=== PATIENT | male | born 1995 | race Hispanic/Latino ===

== ENCOUNTER 2018-07-15 19:48 | Emergency (ER) | payer SELFPAY ==
--- NOTE | 2018-07-15 20:39 | EDPHYS ---
Physician Documentation [facility] Name: Felix Frias Age: 23 yrs Sex: Male : 1995 Arrival Date: 07/15/2018 Time: 19:51 Bed 27 Private MD: ED Physician Edgar Restrepo HPI: 07/15 20:35 This 23 yrs old Male presents to ER via Ambulatory with complaints of Head cp Injury-Adult. 20:35 The patient or guardian reports injury. The complaints affect the top of head. Context cp of injury: The problem was sustained at work, stood up quickly while under metal bar at work this morning about 1100. Hit top of head on metal bar. No LOC. No vomiting since injury. Pain improved since injury. Historical: - Allergies: 20:14 No Known Allergies; sr5 - Home Meds: 20:14 None [Active]; sr5 - PMHx: 20:14 None; sr5 - PSHx: 20:14 None; sr5 - Immunization history:: Adult Immunizations unknown. - Social history:: Smoking status: Patient/guardian denies using tobacco, never smoked. - Ebola Screening: : Patient negative for fever greater than or equal to 101.5 degrees Fahrenheit, and additional compatible Ebola Virus Disease symptoms. ROS: 20:37 Constitutional: Negative for body aches, chills, fever, poor PO intake. cp 20:37 Neck: Negative for pain with movement, stiffness, bony tenderness. 20:37 Cardiovascular: Negative for chest pain, edema, palpitations. 20:37 Respiratory: Negative for cough, shortness of breath, wheezing. 20:37 Abdomen/GI: Negative for nausea, vomiting. 20:37 MS/extremity: Positive for contusion, of the top of head. 20:37 Neuro: Negative for altered mental status, headache, numbness, weakness. 20:37 All other systems are negative. Exam: 20:37 Constitutional: The patient appears in no acute distress, alert, awake, non-toxic, well cp developed, well nourished. 20:37 Head/Face: Normocephalic, atraumatic. cp 20:37 Eyes: Periorbital structures: appear normal, Pupils: equal, round, and reactive to light and accomodation, Extraocular movements: intact throughout, Conjunctiva: normal, no exudate, no injection, Sclera: no appreciated abnormality, Lids and lashes: appear normal, bilaterally. 20:37 ENT: External ear(s): are unremarkable, Ear canal(s): are normal, clear, TM's: bulging, is not appreciated, bilaterally, dullness, bilaterally, erythema, is not appreciated, bilaterally, Nose: is normal, Mouth: Lips: moist, Oral mucosa: pink and intact, moist, Posterior pharynx: is normal, airway is patent, no erythema, no exudate, Voice: is normal. 20:37 Neck: C-spine: vertebral tenderness, is not appreciated, crepitus, is not appreciated, ROM/movement: is normal, is supple, without pain, no range of motions limitations, no nuchal rigidity. 20:37 Chest/axilla: Inspection: normal, Palpation: is normal, no crepitus, no tenderness. 20:37 Cardiovascular: Rate: normal, Rhythm: regular. 20:37 Respiratory: the patient does not display signs of respiratory distress, Respirations: normal, no use of accessory muscles, no retractions, no splinting, no tachypnea, labored breathing, is not present, Breath sounds: are clear throughout, no decreased breath sounds, no stridor, no wheezing. 20:37 Abdomen/GI: Inspection: abdomen appears normal, Palpation: abdomen is soft and non-tender, in all quadrants. 20:37 Back: pain, is absent, ROM is normal. 20:37 Musculoskeletal/extremity: Exam is negative for bony tenderness, decreased range of motion, deformity, injury. 20:37 Skin: Exam negative for laceration. 20:37 Neuro: Orientation: to person, place \T\ time. Mentation: lucid, able to follow commands, Cerebellar function: is grossly normal, Motor: moves all fours, strength is normal, Sensation: no obvious gross deficits. Vital Signs: 20:14 BP 141 / 79; Pulse 62; Resp 14; Temp 98.6; Pulse Ox 97% on R/A; Weight 97.52 kg; Height sr5 5 ft. 6 in. (167.64 cm); Pain 4/10; 20:32 BP 126 / 72; Pulse 65; Resp 18; Pulse Ox 98% ; tl3 20:14 Body Mass Index 34.70 (97.52 kg, 167.64 cm) sr5 Adele Coma Score: 20:12 Eye Response: spontaneous(4). Verbal Response: oriented(5). Motor Response: obeys sr5 commands(6). Total: 15. 20:35 Eye Response: spontaneous(4). Verbal Response: oriented(5). Motor Response: obeys cp commands(6). Total: 15. 20:38 Eye Response: spontaneous(4). Verbal Response: oriented(5). Motor Response: obeys cp commands(6). Total: 15. MDM: 20:18 Patient medically screened. cp 20:30 Differential diagnosis: Contusion of head, Hematoma on head, Laceration of scalp, cp Intracranial bleed- Concussion without LOC. cerebral contusion. 20:38 Data reviewed: vital signs, nurses notes, and as a result, I will discharge patient. cp Counseling: I had a detailed discussion with the patient and/or guardian regarding: the historical points, exam findings, and any diagnostic results supporting the discharge/admit diagnosis, to return to the emergency department if symptoms worsen or persist or if there are any questions or concerns that arise at home. 07/15 20:29 Order name: Urine Dipstick--Ancillary (enter results) mw2 Administered Medications: No medications were administered Disposition: 21:00 Chart complete. cp 07/16 01:58 Co-signature as Attending Physician, Edgar Restrepo MD. rn Disposition: 07/15/18 20:38 Discharged to Home. Impression: Contusion of unspecified part of head. - Condition is Stable. - Discharge Instructions: Concussion, Adult, Head Injury, Adult. - Medication Reconciliation Form, Thank You Letter, Antibiotic Education, Prescription Opioid Use form. - Follow up: Emergency Department; When: As needed; Reason: Worsening of condition. - Problem is new. - Symptoms have improved. Signatures: Dispatcher [employer] Edgar Mccann MD MD rn Claude Hernandez PA PA cp Resecker, Sam, RN RN sr5 Lata Ackerman RN RN tl3 Corrections: (The following items were deleted from the chart) 07/15 20:46 20:38 07/15/2018 20:38 Discharged to Home. Impression: Contusion of unspecified part of tl3 head. Condition is Stable. Forms are Medication Reconciliation Form, Thank You Letter, Antibiotic Education, Prescription Opioid Use. Follow up: Emergency Department; When: As needed; Reason: Worsening of condition. Problem is new. Symptoms have improved. cp
--- NOTE | 2018-07-15 20:39 | ER ---
Nurse's Notes [facility] Name: Felix Frias Age: 23 yrs Sex: Male : 1995 Arrival Date: 07/15/2018 Time: 19:51 Bed 27 Private MD: Diagnosis: Contusion of unspecified part of head Presentation: 07/15 20:12 Presenting complaint: Patient states: hit head on bar "came up under bar" striking top sr5 of head, approx noon today while at work. Denies LOC/vomiting. Reports vision light sensitivity. Denies PMH. Transition of care: patient was not received from another setting of care. Mechanism of Injury: resulted from stood up stiking top of head on a metal bar. Onset of symptoms was July 15, 2018. Risk Assessment: Do you want to hurt yourself or someone else? Patient reports no desire to harm self or others. Initial Sepsis Screen: Does the patient meet any 2 criteria? No. Patient's initial sepsis screen is negative. Does the patient have a suspected source of infection? No. Patient's initial sepsis screen is negative. Care prior to arrival: Medication(s) given: MIDOL. 20:12 Method Of Arrival: Ambulatory sr5 20:12 Acuity: PARISH 4 sr5 Triage Assessment: 20:14 General: Appears in no apparent distress. Behavior is calm, cooperative. Pain: sr5 Complains of pain in left frontal area Pain currently is 4 out of 10 on a pain scale. Quality of pain is described as aching. Neuro: Level of Consciousness is awake, alert, obeys commands, Oriented to person, place, time, situation, Gait is steady, Reports photophobia. Cardiovascular: No deficits noted. Respiratory: No deficits noted. Historical: - Allergies: 20:14 No Known Allergies; sr5 - Home Meds: 20:14 None [Active]; sr5 - PMHx: 20:14 None; sr5 - PSHx: 20:14 None; sr5 - Immunization history:: Adult Immunizations unknown. - Social history:: Smoking status: Patient/guardian denies using tobacco, never smoked. - Ebola Screening: : Patient negative for fever greater than or equal to 101.5 degrees Fahrenheit, and additional compatible Ebola Virus Disease symptoms. Screenin:32 Abuse screen: Denies threats or abuse. Nutritional screening: No deficits noted. tl3 Tuberculosis screening: No symptoms or risk factors identified. Fall Risk None identified. Assessment: 20:32 General: Appears uncomfortable, well groomed, well developed, well nourished, Behavior tl3 is calm, cooperative, appropriate for age, anxious. Pain: Complains of pain in scalp and left frontal area. Neuro: Level of Consciousness is awake, alert, obeys commands, Oriented to person, place, time, situation, Appropriate for age Reports hit his head on a pipe this morning at about 11am, no LOC, no Vomiting, did get headache and light sensitivity earlier, no sensitivity currently. 20:32 Cardiovascular: Patient's skin is warm and dry. Respiratory: Airway is patent tl3 Respiratory effort is even, unlabored, Respiratory pattern is regular, symmetrical. GI: No signs and/or symptoms were reported involving the gastrointestinal system. : No signs and/or symptoms were reported regarding the genitourinary system. EENT: No signs and/or symptoms were reported regarding the EENT system. Derm: No signs and/or symptoms reported regarding the dermatologic system. Musculoskeletal: No signs and/or symptoms reported regarding the musculoskeletal system. Vital Signs: 20:14 BP 141 / 79; Pulse 62; Resp 14; Temp 98.6; Pulse Ox 97% on R/A; Weight 97.52 kg; Height sr5 5 ft. 6 in. (167.64 cm); Pain 4/10; 20:32 BP 126 / 72; Pulse 65; Resp 18; Pulse Ox 98% ; tl3 20:14 Body Mass Index 34.70 (97.52 kg, 167.64 cm) sr5 Commiskey Coma Score: 20:12 Eye Response: spontaneous(4). Verbal Response: oriented(5). Motor Response: obeys sr5 commands(6). Total: 15. 20:35 Eye Response: spontaneous(4). Verbal Response: oriented(5). Motor Response: obeys cp commands(6). Total: 15. 20:38 Eye Response: spontaneous(4). Verbal Response: oriented(5). Motor Response: obeys cp commands(6). Total: 15. ED Course: 19:51 Patient arrived in ED. es 20:13 Triage completed. sr5 20:14 Arm band placed on right wrist. sr5 20:18 Claude Hernandez PA is PHCP. cp 20:18 Edgar Restrepo MD is Attending Physician. cp 20:20 Urine collected: clean catch specimen, clear, ward colored. jp3 20:25 Lata Ackerman, RN is Primary Nurse. tl3 20:32 Patient has correct armband on for positive identification. Bed in low position. Pulse tl3 ox on. NIBP on. 20:32 No provider procedures requiring assistance completed. Patient did not have IV access tl3 during this emergency room visit. Administered Medications: No medications were administered Outcome: 20:38 Discharge ordered by MD. cp 20:45 Discharged to home ambulatory. tl3 20:45 Condition: good 20:45 Discharge instructions given to patient, Instructed on discharge instructions, follow up and referral plans. Demonstrated understanding of instructions, follow-up care. 20:46 Patient left the ED. tl3 Signatures: Khushbu Major Corey, PA PA cp Christopher Stockton RN RN sr5 Lata Ackerman, RN RN tl3 Hamzah Peñaloza jp3 Corrections: (The following items were deleted from the chart) 20:16 20:12 Care prior to arrival: None. sr5 sr5
[2018-07-15 21:45] LABS: Urine Blood TRACE (NEG); Urine Glucose NEGATIVE (NEG); Urine Protein NEGATIVE (NEG); Urine pH 7.5 (5.0-7.0)
== END 2018-07-15 20:46 | disposition home or self-care (01) ==
LOC: ER 19:48
DX: S00.93XA Contusion of unspecified part of head, initial encounter (principal); W22.8XXA Striking against or struck by other objects, initial encounter; Y93.89 Activity, other specified; Y92.89 Other specified places as the place of occurrence of the external cause; Y99.0 Civilian activity done for income or pay
CPT/HCPCS: 81003; 99283

== ENCOUNTER 2018-11-06 09:30 | Emergency (ER) | payer SELFPAY ==
--- NOTE | 2018-11-06 10:55 | EDPHYS ---
Physician Documentation [facility] Name: Felix Frias Age: 23 yrs Sex: Male : 1995 Arrival Date: 11/06/2018 Time: 09:34 Bed 12 Private MD: ED Physician Claude Hurtado HPI: 11/06 10:48 This 23 yrs old Male presents to ER via Ambulatory with complaints of Left pm1 Knee Pain. 10:48 The patient presents with pain. The complaints affect the left knee. Context: The pm1 problem was sustained at home, resulted from Pushing, moving furniture, the patient can fully bear weight, the patient is able to ambulate, without difficulty, Problem is a result from a previous injury: No. Onset: The symptoms/episode began/occurred 2.5 week(s) ago. Modifying factors: The symptoms are alleviated by nothing. the symptoms are aggravated by weight bearing, pushing with legs. Associated signs and symptoms: Pertinent negatives calf tenderness, fever, numbness, tingling, weakness. Treatment prior to arrival includes: no previous treatment. Severity of symptoms: in the emergency department the symptoms have improved. The patient has not experienced similar symptoms in the past. patient with bilateral knee pain that started 2.5 weeks ago after moving some furniture at home. Pain to right knee has resolved but he still has some left knee pain remaining. Left knee pain increased after moving additional furniture a few days ago. Historical: - Allergies: 09:46 No Known Allergies; aa5 - Home Meds: 09:46 None [Active]; aa5 - PMHx: 09:46 None; aa5 - Immunization history:: Adult Immunizations up to date. - Social history:: Smoking status: Patient uses tobacco products, smokes one-half pack cigarettes per day. - Ebola Screening: : No symptoms or risks identified at this time. ROS: 10:48 Constitutional: Negative for fever, chills, and weight loss, Eyes: Negative for injury, pm1 pain, redness, and discharge, ENT: Negative for injury, pain, and discharge, Neck: Negative for injury, pain, and swelling, Cardiovascular: Negative for chest pain, palpitations, and edema, Respiratory: Negative for shortness of breath, cough, wheezing, and pleuritic chest pain, Abdomen/GI: Negative for abdominal pain, nausea, vomiting, diarrhea, and constipation, Back: Negative for injury and pain, : Negative for injury, bleeding, discharge, and swelling. 10:48 Skin: Negative for injury, rash, and discoloration, Neuro: Negative for headache, weakness, numbness, tingling, and seizure. 10:48 MS/extremity: Positive for pain, of the left knee, Negative for decreased range of motion, deformity. Exam: 10:48 Constitutional: This is a well developed, well nourished patient who is awake, alert, pm1 and in no acute distress. Head/Face: Normocephalic, atraumatic. Eyes: Pupils equal round and reactive to light, extra-ocular motions intact. Lids and lashes normal. Conjunctiva and sclera are non-icteric and not injected. Cornea within normal limits. Periorbital areas with no swelling, redness, or edema. ENT: Nares patent. No nasal discharge, no septal abnormalities noted. Tympanic membranes are normal and external auditory canals are clear. Oropharynx with no redness, swelling, or masses, exudates, or evidence of obstruction, uvula midline. Mucous membranes moist. Neck: Trachea midline, no thyromegaly or masses palpated, and no cervical lymphadenopathy. Supple, full range of motion without nuchal rigidity, or vertebral point tenderness. No Meningismus. Chest/axilla: Normal chest wall appearance and motion. Nontender with no deformity. No lesions are appreciated. Cardiovascular: Regular rate and rhythm with a normal S1 and S2. No gallops, murmurs, or rubs. Normal PMI, no JVD. No pulse deficits. Respiratory: Lungs have equal breath sounds bilaterally, clear to auscultation and percussion. No rales, rhonchi or wheezes noted. No increased work of breathing, no retractions or nasal flaring. Abdomen/GI: Soft, non-tender, with normal bowel sounds. No distension or tympany. No guarding or rebound. No evidence of tenderness throughout. Back: No spinal tenderness. No costovertebral tenderness. Full range of motion. Skin: Warm, dry with normal turgor. Normal color with no rashes, no lesions, and no evidence of cellulitis. 10:48 Musculoskeletal/extremity: Extremities: all appear grossly normal, with no appreciated pain with palpation, ROM: intact in all extremities, full active range of motion, in the left knee, full passive range of motion, in the left knee. 10:48 Neuro: Orientation: is normal, Motor: is normal, Gait: is steady, at a normal pace, without difficulty. Vital Signs: 09:46 BP 128 / 75; Pulse 75; Resp 18 S; Temp 98.4(O); Pulse Ox 99% on R/A; Weight 103.42 kg aa5 (R); Height 5 ft. 6 in. (167.64 cm) (R); Pain 0/10; 09:46 Body Mass Index 36.80 (103.42 kg, 167.64 cm) aa5 MDM: 09:56 Patient medically screened. [facility] 10:53 Data reviewed: vital signs. Data interpreted: Pulse oximetry: on room air is 99 %. pm1 Interpretation: normal. Counseling: I had a detailed discussion with the patient and/or guardian regarding: the historical points, exam findings, and any diagnostic results supporting the discharge/admit diagnosis, the need for outpatient follow up, for definitive care, a orthopedic surgeon, MRI, to return to the emergency department if symptoms worsen or persist or if there are any questions or concerns that arise at home. 11/06 10:24 Order name: Alex wrap-joint; Complete Time: 10:52 pm1 Administered Medications: 11:00 Drug: Ibuprofen 600 mg Route: PO; 11:02 Follow up: Response: No adverse reaction; Medication administered at discharge. 11:00 Drug: Flexeril 10 mg Route: PO; 11:02 Follow up: Response: No adverse reaction; Medication administered at discharge. Disposition: 11/07 06:30 Co-signature as Attending Physician, Claude Hurtado MD I agree with the assessment and [facility] plan of care. Disposition: 11/06/18 10:54 Discharged to Home. Impression: Pain in left knee. - Condition is Stable. - Discharge Instructions: Joint Pain, Musculoskeletal Pain, Knee Pain. - Prescriptions for Naprosyn 500 mg Oral Tablet - take 1 tablet by ORAL route 2 times per day As needed take with food; 30 tablet. Cyclobenzaprine 10 mg Oral Tablet - take 1 tablet by ORAL route every 8 hours As needed; 30 tablet. - Work release form, Medication Reconciliation Form, Thank You Letter, Antibiotic Education, Prescription Opioid Use form. - Follow up: Private Physician; When: 2 - 3 days; Reason: Recheck today's complaints, Continuance of care, Re-evaluation by your physician. Follow up: Emergency Department; When: As needed; Reason: Worsening of condition. - Problem is new. - Symptoms have improved. Signatures: Claude Hurtado MD MD cha Calderon, Audri, RN RN aa5 Gilma Clinton RN RN ss Jeremías Messina, CONSOLE ATTENDANT CONSOLE ATTENDANT pm1 Corrections: (The following items were deleted from the chart) 11/06 11:08 10:54 11/06/2018 10:54 Discharged to Home. Impression: Pain in left knee. Condition is ss Stable. Forms are Medication Reconciliation Form, Thank You Letter, Antibiotic Education, Prescription Opioid Use. Follow up: Private Physician; When: 2 - 3 days; Reason: Recheck today's complaints, Continuance of care, Re-evaluation by your physician. Follow up: Emergency Department; When: As needed; Reason: Worsening of condition. Problem is new. Symptoms have improved. pm1
--- NOTE | 2018-11-06 10:55 | ER ---
Nurse's Notes [facility] Name: Felix Frias Age: 23 yrs Sex: Male : 1995 Arrival Date: 11/06/2018 Time: 09:34 Bed 12 Private MD: Diagnosis: Pain in left knee Presentation: 11/06 09:44 Presenting complaint: Patient states: joseph knee pain. Pt states "I was moving stuff aa5 about 2 weeks ago and that's when the pain started but yesterday I moved something heavy and it started hurting again, the left one hurts worse". Steady gait noted. Transition of care: patient was not received from another setting of care. Onset of symptoms was October 2018. Risk Assessment: Do you want to hurt yourself or someone else? Patient reports no desire to harm self or others. Initial Sepsis Screen: Does the patient meet any 2 criteria? No. Patient's initial sepsis screen is negative. Does the patient have a suspected source of infection? No. Patient's initial sepsis screen is negative. Care prior to arrival: None. 09:44 Method Of Arrival: Ambulatory [facility] 09:44 Acuity: PARISH 4 aa5 Historical: - Allergies: 09:46 No Known Allergies; aa5 - Home Meds: 09:46 None [Active]; aa5 - PMHx: 09:46 None; aa5 - Immunization history:: Adult Immunizations up to date. - Social history:: Smoking status: Patient uses tobacco products, smokes one-half pack cigarettes per day. - Ebola Screening: : No symptoms or risks identified at this time. Screenin:49 Abuse screen: Denies threats or abuse. Nutritional screening: No deficits noted. aa5 Tuberculosis screening: No symptoms or risk factors identified. Fall Risk None identified. Assessment: 09:45 General: Appears comfortable, Behavior is calm, cooperative. Pain: Complains of pain in aa5 joseph knees Pain does not radiate. Pain currently is 0 out of 10 on a pain scale. Quality of pain is described as aching, Pain began 2 weeks ago. Pt reports pain only with movement and walking. Neuro: Level of Consciousness is awake, alert, obeys commands, Oriented to person, place, time, situation. Cardiovascular: No deficits noted. Patient's skin is warm and dry. Respiratory: Airway is patent Respiratory effort is even, unlabored, Respiratory pattern is regular, symmetrical. GI: No signs and/or symptoms were reported involving the gastrointestinal system. : No signs and/or symptoms were reported regarding the genitourinary system. EENT: No signs and/or symptoms were reported regarding the EENT system. Derm: Skin is pink, warm \\T\\ dry. Musculoskeletal: Range of motion: intact in all extremities. 11:00 Reassessment: Patient appears in no apparent distress at this time. Patient and/or ss family updated on plan of care and expected duration. Pain level reassessed. Patient is alert, oriented x 3, equal unlabored respirations, skin warm/dry/pink. Pt reports instant relief from knee pain after application of ALEX wrap to L knee. Vital Signs: 09:46 BP 128 / 75; Pulse 75; Resp 18 S; Temp 98.4(O); Pulse Ox 99% on R/A; Weight 103.42 kg aa5 (R); Height 5 ft. 6 in. (167.64 cm) (R); Pain 0/10; 09:46 Body Mass Index 36.80 (103.42 kg, 167.64 cm) aa5 ED Course: 09:34 Patient arrived in ED. rg4 09:46 Triage completed. aa5 09:46 Leonie Dumont, RN is Primary Nurse. aa5 09:46 Arm band placed on. aa5 09:46 Patient has correct armband on for positive identification. Call light in reach. aa5 09:49 No provider procedures requiring assistance completed. aa5 09:56 Jeremías Messina NP is PHCP. pm1 09:56 Claude Hurtado MD is Attending Physician. pm1 11:00 Patient did not have IV access during this emergency room visit. ss 11:01 Alex wrap to left knee. ss Administered Medications: 11:00 Drug: Ibuprofen 600 mg Route: PO; ss 11:02 Follow up: Response: No adverse reaction; Medication administered at discharge. ss 11:00 Drug: Flexeril 10 mg Route: PO; ss 11:02 Follow up: Response: No adverse reaction; Medication administered at discharge. Outcome: 10:54 Discharge ordered by . pm1 11:08 Discharged to home ambulatory. ss 11:08 Condition: good 11:08 Discharge instructions given to patient, Instructed on discharge instructions, follow up and referral plans. medication usage, Demonstrated understanding of instructions, follow-up care, medications, Prescriptions given X 2. 11:08 Patient left the ED. Signatures: Leonie Dumont RN RN aa5 Gilma Clinton RN RN ss Jeremías Messina, OFFICE SERVICES ASSISTANT OFFICE SERVICES ASSISTANT pm1 Consuelo Hatfield rg4 Corrections: (The following items were deleted from the chart) 09:49 09:44 Presenting complaint: Patient states: joseph knee pain. Pt states "I was moving aa5 stuff about 2 weeks ago and that's when the pain started but yesterday I moved something heavy and it started hurting again, the left one hurts worse" aa5 11:08 11:08 Discharge instructions given to patient, family, Instructed on discharge instructions, follow up and referral plans. medication usage, Demonstrated understanding of instructions, follow-up care, medications, Prescriptions given X 2, ss
[2018-11-06] MEDS ORDERED: CYCLOBENZAPRINE 10 MG TAB ONE (11:05)
[2018-11-06] MEDS ORDERED: IBUPROFEN 200 MG TAB PO ONE (11:06)
== END 2018-11-06 11:08 | disposition home or self-care (01) ==
LOC: ER 09:30
DX: M25.562 Pain in left knee (principal); F17.210 Nicotine dependence, cigarettes, uncomplicated
CPT/HCPCS: 99283

== ENCOUNTER 2019-01-28 22:08 | Inpatient (IN) | payer SELFPAY ==
[2019-01-28] MEDS ORDERED: NA CHLORIDE 0.9% 1,000 ML ONE ×2 (22:21→23:14)
[2019-01-28 22:36] LABS: Absolute Lymphocytes (CBC) 1.3 K/uL (0.7-4.9); Absolute Monocytes 1.8 K/uL (0.1-1.3); Absolute Neutrophil 21.3 K/uL (1.8-8.0); Basophils % 0.2 % (0-1.3); Eosinophils % 0.5 % (0-4.4); Hematocrit 55.2 % (39.6-49.0); Lymphocytes % 5.2 % (15.3-44.8); MPV 8.4 fL (7.6-11.3); Monocytes % 7.2 % (3.3-12.3); RBC Red Blood Cell Count 5.97 M/uL (4.33-5.43)
[2019-01-28] MEDS ORDERED: PROPOFOL 1,000 MG/100 ML VIAL IV ONE (22:38)
[2019-01-28 22:42] LABS: Protime INR 1.03
[2019-01-28 23:01] LABS: Barbiturates NEGATIVE (NEGATIVE); Benzodiazepines NEGATIVE (NEGATIVE); Cocaine NEGATIVE (NEGATIVE); METHAMPHETAM NEGATIVE (NEGATIVE); Methadone NEGATIVE (NEGATIVE); Opiates POSITIVE (NEGATIVE); Phencyclidine POSITIVE (NEGATIVE); THC Cannibis NEGATIVE (NEGATIVE)
[2019-01-28 23:04] LABS: ALT/SGPT 39 U/L (12-78); AST/SGOT 21 U/L (15-37); Albumin 4.3 g/dL (3.4-5.0); Alkaline Phosphatase 88 U/L (45-117); BUN Blood Urea Nitrogen 15 mg/dL (7-18); Bicarbonate 25 mmol/L (21-32); Bilirubin Direct 0.1 mg/dL (0-0.2); Bilirubin Total 0.4 mg/dL (0.2-1.0); Glucose Level 124 mg/dL (74-106); Potassium 4.1 mmol/L (3.5-5.1); Protein, Total 8.4 g/dL (6.4-8.2); Sodium Level 137 mmol/L (136-145)
[2019-01-28 23:14] LABS: Urine Blood NEGATIVE (NEG); Urine Glucose NEGATIVE (NEG); Urine Protein 2+ (NEG); Urine pH 5.5 (5.0-7.0)
[2019-01-28] MEDS ORDERED: LORazepam 2 MG/ML VIAL ONE (23:40)
[2019-01-28 23:56] LABS: Blood Morphology Comment NOT SEEN (NOT SEEN); Platelet Estimate ADEQ
[2019-01-29] MEDS ORDERED: NA CHLORIDE 0.9% 1,000 ML ONE ×3 (00:27→09:53)
--- NOTE | 2019-01-29 01:49 | EDPHYS ---
Physician Documentation [facility] Name: Felix Frias Age: 23 yrs Sex: Male : 1995 Arrival Date: 01/28/2019 Time: 22:09 Bed 3 Private MD: ED Physician Josué Beltran HPI: 01/29 01:34 This 23 yrs old Male presents to ER via EMS with complaints of Overdose. jr8 01:34 The patient presents to the emergency department after a known overdose, that was jr8 intentional. Context: Method: the patient has a confirmed or suspected ingestion, Psychiatric history: the patient has a known psychiatric disorder, depression. Associated signs and symptoms: Pertinent positives: decreased level of consciousness. Severity of symptoms: At their worst the symptoms were moderate in the emergency department the symptoms are unchanged. It is unknown whether or not the patient has had similar symptoms in the past. The patient has not recently seen a physician. EMS stated that last known well was around 5pm. Stated that sister found him unconscious and unresponsive when she got home. Had cough medicine around him amongst other medications that the family uses. History of depression and SI in past. Stated that he has been more depressed as of lately. Medicine that he possible ingested tonight is Tramadol, Amitriptyline, Phenergan, NyQuil, and cough syrup . Historical: - Allergies: 01/28 23:00 No Known Allergies; lp1 - Immunization history:: Adult Immunizations unknown. - Social history:: Smoking status: unknown. - Ebola Screening: : No symptoms or risks identified at this time. ROS: 01/29 01:34 Unable to obtain ROS due to altered mental status, obtunded state. jr8 Exam: 01:34 Eyes: Pupils equal round and reactive to light but sluggish. Extra-ocular motions jr8 intact. Lids and lashes normal. Conjunctiva and sclera are non-icteric and not injected. Cornea within normal limits. Periorbital areas with no swelling, redness, or edema. ENT: Nares patent. No nasal discharge, no septal abnormalities noted. Tympanic membranes are normal and external auditory canals are clear. Oropharynx with no redness, swelling, or masses, exudates, or evidence of obstruction, uvula midline. Mucous membranes moist. Neck: Trachea midline, no thyromegaly or masses palpated, and no cervical lymphadenopathy. Supple, full range of motion without nuchal rigidity, or vertebral point tenderness. No Meningismus. Cardiovascular: Sinus Tachycardia with a normal rhythm with a normal S1 and S2. No gallops, murmurs, or rubs. Normal PMI, no JVD. No pulse deficits. Respiratory: Lungs have equal breath sounds bilaterally, clear to auscultation and percussion. No rales, rhonchi or wheezes noted. Shallow respirations present. Abdomen/GI: Soft with normal bowel sounds. No distension or tympany. No guarding or rebound Skin: Warm, dry with normal turgor. Normal color with no rashes, no lesions, and no evidence of cellulitis. MS/ Extremity: Pulses equal, no cyanosis. Neurovascular intact. Full, normal range of motion. 01:34 Neuro: Orientation: Not oriented to person, place, time, situation, Mentation: unable to follow commands, somnolent, responsive to pain, Memory: immediate memory is impaired, remote memory is impaired, recent memory is impaired, Motor: moves all fours, Gait: not tested. seizure activity, is not displayed by the patient, Abnormal movements: there are no abnormal movements. Vital Signs: 01/28 21:54 BP 137 / 73; Pulse 130; Resp 10; Pulse Ox 84% on R/A; Weight 108.86 kg; lp1 22:00 BP 122 / 91; Pulse 133; Pulse Ox 97% on BVM; lp1 22:15 BP 141 / 99; Pulse 130; Resp 15; Pulse Ox 97% on 50% FiO2 ETT vent; lp1 22:20 BP 136 / 76; Pulse 145; Resp 17; Pulse Ox 100% on 50% FiO2 ETT vent; lp1 22:30 BP 117 / 79; Pulse 130; Resp 17; Pulse Ox 97% on 50% FiO2 ETT vent; lp1 22:40 BP 147 / 90; Pulse 126; Resp 18; Pulse Ox 98% on 50% FiO2 ETT vent; lp1 23:00 BP 137 / 49; Pulse 128; Resp 18; Temp 97.7(C); Pulse Ox 99% on 50% FiO2 ETT vent; lp1 23:15 BP 128 / 40; Pulse 134; Resp 18; Temp 98.1(C); Pulse Ox 98% on 50% FiO2 ETT vent; lp1 23:45 BP 86 / 30; Pulse 127; Resp 18; Temp 98.2(C); Pulse Ox 98% on 50% FiO2 ETT vent; lp1 01/29 00:00 BP 90 / 36; Pulse 125; Resp 18; Temp 98.3(C); Pulse Ox 98% on 50% FiO2 ETT vent; lp1 00:10 BP 91 / 41; Pulse 124; Resp 18; Temp 98.3(C); Pulse Ox 98% on ETT vent; lp1 00:20 BP 83 / 35; Pulse 125; Resp 18; Temp 98.3(C); Pulse Ox 98% on 50% FiO2 ETT vent; lp1 00:50 BP 80 / 37; Pulse 129; Resp 18; Temp 98.5(C); Pulse Ox 98% on 50% FiO2 ETT vent; lp1 01:10 BP 83 / 44; Pulse 126; Resp 18; Temp 98.6(C); Pulse Ox 98% on 50% FiO2 ETT vent; lp1 01:30 BP 83 / 37; Pulse 125; Resp 18; Temp 98.6(C); Pulse Ox 98% on 50% FiO2 ETT vent; lp1 01:40 BP 108 / 52; Pulse 125; Resp 18; Temp 98.6(C); Pulse Ox 98% on 50% FiO2 ETT vent; lp1 01:50 BP 100 / 34; Pulse 124; Resp 22; Temp 98.6(C); Pulse Ox 99% on 50% FiO2 ETT vent; lp1 02:00 BP 88 / 35; Pulse 117; Resp 18; Temp 98.5(C); Pulse Ox 96% on 50% FiO2 ETT vent; lp1 02:15 BP 87 / 35; Pulse 117; Resp 18; Temp 98.7(C); Pulse Ox 96% on 50% FiO2 ETT vent; lp1 02:30 BP 96 / 43; Pulse 120; Resp 18; Temp 98.8(C); Pulse Ox 97% on 50% FiO2 ETT vent; lp1 02:50 BP 93 / 39; Pulse 123; Resp 18; Temp 98.8(C); Pulse Ox 96% on 50% FiO2 ETT vent; lp1 03:00 BP 108 / 51; Pulse 122; Resp 18; Temp 98.9(C); Pulse Ox 96% on 50% FiO2 ETT vent; lp1 03:20 BP 113 / 38; Pulse 125; Resp 18; Temp 99.1(C); Pulse Ox 95% on 50% FiO2 ETT vent; lp1 03:40 BP 113 / 39; Pulse 122; Resp 22; Temp 99.2(C); Pulse Ox 94% on 50% FiO2 ETT vent; lp1 04:00 BP 107 / 39; Pulse 121; Resp 18; Temp 99.4(C); Pulse Ox 95% on 50% FiO2 ETT vent; lp1 04:20 BP 109 / 44; Pulse 120; Resp 18; Temp 99.6(C); Pulse Ox 95% on 50% FiO2 ETT vent; lp1 04:40 BP 109 / 41; Pulse 120; Resp 18; Temp 99.7(C); Pulse Ox 95% on 50% FiO2 ETT vent; lp1 05:00 BP 131 / 58; Pulse 124; Resp 18; Temp 99.8(C); Pulse Ox 95% on 50% FiO2 ETT vent; lp1 [place] Coma Score: 01/28 21:55 Eye Response: to pain(2). Verbal Response: incomprehensible(2). Motor Response: lp1 withdraws from pain(4). Total: 8. 01/29 01:34 Eye Response: to pain(2). Verbal Response: incomprehensible(2). Motor Response: jr8 withdraws from pain(4). Total: 8. Procedures: 01:46 Intubation: Ventilated with 100% NRB prior to procedure. O2 saturation prior to jr8 procedure was 95 %. Intubated orally using # 4 Sallie blade with 8.0 mm ETT. was successful on first attempt. Ventilated with Ambu bag. ventilator. Tube secured with ETT olivo at center of mouth measured 23 cm at lip. Placement verified by CXR, CO2 detector with (+) color change, auscultating bilateral breath sounds, O2 saturation after procedure was 100 %. Patient tolerated well. 02:20 Central Line: the site was prepped with Betadine, in sterile fashion, a triple lumen jr8 catheter was inserted, in the right femoral vein, in 1 attempts. placement was verified, by blood return, the site was dressed with 4X4s, Tegaderm, foam tape, using sterile technique, the patient tolerated the procedure, well. MDM: 01/28 22:23 Patient medically screened. [facility] 01/29 01:46 Data reviewed: vital signs, nurses notes, lab test result(s), EKG, radiologic studies, [facility] plain films. Data interpreted: Pulse oximetry: on ventilator is 100 %. Interpretation: normal. Counseling: I had a detailed discussion with the patient and/or guardian regarding: the historical points, exam findings, and any diagnostic results supporting the discharge/admit diagnosis, lab results, radiology results, the need for further work-up and treatment in the hospital. Physician consultation: Grace Gregorio MD was called at 01:47, was contacted at 01:47, regarding admission, to the ICU, consult, patient's condition, and will see patient in ED. 01/28 22:24 Order name: Acetaminophen; Complete Time: 23:14 [facility] 01/28 22:24 Order name: Basic Metabolic Panel; Complete Time: 23:14 [facility] 01/28 22:24 Order name: CBC with Diff; Complete Time: 01:03 [facility] 01/28 22:24 Order name: ETOH Level; Complete Time: 23:14 [facility] 01/28 22:24 Order name: Hepatic Function; Complete Time: 23:14 [facility] 01/28 22:24 Order name: PT-INR; Complete Time: 23:14 [facility] 01/28 22:24 Order name: Ptt, Activated; Complete Time: 23:14 [facility] 01/28 22:24 Order name: Salicylate; Complete Time: 23:14 [facility] 01/28 22:24 Order name: Urine Drug Screen; Complete Time: 23:14 [facility] 01/28 22:37 Order name: Urine Dipstick--Ancillary (enter results); Complete Time: 23:16 eb 01/28 23:56 Order name: Manual Differential; Complete Time: 01:03 EDMS 01/29 02:02 Order name: CPK; Complete Time: 02:56 lp1 01/29 02:02 Order name: Acetaminophen; Complete Time: 02:56 lp1 01/29 02:02 Order name: Basic Metabolic Panel; Complete Time: 02:56 lp1 01/28 22:24 Order name: XRAY Chest (1 view); Complete Time: 10:42 [facility] 01/29 06:10 Order name: ABG Arterial Blood Gas; Complete Time: 10:42 EDHI 01/29 07:06 Order name: Acetaminophen Level; Complete Time: 10:42 EDMS 01/29 10:54 Order name: Lactate [facility] 01/29 10:54 Order name: Comprehensive Metabolic Panel [facility] 01/29 10:55 Order name: Creatine Phosphokinase ED[facility] 01/29 10:55 Order name: CKMB Creatine Kinase MB EDHI 01/29 10:55 Order name: CBC with Automated Diff [facility] 01/29 12:38 Order name: Sputum Culture ag 01/29 16:44 Order name: CBC with Automated Diff EDMS 01/29 17:06 Order name: Comprehensive Metabolic Panel ED[facility] 01/29 17:06 Order name: Phosphorus [facility] 01/29 17:06 Order name: Creatine Phosphokinase [facility] 01/29 17:06 Order name: CKMB Creatine Kinase MB [facility] 01/29 17:06 Order name: Magnesium [facility] 01/29 17:40 Order name: Lactate Sepsis 2 HR Follow-up [facility] 01/28 22:24 Order name: EKG; Complete Time: 22:24 [facility] 01/28 22:24 Order name: EKG - Nurse/Tech; Complete Time: 22:48 [facility] 01/28 22:24 Order name: IV Saline Lock; Complete Time: 23:44 [facility] 01/28 22:24 Order name: Labs collected and sent; Complete Time: 23:44 8 01/28 22:24 Order name: Urine Dipstick-Ancillary (obtain specimen); Complete Time: 22:48 [facility] 01/28 22:24 Order name: [place]; Complete Time: 23:44 [facility] 01/28 22:24 Order name: NG Tube; Complete Time: 23:44 8 Administered Medications: Discontinued: Propofol 5 mcg/kg/min IV at calculated rate continuous; titrate per protocol (titrate by 5-10mcg/kg/min every 10 min to max rate of 50 mcg/kg/min) 01/28 22:10 Drug: NS 0.9% 1000 ml Route: IV; Rate: 1000 ml; Site: left antecubital; lp1 23:00 Follow up: IV Status: Completed infusion; IV Intake: 1000ml lp1 22:14 Drug: Etomidate 10 mg Route: IVP; Site: left antecubital; lp1 22:20 Follow up: Response: No adverse reaction lp1 22:15 Drug: Rocuronium 100 mg Route: IVP; Site: left antecubital; lp1 22:20 Follow up: Response: No adverse reaction lp1 22:19 Drug: Succinylcholine 100 mg Route: IVP; Site: left hand; lp1 22:20 Follow up: Response: No adverse reaction lp1 22:20 Drug: Propofol 5 mcg/kg/min Route: IV; Rate: calculated rate; Site: left hand; lp1 23:11 Drug: NS 0.9% 1000 ml Route: IV; Rate: 1000 ml; Site: left hand; lp1 01/29 00:00 Follow up: IV Status: Completed infusion; IV Intake: 1000ml lp1 01/28 23:35 Drug: Ativan 2 mg Route: IVP; Site: right antecubital; lp1 01/29 00:30 Follow up: Response: No adverse reaction lp1 00:45 Drug: NS 0.9% 1000 ml Route: IV; Rate: 1000 ml; Site: right antecubital; lp1 02:00 Follow up: IV Status: Completed infusion; IV Intake: 1000ml lp1 02:00 Drug: Ativan 2 mg Route: IVP; Site: left hand; lp1 03:00 Follow up: Response: No adverse reaction lp1 02:29 Drug: NS 0.9% 1000 ml Route: IV; Rate: 125 ml/hr; Site: right femoral; lp1 05:14 Follow up: IV Status: Infusion continued upon admission lp1 02:29 Drug: Levophed (4 mg/250 mL D5W 4 mcg/min Route: IV; Rate: calculated rate; Site: right lp1 femoral; 03:00 Follow up: Rate change 10 mcg/min lp1 05:14 Follow up: IV Status: Infusion continued upon admission lp1 Disposition: 01/29/19 01:48 Hospitalization ordered by Grace Gregorio for Inpatient Admission. Preliminary diagnosis are Suicide attempt, Overdose, Hypotension. - Bed requested for Intensive Care Unit. - Status is Inpatient Admission. jb1 - Condition is Fair. - Problem is new. - Symptoms have improved. UTI on Admission? No Critical care time excluding procedures: 02:20 Critical care time: Bedside Care: 20 minutes, Consultation: 10 minutes, Family jr8 Intervention: 10 minutes. Total time: 40 minutes Signatures: Dispatcher [employer] EDMS Brett Loera jb1 Kary Zhou Corey, MD MD cha Pena, Laura RN RN lp1 Kentrell Awad PA PA jr8 Whitney Akers Corrections: (The following items were deleted from the chart) 02:03 01:48 Hospitalization Ordered by Grace Gregorio MD for Inpatient Admission. Preliminary eb diagnosis is Suicide attempt; Overdose; Hypotension. Bed requested for Intensive Care Unit. Status is Inpatient Admission. Condition is Fair. Problem is new. Symptoms have improved. UTI on Admission? No. jr8 16:53 02:03 01/29/2019 01:48 Hospitalization Ordered by Grace Gregorio MD for Inpatient bd Admission. Preliminary diagnosis is Suicide attempt; Overdose; Hypotension. Bed requested for [facility] ER HOLD. Status is Inpatient Admission. Condition is Fair. Problem is new. Symptoms have improved. UTI on Admission? No. eb 18:12 16:53 01/29/2019 01:48 Hospitalization Ordered by Grace Gregorio MD for Inpatient jb1 Admission. Preliminary diagnosis is Suicide attempt; Overdose; Hypotension. Bed requested for Intensive Care Unit. Status is Inpatient Admission. Condition is Fair. Problem is new. Symptoms have improved. UTI on Admission? No. bd
--- NOTE | 2019-01-29 01:49 | ER ---
Nurse's Notes [facility] Name: Felix Frias Age: 23 yrs Sex: Male : 1995 Arrival Date: 01/28/2019 Time: 22:09 Bed 3 Private MD: Diagnosis: Suicide attempt;Overdose;Hypotension Presentation: 01/28 21:50 Presenting complaint: EMS states: Called for patient with possible Nyquil Overdose; Per lp1 EMS, patient found with x3 Nyquil bottles around him; Unknown if pills also taken; Hx of previous suicide attempts; Patient arousable on painful stimuli. Transition of care: patient was not received from another setting of care. Onset of symptoms was January 28, 2019 at 17:00. Risk Assessment: Do you want to hurt yourself or someone else? Patient reports desire/thoughts of hurting themselves or someone else. Provider notified. Initial Sepsis Screen: Does the patient meet any 2 criteria? No. Patient's initial sepsis screen is negative. Does the patient have a suspected source of infection? No. Patient's initial sepsis screen is negative. Care prior to arrival: IV initiated. 22 GA, in the left hand, Glucose check: 119 Oxygen administered. via nasal cannula. 21:50 Method Of Arrival: EMS: [facility] lp1 21:50 Acuity: PAR[facility] 1 lp1 23:00 Note Family states finding prescription bottles of Zolpidem, Tramadol, Flexeril, lp1 Amitriptyline, Promethazine around patient. Historical: - Allergies: 23:00 No Known Allergies; lp1 - Immunization history:: Adult Immunizations unknown. - Social history:: Smoking status: unknown. - Ebola Screening: : No symptoms or risks identified at this time. Screenin:01 Abuse screen: Denies threats or abuse. Denies injuries from another. Nutritional lp1 screening: No deficits noted. Tuberculosis screening: No symptoms or risk factors identified. Fall Risk None identified. Assessment: 23:00 General: Appears obese, Behavior is unresponsive. lp1 23:00 Pain: Unable to use pain scale. Patient is unresponsive. Neuro: Level of Consciousness lp1 is unresponsive, Patient opens eyes to sternal rub/painful stimuli, then closes. Cardiovascular: Patient's skin is warm and dry. Respiratory: Airway via oral intubation Breath sounds are clear bilaterally. GI: Abdomen is non-distended. : Sheldon in place to gravity drainage. EENT: No deficits noted. Derm: Skin is pink, warm \T\ dry. Musculoskeletal: Capillary refill < 3 seconds, in bilateral fingers. 23:42 Reassessment: mother at bedside, care discussed with Provider at bedside. lp1 01/29 00:00 Reassessment: No changes from previously documented assessment. lp1 01:00 Reassessment: Patient and/or family updated on plan of care and expected duration. Pain lp1 level reassessed. Provider aware of low BP; family at bedside. 02:00 Neuro: Level of Consciousness is unresponsive. Cardiovascular: Patient's skin is warm lp1 and dry. Respiratory: Airway via oral intubation Respiratory pattern is regular, Breath sounds are clear bilaterally. : to gravity drainage 100 ml of urine output noted. 03:00 Reassessment: Patient appears in no apparent distress at this time. No changes from lp1 previously documented assessment. 04:00 Reassessment: Patient appears in no apparent distress at this time. Patient and/or lp1 family updated on plan of care and expected duration. Pain level reassessed. Patient resting, no need for sedation at this time; Provider aware. Vital Signs: 03 21:54 BP 137 / 73; Pulse 130; Resp 10; Pulse Ox 84% on R/A; Weight 108.86 kg; lp1 22:00 BP 122 / 91; Pulse 133; Pulse Ox 97% on BVM; lp1 22:15 BP 141 / 99; Pulse 130; Resp 15; Pulse Ox 97% on 50% FiO2 ETT vent; lp1 22:20 BP 136 / 76; Pulse 145; Resp 17; Pulse Ox 100% on 50% FiO2 ETT vent; lp1 22:30 BP 117 / 79; Pulse 130; Resp 17; Pulse Ox 97% on 50% FiO2 ETT vent; lp1 22:40 BP 147 / 90; Pulse 126; Resp 18; Pulse Ox 98% on 50% FiO2 ETT vent; lp1 23:00 BP 137 / 49; Pulse 128; Resp 18; Temp 97.7(C); Pulse Ox 99% on 50% FiO2 ETT vent; lp1 23:15 BP 128 / 40; Pulse 134; Resp 18; Temp 98.1(C); Pulse Ox 98% on 50% FiO2 ETT vent; lp1 23:45 BP 86 / 30; Pulse 127; Resp 18; Temp 98.2(C); Pulse Ox 98% on 50% FiO2 ETT vent; lp1 01/29 00:00 BP 90 / 36; Pulse 125; Resp 18; Temp 98.3(C); Pulse Ox 98% on 50% FiO2 ETT vent; lp1 00:10 BP 91 / 41; Pulse 124; Resp 18; Temp 98.3(C); Pulse Ox 98% on ETT vent; lp1 00:20 BP 83 / 35; Pulse 125; Resp 18; Temp 98.3(C); Pulse Ox 98% on 50% FiO2 ETT vent; lp1 00:50 BP 80 / 37; Pulse 129; Resp 18; Temp 98.5(C); Pulse Ox 98% on 50% FiO2 ETT vent; lp1 01:10 BP 83 / 44; Pulse 126; Resp 18; Temp 98.6(C); Pulse Ox 98% on 50% FiO2 ETT vent; lp1 01:30 BP 83 / 37; Pulse 125; Resp 18; Temp 98.6(C); Pulse Ox 98% on 50% FiO2 ETT vent; lp1 01:40 BP 108 / 52; Pulse 125; Resp 18; Temp 98.6(C); Pulse Ox 98% on 50% FiO2 ETT vent; lp1 01:50 BP 100 / 34; Pulse 124; Resp 22; Temp 98.6(C); Pulse Ox 99% on 50% FiO2 ETT vent; lp1 02:00 BP 88 / 35; Pulse 117; Resp 18; Temp 98.5(C); Pulse Ox 96% on 50% FiO2 ETT vent; lp1 02:15 BP 87 / 35; Pulse 117; Resp 18; Temp 98.7(C); Pulse Ox 96% on 50% FiO2 ETT vent; lp1 02:30 BP 96 / 43; Pulse 120; Resp 18; Temp 98.8(C); Pulse Ox 97% on 50% FiO2 ETT vent; lp1 02:50 BP 93 / 39; Pulse 123; Resp 18; Temp 98.8(C); Pulse Ox 96% on 50% FiO2 ETT vent; lp1 03:00 BP 108 / 51; Pulse 122; Resp 18; Temp 98.9(C); Pulse Ox 96% on 50% FiO2 ETT vent; lp1 03:20 BP 113 / 38; Pulse 125; Resp 18; Temp 99.1(C); Pulse Ox 95% on 50% FiO2 ETT vent; lp1 03:40 BP 113 / 39; Pulse 122; Resp 22; Temp 99.2(C); Pulse Ox 94% on 50% FiO2 ETT vent; lp1 04:00 BP 107 / 39; Pulse 121; Resp 18; Temp 99.4(C); Pulse Ox 95% on 50% FiO2 ETT vent; lp1 04:20 BP 109 / 44; Pulse 120; Resp 18; Temp 99.6(C); Pulse Ox 95% on 50% FiO2 ETT vent; lp1 04:40 BP 109 / 41; Pulse 120; Resp 18; Temp 99.7(C); Pulse Ox 95% on 50% FiO2 ETT vent; lp1 05:00 BP 131 / 58; Pulse 124; Resp 18; Temp 99.8(C); Pulse Ox 95% on 50% FiO2 ETT vent; lp1 Custer Coma Score: 01/28 21:55 Eye Response: to pain(2). Verbal Response: incomprehensible(2). Motor Response: lp1 withdraws from pain(4). Total: 8. 01/29 01:34 Eye Response: to pain(2). Verbal Response: incomprehensible(2). Motor Response: jr8 withdraws from pain(4). Total: 8. ED Course: 01/28 22:00 Patient has correct armband on for positive identification. Placed in gown. Bed in low lp1 position. Side rails up X2. cupola operator insulation on. Pulse ox on. NIBP on. 22:00 EKG done, by ED staff, reviewed by Kentrell MENEZES. lp1 22:00 Maintain EMS IV. Dressing intact. Good blood return noted. Site clean \T\ dry. Gauge \T\ lp 1 site: 22g L hand. 22:05 Inserted saline lock: 20 gauge in left antecubital area, using aseptic technique. Blood lp1 collected. 22:09 Patient arrived in ED. am2 22:20 Assisted provider with intubation using 8.0 mm ETT via oral route. ET tube secured at lp1 23cm at the lips. Set up intubation tray. Intubated by Kentrell MENEZES Placement verified by CXR, CO2 detector w/ + color change, auscultating bilateral breath sounds. 22:20 20g to L AC DC'd due to infiltration. lp1 22:23 Kentrell Awad PA is PHCP. jr8 22:23 Josué Beltran MD is Attending Physician. jr8 22:40 NGT: inserted 16 Fr. other oral verified placement of air over stomach, verified return lp1 of gastric contents, Placement verified by X-ray, to intermittent suction. Returned gastric contents. 22:44 Sheldon cath inserted, using sterile technique, 16 Fr., by ED staff, balloon inflated, to lp1 gravity drainage. 22:51 Mendy aSnchez, MICHELLE is Primary Nurse. lp1 22:56 Triage completed. lp1 22:56 Arm band placed on right wrist. lp1 22:58 XRAY Chest (1 view) In Process Unspecified. EDMS 23:15 Safety checks: Items removed: yes. Door open/sign placed on door: yes. Family/friend oe present: no. Sitter present: Yes. 23:30 Safety checks: Items removed: yes. Door open/sign placed on door: yes. Family/friend oe present: no. Sitter present: Yes. 23:35 Inserted saline lock: 20 gauge in right antecubital area, using aseptic technique. lp1 23:45 Safety checks: Items removed: yes. Door open/sign placed on door: yes. Family/friend oe present: yes. Sitter present: Yes. 01/29 00:00 Safety checks: Items removed: yes. Door open/sign placed on door: yes. Family/friend oe present: yes. Sitter present: Yes. 00:15 Safety checks: Items removed: yes. Door open/sign placed on door: yes. Family/friend oe present: yes. Sitter present: Yes. 00:30 Safety checks: Items removed: yes. Door open/sign placed on door: yes. Family/friend oe present: yes. Sitter present: Yes. 00:45 Safety checks: Items removed: yes. Door open/sign placed on door: yes. Family/friend oe present: yes. Sitter present: Yes. 01:00 Safety checks: Items removed: yes. Door open/sign placed on door: yes. Family/friend oe present: yes. Sitter present: Yes. 01:15 Safety checks: Items removed: yes. Door open/sign placed on door: yes. Family/friend oe present: yes. Sitter present: Yes. 01:30 Safety checks: Items removed: yes. Door open/sign placed on door: yes. Family/friend oe present: yes. Sitter present: Yes. 01:45 Safety checks: Items removed: yes. Door open/sign placed on door: yes. Family/friend oe present: yes. Sitter present: Yes. 01:47 Grace Gregorio MD is Hospitalizing Provider. jr8 02:00 Safety checks: Items removed: yes. Door open/sign placed on door: yes. Family/friend oe present: no. Sitter present: Yes. 02:00 Assisted provider with central line placement. Set up central line tray. Triple lumen lp1 line placed in right femoral. Line placed by Kentrell MENEZES Placement verified by blood return, Dressed with Tegaderm, Blood was collected. Was handwashing/sanitizing done immediately prior to procedure? Yes. Was procedure site sterilized? Yes, with Was the site allowed to dry? Yes. During the procedure, did the Practitioner(s) maintain a sterile field? Yes. Were unused ports clamped during insertion? Yes. Was blood aspirated from each lumen? Yes. 02:10 Repeat lab(s) drawn. by ED staff, sent to lab. lp1 02:15 Safety checks: Items removed: no. Reason for not removing items: Door open/sign placed oe on door: yes. Family/friend present: no. Sitter present: Yes. 02:30 Safety checks: Items removed: yes. Door open/sign placed on door: yes. Family/friend oe present: yes. Sitter present: Yes. 02:45 Safety checks: Items removed: yes. Door open/sign placed on door: yes. Family/friend oe present: yes. Sitter present: Yes. 03:00 Safety checks: Items removed: yes. Door open/sign placed on door: yes. Family/friend oe present: yes. Sitter present: Yes. 03:15 Safety checks: Items removed: yes. Door open/sign placed on door: yes. Family/friend oe present: yes. Sitter present: Yes. 03:30 Safety checks: Items removed: yes. Door open/sign placed on door: yes. Family/friend oe present: yes. Sitter present: Yes. 03:45 Safety checks: Items removed: yes. Door open/sign placed on door: yes. Family/friend oe present: yes. Sitter present: Yes. 04:00 Safety checks: Items removed: yes. Door open/sign placed on door: yes. Family/friend oe present: yes. Sitter present: Yes. 04:15 Safety checks: Items removed: yes. Door open/sign placed on door: yes. Family/friend oe present: yes. Sitter present: Yes. 04:30 Safety checks: Items removed: yes. Door open/sign placed on door: yes. Family/friend oe present: yes. Sitter present: Yes. 04:45 Safety checks: Items removed: yes. Door open/sign placed on door: yes. Family/friend oe present: no. Sitter present: Yes. 05:00 Safety checks: Items removed: yes. Door open/sign placed on door: yes. Family/friend oe present: no. Sitter present: Yes. 05:15 Safety checks: Items removed: yes. Door open/sign placed on door: yes. Family/friend oe present: no. Sitter present: Yes. 05:30 Safety checks: Items removed: yes. Door open/sign placed on door: yes. Family/friend oe present: no. Sitter present: Yes. 05:45 Safety checks: Items removed: yes. Door open/sign placed on door: yes. Family/friend oe present: yes. Sitter present: Yes. 06:00 Safety checks: Items removed: yes. Door open/sign placed on door: yes. Family/friend oe present: yes. Sitter present: Yes. 06:15 Safety checks: Items removed: yes. Door open/sign placed on door: yes. Family/friend oe present: yes. Sitter present: Yes. 06:30 Safety checks: Items removed: yes. Door open/sign placed on door: yes. Family/friend oe present: yes. Sitter present: Yes. 06:45 Safety checks: Items removed: yes. Door open/sign placed on door: yes. Family/friend oe present: yes. Sitter present: Yes. 07:00 Safety checks: Items removed: yes. Door open/sign placed on door: yes. Family/friend oe present: yes. Sitter present: Yes. 07:29 Primary Nurse role handed off by Mendy Sanchez RN sg 07:53 Juliana Alcala RN is Primary Nurse. tw2 11:13 Dr Hurtado contacted [facility] in attempt to transfer pt, was denied due to bd no icu beds. 11:15 Dr Hurtado [facility], pt was denied due to no icu beds. bd 11:16 Dr Hurtado attempted transfer to [facility], pt was denied due to no icu beds. bd 15:43 attempted transfer to [facility], pt declined. bd Administered Medications: Discontinued: Propofol 5 mcg/kg/min IV at calculated rate continuous; titrate per protocol (titrate by 5-10mcg/kg/min every 10 min to max rate of 50 mcg/kg/min) 01/28 22:10 Drug: NS 0.9% 1000 ml Route: IV; Rate: 1000 ml; Site: left antecubital; lp1 23:00 Follow up: IV Status: Completed infusion; IV Intake: 1000ml lp1 22:14 Drug: Etomidate 10 mg Route: IVP; Site: left antecubital; lp1 22:20 Follow up: Response: No adverse reaction lp1 22:15 Drug: Rocuronium 100 mg Route: IVP; Site: left antecubital; lp1 22:20 Follow up: Response: No adverse reaction lp1 22:19 Drug: Succinylcholine 100 mg Route: IVP; Site: left hand; lp1 22:20 Follow up: Response: No adverse reaction lp1 22:20 Drug: Propofol 5 mcg/kg/min Route: IV; Rate: calculated rate; Site: left hand; lp1 23:11 Drug: NS 0.9% 1000 ml Route: IV; Rate: 1000 ml; Site: left hand; lp1 01/29 00:00 Follow up: IV Status: Completed infusion; IV Intake: 1000ml lp1 01/28 23:35 Drug: Ativan 2 mg Route: IVP; Site: right antecubital; lp1 01/29 00:30 Follow up: Response: No adverse reaction lp1 00:45 Drug: NS 0.9% 1000 ml Route: IV; Rate: 1000 ml; Site: right antecubital; lp1 02:00 Follow up: IV Status: Completed infusion; IV Intake: 1000ml lp1 02:00 Drug: Ativan 2 mg Route: IVP; Site: left hand; lp1 03:00 Follow up: Response: No adverse reaction lp1 02:29 Drug: NS 0.9% 1000 ml Route: IV; Rate: 125 ml/hr; Site: right femoral; lp1 05:14 Follow up: IV Status: Infusion continued upon admission lp1 02:29 Drug: Levophed (4 mg/250 mL D5W 4 mcg/min Route: IV; Rate: calculated rate; Site: right lp1 femoral; 03:00 Follow up: Rate change 10 mcg/min lp1 05:14 Follow up: IV Status: Infusion continued upon admission lp1 Intake: 01/28 23:00 IV: 1000ml; Total: 1000ml. lp1 0311 00:00 IV: 1000ml; Total: 2000ml. lp1 02:00 IV: 1000ml; Total: 3000ml. lp1 Outcome: 01:48 Decision to Hospitalize by Provider. jr8 02:30 critical lp1 02:30 Instructed on the need for admit. 05:19 Admitted to ER Hold. Please see [facility] for further documentation. lp1 18:12 Patient left the ED. jb1 Signatures: Dispatcher [employer] EDMS Brett Loera jb1 Kary Zhou Steven, RN RN Mendy Mendoza RN RN lp1 Kentrell Awad PA PA jr8 Juliana Alcala RN RN tw2 Ahmet Figueroa Amanda am2 Corrections: (The following items were deleted from the chart) 02:13 02:12 Safety checks: Items removed: yes. Door open/sign placed on door: yes. oe Family/friend present: yes. no. oe 03:20 02:51 General: Appears obese, Behavior is unresponsive. lp1 lp1 04:46 04:07 Safety checks: Items removed: oe oe 06:57 06:49 Safety checks: Items removed: yes. Door open/sign placed on door: yes. oe Family/friend present: yes. Sitter present: Yes. oe 06:57 06:49 Safety checks: Items removed: yes. Door open/sign placed on door: yes. oe Family/friend present: yes. Sitter present: Yes. oe 07:00 06:56 Safety checks: Items removed: yes. Door open/sign placed on door: yes. oe Family/friend present: yes. Sitter present: Yes. oe
[2019-01-29] MEDS ORDERED: LORazepam 2 MG/ML VIAL ONE (02:05)
[2019-01-29] MEDS ORDERED: NOREPINEPHRINE 4mg/D5W 250mL 4 MG/250 ML BAG IV ONE (02:30)
[2019-01-29 02:45] LABS: Potassium 4.6 mmol/L (3.5-5.1)
[2019-01-29] MEDS: NA CHLORIDE 0.9% 1,000 ML IV SCH ×2 (05:10→18:27)
--- NOTE | 2019-01-29 05:15 | P.HP ---
Certification for Inpatient Patient admitted to: Inpatient With expected LOS: >2 Midnights Practitioner: I am a practitioner with admitting privileges, knowledge of patient current condition, hospital course, and medical plan of care. Services: Services provided to patient in accordance with Admission requirements found in Title 42 Section 412.3 of the Code of Federal Regulations Patient History Date of Service: 01/29/19 Reason for admission: suicidal attemtp History of Present Illness: Mr Frias is a 23 years old male with history of depression, previous suicidal attempt, who was righting suicidal notes in social media, and text messages yesterday. Apparently he took unknown amount and kind of pills, possible Nyquil. He become lethargic and sleepy. Family called 911. He gradually become more unresponsive, at arrival to ED his respiratory rate was very slow, O2 Sat mid 80's, hypotensive. It was decided to intubate the patient. Toxicology was positive for opiates, PCP, and acetaminophen. Allergies No Known Allergie Allergy (Uncoded 06/14/16 01:48) Unknown Home Medications: NK [No Home Meds] 01/29/19 - Past Medical/Surgical History Has patient received pneumonia vaccine in the past: Yes -: suicidal attempt -: depression Past Surgical History: Reviewed- Non-Contributory - Family History Family History: Reviewed- Non-Contributory - Social History Smoking Status: Unknown if ever smoked Place of Residence: Home Review of Systems is unable to be obtained Physical Examination - Physical Exam General: In no apparent distress, Unresponsive HEENT: Atraumatic, Mucous membr. moist/pink, Sclerae nonicteric Neck: Supple, 2+ carotid pulse no bruit, No LAD, Without JVD or thyroid abnormality Respiratory: Normal air movement, Crackles/rales (bibasilar crackles) Cardiovascular: Regular rate/rhythm, Normal S1 S2 Gastrointestinal: Normal bowel sounds, No tenderness Musculoskeletal: No tenderness Integumentary: No rashes Neurological: Normal strength at 5/5 x4 extr, Sensation intact, Abnormal affect Lymphatics: No axilla or inguinal lymphadenopathy - Studies Laboratory Data (last 24 hrs) 01/29/19 02:10: Sodium 140, Potassium 4.6, BUN 12, Creatinine 1.02, Glucose 106 01/28/19 22:05: PT 12.1, INR 1.03, APTT 29.9 01/28/19 22:05: WBC 24.5 H*, Hgb 18.8 H, Hct 55.2 H, Plt Count 229 01/28/19 22:05: Sodium 137, Potassium 4.1, BUN 15, Creatinine 1.41 H, Glucose 124 H, Total Bilirubin 0.4, AST 21, ALT 39, Alkaline Phosphatase 88 Assessment and Plan - Problems (Diagnosis) (1) Suicide attempt Current Visit: Yes Status: Acute (2) Drug overdose Current Visit: Yes Status: Acute Qualifiers: Encounter type: initial encounter Injury intent: intentional self-harm Qualified Code(s): T50.902A - Poisoning by unspecified drugs, medicaments and biological substances, intentional self-harm, initial encounter (3) Depression Current Visit: Yes Status: Acute Qualifiers: Depression Type: major depressive disorder Major depression recurrence: recurrent Active/Remission status: currently active Major depression episode severity: severe Psychotic features: with psychotic features Qualified Code(s): F33.3 - Major depressive disorder, recurrent, severe with psychotic symptoms - Plan The patient will be admitted to ICU, continue ventilator support, BP low despite several NS liters bolus, will initiate vasopressors if needed. Order empiric antibiotic, for possible aspiration pneumonia, check APAP level q4hrs. Continue vital support. - Advance Directives Does patient have a Living Will: No Does patient have a Durable POA for Healthcare: No - Code Status/Comfort Care Code Status Assessed: Yes Code Status: Full Code
[2019-01-29 05:38] LABS: Blood Gas Oxyhemoglobin 93.3 % (94-97); Blood O2 Saturation 96.3 % (92-98.5)
[2019-01-29] MEDS ORDERED: NOREPINEPHRINE 4 MG in D5W 250 ML IV PRN (05:45)
[2019-01-29] MEDS ORDERED: PIPER/TAZO/NS 3.375gm 3.375 GM/100 ML BAG ONE ×2 (06:34→12:32)
[2019-01-29] MEDS: PIPER/TAZO/NS 3.375gm 3.375 GM/100 ML BAG IVPB SCH ×4 (06:38→20:08)
[2019-01-29] MEDS ORDERED: ACETAMINOPHEN 500 MG TAB PO ONE (08:03)
--- NOTE | 2019-01-29 08:12 | RAD REPORT ---
EXAM DESCRIPTION: RAD - Chest Single View - 01/28/2019 10:57 pm CLINICAL HISTORY: post intubation Chest pain. COMPARISON: Chest Single View dated 05/15/2017; CHEST PA AND LAT 2 VIEW dated 12/10/2011 FINDINGS: Portable technique limits examination quality. Tip of the ET tube is above the dipesh. Enteric tube descends in the stomach. Mild interstitial pulmo nary edema suspected. The heart is normal in size. No displaced fractures.
--- NOTE | 2019-01-29 08:34 | EKG ---
Test Date: 2019-01-28 Test Time: 21:06:39 Farm Loan Inspector: SHAYY MEASUREMENT RESULTS: Intervals: Rate: 134 MT: 150 QRSD: 96 QT: 280 QTc: 418 [place]: P: 52 MT: 150 QRS: 24 T: 43 INTERPRETIVE STATEMENTS: Sinus tachycardia Otherwise normal ECG Compared to ECG 05/15/2017 00:13:33 Sinus rhythm no longer present Sinus arrhythmia no longer present Electronically Signed On 01-29-19 08:33:29 CDT by Francesco Knight
[2019-01-29] MEDS ORDERED: ENOXAPARIN 40 MG/0.4 ML SQ ONE (09:05)
[2019-01-29] MEDS ORDERED: ACETYLCYST 6,000 MG/30 ML VIAL PO ONE (09:23)
[2019-01-29] MEDS: ENOXAPARIN 40 MG/0.4 ML SQ SCH (09:25)
[2019-01-29] MEDS ORDERED: ACETYLCYST 6,000 MG/30 ML VIAL ONE (09:53)
[2019-01-29] MEDS ORDERED: NA CHLORIDE 0.9% 1,000 ML IV ONE (10:32)
[2019-01-29 10:49] LABS: Absolute Lymphocytes (CBC) 1.7 K/uL (0.7-4.9); Absolute Monocytes 1.2 K/uL (0.1-1.3); Absolute Neutrophil 18.5 K/uL (1.8-8.0); Eosinophils % 0.5 % (0-4.4); Hematocrit 47.7 % (39.6-49.0); Lymphocytes % 7.9 % (15.3-44.8); MPV 8.5 fL (7.6-11.3); Monocytes % 5.4 % (3.3-12.3); RBC Red Blood Cell Count 5.18 M/uL (4.33-5.43)
[2019-01-29 10:51] LABS: ALT/SGPT 29 U/L (12-78); AST/SGOT 26 U/L (15-37); Alkaline Phosphatase 67 U/L (45-117); BUN Blood Urea Nitrogen 9 mg/dL (7-18); Bicarbonate 25 mmol/L (21-32); Bilirubin Total 0.7 mg/dL (0.2-1.0); CKMB Creatine Kinase MB 2.7 ng/mL (0.3-3.6); Creatine Phosphokinase 858 U/L (39-308); Glucose Level 114 mg/dL (74-106); Potassium 3.6 mmol/L (3.5-5.1); Protein, Total 6.2 g/dL (6.4-8.2); Sodium Level 139 mmol/L (136-145)
[2019-01-29] MEDS ORDERED: VASOPRESSIN 80 UNIT in NA CHLORIDE 0.9% 250 ML IV PRN (12:05)
[2019-01-29] MEDS ORDERED: ACETYLCYST 6,000 MG/30 ML VIAL PO SCH ×2 (12:30→14:00)
[2019-01-29] MEDS ORDERED: D5W IV ONE ×2 (13:00→18:00)
[2019-01-29] MEDS ORDERED: ACETYLCYSTEINE IV ONE ×3 (13:00→18:00)
[2019-01-29] MEDS: VANCOMYCIN 2 GM in NA CHLORIDE 0.9% 500 ML IVPB SCH (13:40)
--- NOTE | 2019-01-29 13:48 | ECHO ---
HEIGHT: 5 ft 10 in WEIGHT: 240 lb 0 oz DATE OF STUDY: 01/29/[address]: Vdiya Garcia MD 2-DIMENSIONAL: YES M.MODE: YES DOPPLER: YES COLOR FLOW: YES TDS: NO PORTABLE: NO DEFINITY: NO BUBBLE STUDY: NO DIAGNOSIS: TACHYCARDIA, TOXIC INGESTION. CARDIAC HISTORY: CATHERIZATION: NO SURGERY: NO PROSTHETIC VALVE: NO PACEMAKER: NO MEASUREMENTS (cm) DIASTOLIC (NORMALS) SYSTOLIC (NORMALS) IVSd 1.0 (0.6-1.2) LA Diam 2.8 (1.9-4.0) LVEF >75% LVIDd 4.4 (3.5-5.7) LVIDs 2.7 (2.0-3.5) %FS 38% LVPWd 0.9 (0.6-1.2) Ao Diam 2.7 (2.0-3.7) 2 DIMENSIONAL ASSESSMENT: RIGHT ATRIUM: NORMAL LEFT ATRIUM: NORMAL RIGHT VENTRICLE: NORMAL LEFT VENTRICLE: NORMAL TRICUSPID VALVE: NORMAL MITRAL VALVE: NORMAL PULMONIC VALVE: NORMAL AORTIC VALVE: NORMAL PERICARDIAL EFFUSION: NONE AORTIC ROOT: NORMAL LEFT VENTRICULAR WALL MOTION: HYPERDYNAMIC. DOPPLER/COLOR FLOW: PHYSIOLOGIC TRICUSPID REGURGITATION. NORMAL RIGHT VENTRICULAR SYSTOLIC PRESSURE. COMMENTS: HYPERDYNAMIC LEFT VENTRICULAR. SINUS TACHYCARDIA 130 BEATS PER MINUTE. OTHERWISE NORMAL 2D ECHOCARDIOGRAM WITH DOPPLER. TECHNOLOGIST: WIL FERRERA
[2019-01-29] MEDS ORDERED: DEXTROSE 5% IV ONE (14:00)
[2019-01-29] MEDS ORDERED: WATER IV ONE (14:00)
[2019-01-29] MEDS ORDERED: SUCCINYLCHOLINE 20 MG/ML (10 ML) IV ONE (14:05)
[2019-01-29] MEDS ORDERED: ETOMIDATE 20 MG/10 ML VIAL IV ONE (14:05)
[2019-01-29 16:32] LABS: Absolute Lymphocytes (CBC) 0.6 K/uL (0.7-4.9); Absolute Monocytes 0.6 K/uL (0.1-1.3); Absolute Neutrophil 19.2 K/uL (1.8-8.0); Basophils % 0.1 % (0-1.3); Eosinophils % 0.3 % (0-4.4); Hematocrit 46.2 % (39.6-49.0); Lymphocytes % 3.1 % (15.3-44.8); MPV 8.3 fL (7.6-11.3); Monocytes % 2.9 % (3.3-12.3); RBC Red Blood Cell Count 4.97 M/uL (4.33-5.43)
[2019-01-29 16:59] LABS: ALT/SGPT 31 U/L (12-78); AST/SGOT 28 U/L (15-37); Albumin 2.5 g/dL (3.4-5.0); Alkaline Phosphatase 50 U/L (45-117); BUN Blood Urea Nitrogen 7 mg/dL (7-18); Bicarbonate 24 mmol/L (21-32); Bilirubin Total 0.7 mg/dL (0.2-1.0); CKMB Creatine Kinase MB 5.6 ng/mL (0.3-3.6); Creatine Phosphokinase 832 U/L (39-308); Glucose Level 185 mg/dL (74-106); Magnesium 1.5 mg/dL (1.8-2.4); Potassium 3.7 mmol/L (3.5-5.1); Protein, Total 5.5 g/dL (6.4-8.2); Sodium Level 140 mmol/L (136-145)
[2019-01-29 17:05] LABS: Phosphorus 0.8 mg/dL (2.5-4.9)
[2019-01-29] MEDS ORDERED: NOREPINEPHRINE 8 MG in Dextrose 5%-Water 500 ML IV PRN (17:47)
[2019-01-29] MEDS: PANTOPRAZOLE 40 MG INJ IVP SCH (20:08)
[2019-01-29 21:21] LABS: Absolute Lymphocytes (CBC) 1.2 K/uL (0.7-4.9); Absolute Monocytes 1.5 K/uL (0.1-1.3); Absolute Neutrophil 23.6 K/uL (1.8-8.0); Basophils % 0.1 % (0-1.3); Eosinophils % 0.2 % (0-4.4); Hematocrit 44.4 % (39.6-49.0); Lymphocytes % 4.5 % (15.3-44.8); MPV 8.3 fL (7.6-11.3); Monocytes % 5.7 % (3.3-12.3); RBC Red Blood Cell Count 4.79 M/uL (4.33-5.43)
[2019-01-29 21:36] LABS: ALT/SGPT 28 U/L (12-78); AST/SGOT 27 U/L (15-37); Albumin 2.5 g/dL (3.4-5.0); Alkaline Phosphatase 53 U/L (45-117); BUN Blood Urea Nitrogen 6 mg/dL (7-18); Bicarbonate 26 mmol/L (21-32); Bilirubin Total 0.6 mg/dL (0.2-1.0); CKMB Creatine Kinase MB 5.1 ng/mL (0.3-3.6); Creatine Phosphokinase 805 U/L (39-308); Glucose Level 109 mg/dL (74-106); Magnesium 1.6 mg/dL (1.8-2.4); Phosphorus 1.9 mg/dL (2.5-4.9); Potassium 3.6 mmol/L (3.5-5.1); Protein, Total 5.4 g/dL (6.4-8.2); Sodium Level 141 mmol/L (136-145)
[2019-01-29 21:58] LABS: Blood Morphology Comment NOT SEEN (NOT SEEN); Platelet Estimate DECR
[2019-01-29 22:06] LABS: Blood Morphology Comment NOT SEEN (NOT SEEN); Platelet Estimate DECR
[2019-01-30] MEDS: VANCOMYCIN 2 GM in NA CHLORIDE 0.9% 500 ML IVPB SCH ×2 (00:49→12:39)
[2019-01-30] MEDS: NA CHLORIDE 0.9% 1,000 ML IV SCH ×2 (01:10→08:40)
[2019-01-30 02:56] LABS: Absolute Lymphocytes (CBC) 1.2 K/uL (0.7-4.9); Absolute Monocytes 1.2 K/uL (0.1-1.3); Absolute Neutrophil 15.9 K/uL (1.8-8.0); Basophils % 0.2 % (0-1.3); Eosinophils % 1.2 % (0-4.4); Hematocrit 42.4 % (39.6-49.0); Lymphocytes % 6.6 % (15.3-44.8); MPV 8.3 fL (7.6-11.3); Monocytes % 6.4 % (3.3-12.3); RBC Red Blood Cell Count 4.64 M/uL (4.33-5.43)
[2019-01-30 03:08] LABS: ALT/SGPT 25 U/L (12-78); AST/SGOT 23 U/L (15-37); Albumin 2.2 g/dL (3.4-5.0); Alkaline Phosphatase 50 U/L (45-117); BUN Blood Urea Nitrogen 5 mg/dL (7-18); Bicarbonate 27 mmol/L (21-32); Bilirubin Total 0.5 mg/dL (0.2-1.0); CKMB Creatine Kinase MB 4.1 ng/mL (0.3-3.6); Creatine Phosphokinase 625 U/L (39-308); Glucose Level 114 mg/dL (74-106); Magnesium 1.7 mg/dL (1.8-2.4); Phosphorus 2.2 mg/dL (2.5-4.9); Potassium 3.4 mmol/L (3.5-5.1); Protein, Total 5.1 g/dL (6.4-8.2); Sodium Level 142 mmol/L (136-145)
[2019-01-30] MEDS ORDERED: MAGNESIUM SULFATE 1 gm IVPB 1 GM/100 ML BAG IV ONE (03:25)
[2019-01-30] MEDS: KCL 20 MEQ/100 mL IVPB 20 MEQ/100 ML BAG IV SCH ×2 (03:56→05:36)
[2019-01-30] MEDS: PIPER/TAZO/NS 3.375gm 3.375 GM/100 ML BAG IVPB SCH ×3 (03:56→20:45)
[2019-01-30 05:22] LABS: Absolute Lymphocytes (CBC) 1.2 K/uL (0.7-4.9); Absolute Monocytes 0.9 K/uL (0.1-1.3); Absolute Neutrophil 14.4 K/uL (1.8-8.0); Basophils % 0.2 % (0-1.3); Eosinophils % 1.6 % (0-4.4); Lymphocytes % 7.1 % (15.3-44.8); MPV 8.2 fL (7.6-11.3); Monocytes % 5.3 % (3.3-12.3); RBC Red Blood Cell Count 4.69 M/uL (4.33-5.43)
[2019-01-30 05:41] LABS: ALT/SGPT 23 U/L (12-78); AST/SGOT 25 U/L (15-37); Albumin 2.2 g/dL (3.4-5.0); Alkaline Phosphatase 54 U/L (45-117); BUN Blood Urea Nitrogen 5 mg/dL (7-18); Bicarbonate 26 mmol/L (21-32); Bilirubin Total 0.5 mg/dL (0.2-1.0); Glucose Level 102 mg/dL (74-106); Potassium 3.4 mmol/L (3.5-5.1); Protein, Total 5.1 g/dL (6.4-8.2); Sodium Level 142 mmol/L (136-145)
[2019-01-30] MEDS: ENOXAPARIN 40 MG/0.4 ML SQ SCH (08:39)
[2019-01-30] MEDS: PANTOPRAZOLE 40 MG INJ IVP SCH ×2 (08:41→20:45)
[2019-01-30 08:53] LABS: Absolute Lymphocytes (CBC) 0.9 K/uL (0.7-4.9); Absolute Monocytes 0.8 K/uL (0.1-1.3); Absolute Neutrophil 13.5 K/uL (1.8-8.0); Basophils % 0.1 % (0-1.3); Eosinophils % 1.8 % (0-4.4); Hematocrit 41.6 % (39.6-49.0); Lymphocytes % 5.9 % (15.3-44.8); MPV 8.3 fL (7.6-11.3); Monocytes % 5.3 % (3.3-12.3)
[2019-01-30 09:11] LABS: ALT/SGPT 22 U/L (12-78); AST/SGOT 24 U/L (15-37); Albumin 2.2 g/dL (3.4-5.0); Alkaline Phosphatase 55 U/L (45-117); BUN Blood Urea Nitrogen 5 mg/dL (7-18); Bicarbonate 28 mmol/L (21-32); Bilirubin Total 0.5 mg/dL (0.2-1.0); CKMB Creatine Kinase MB 3.5 ng/mL (0.3-3.6); Creatine Phosphokinase 574 U/L (39-308); Glucose Level 96 mg/dL (74-106); Magnesium 2.1 mg/dL (1.8-2.4); Phosphorus 1.6 mg/dL (2.5-4.9); Potassium 3.6 mmol/L (3.5-5.1); Protein, Total 5.2 g/dL (6.4-8.2); Sodium Level 142 mmol/L (136-145)
[2019-01-30] MEDS ORDERED: HALOPERIDOL LACT 5 MG/ML INJ IV ONE (09:33)
[2019-01-30] MEDS ORDERED: ZIPRASIDONE MESYLA 20 MG/VIAL IM ONE (09:34)
[2019-01-30] MEDS ORDERED: WATER FOR INJ,STERILE 10 ML IM PRN (09:34)
[2019-01-30] MEDS ORDERED: HALOPERIDOL LACT 5 MG/ML INJ ONE (09:47)
--- NOTE | 2019-01-30 10:11 | RAD REPORT ---
EXAM DESCRIPTION: RAD - Chest Single View - 01/30/2019 10:05 am CLINICAL HISTORY: Hypoxia Chest pain. COMPARISON: Chest Single View dated 01/28/2019; Chest Single View dated 05/15/2017; CHEST PA AND LAT 2 VIEW dated 12/10/2011 FINDINGS: Portable technique limits examination quality. Small opacity is seen in the medial right lower lung, likely representing an area of aspiration or in filtrate. The heart is normal in size. Tip of the ET tube is above the dipesh. Enteric tube descends in the stomach.
[2019-01-30 10:32] LABS: Arterial Blood Carboxyhemoglob 1.2 % (0-1.5); Blood Gas Oxyhemoglobin 85.7 % (94-97); Blood O2 Saturation 87.4 % (92-98.5)
[2019-01-30] MEDS ORDERED: POTASSIUM PHOS IN 0.9 % NACL 15 MMOL/250 ML BAG IV ONE ×2 (11:12→17:36)
[2019-01-30] MEDS ORDERED: KCL 20 MEQ/100 mL IVPB 20 MEQ/100 ML BAG IV SCH ×2 (12:00→18:00)
--- NOTE | 2019-01-30 14:27 | RAD REPORT ---
EXAM DESCRIPTION: CT - Chest For Pe Angio - 01/30/2019 2:11 pm CLINICAL HISTORY: Shortness of breath, recent intubation COMPARISON: January 30 TECHNIQUE: Dynamically enhanced 3 mm thick images of the chest were obtained during administration o f approximately 150mL Isovue 370 IV contrast. Coronal and oblique MIP reconstruction images were gene rated and reviewed. Exam utilizes a protocol to evaluate the pulmonary arterial tree. All CT scans are performed using dose optimization technique as appropriate and may include automated exposure control or mA/KV adjustment according to patient size. FINDINGS: No pulmonary emboli are identified. The aorta as imaged shows no acute or suspicious finding. No pericardial thickening or effusion. A few scattered ground-glass opacities are present in the left upper and left lower lobes. Posterior gutter atelectasis changes are present. Patient has a more prominent airspace opacification pattern i n the right lower lobe felt to be greater than simple atelectasis. Trace amounts of alveolar opacific ation are present in the right upper lobe. No endobronchial lesion identified. No pleural effusion or pleural thickening. No mediastinal or hilar suspicious masses. No chest wall masses or abnormal axillary lymphadenopathy. IMPRESSION: No pulmonary emboli identified. Right lower lobe airspace opacification favored to be a mild pneumonia rather than simple atelectasis . A few scattered areas of airspace opacification are scattered in the remaining lung baker.
[2019-01-30] MEDS: THIAMINE 200 MG/2 ML INJ IVP SCH (14:38)
[2019-01-30 14:54] LABS: Absolute Monocytes 0.8 K/uL (0.1-1.3); Absolute Neutrophil 12.7 K/uL (1.8-8.0); Basophils % 0.2 % (0-1.3); Eosinophils % 1.6 % (0-4.4); Hematocrit 41.1 % (39.6-49.0); Lymphocytes % 6.9 % (15.3-44.8); MPV 8.9 fL (7.6-11.3); Monocytes % 5.4 % (3.3-12.3); RBC Red Blood Cell Count 4.49 M/uL (4.33-5.43)
[2019-01-30 15:06] LABS: ALT/SGPT 23 U/L (12-78); AST/SGOT 28 U/L (15-37); Albumin 2.3 g/dL (3.4-5.0); Alkaline Phosphatase 53 U/L (45-117); BUN Blood Urea Nitrogen 5 mg/dL (7-18); Bicarbonate 29 mmol/L (21-32); Bilirubin Total 0.4 mg/dL (0.2-1.0); Glucose Level 91 mg/dL (74-106); Magnesium 2.1 mg/dL (1.8-2.4); Phosphorus 1.5 mg/dL (2.5-4.9); Potassium 3.6 mmol/L (3.5-5.1); Protein, Total 5.3 g/dL (6.4-8.2); Sodium Level 142 mmol/L (136-145)
--- NOTE | 2019-01-30 16:18 | P.PN ---
Subjective Date of Service: 01/30/19 Chief Complaint: suicidal attemtp pt seen and examined at bedside with RN. Chart Reviewed. Case DW with Family at bedside and Nursing at bedside. Currently Pt is extubated now and saturating well. Pt was combative in AM and was given Haldol. Improved after. No other c/o night. Limit visitation hours to reduce stimulation when he was intubated. Review of Systems 10-point ROS is otherwise unremarkable Physical Examination - Vital Signs Temperature: 97.5 F Blood Pressure: 107/67 Pulse: 111 Respirations: 14 Pulse Ox (%): 96 - Physical Exam General: In no apparent distress, Obese, Other (sedated and now Extubated ) HEENT: Atraumatic, PERRLA, EOMI Neck: Supple, JVD not distended Respiratory: Normal air movement, Crackles/rales, Expiratory wheezes, Inspiratory wheezes Cardiovascular: Regular rate/rhythm, Normal S1 S2 Gastrointestinal: Normal bowel sounds, No tenderness Musculoskeletal: No tenderness Integumentary: No rashes Neurological: Normal tone, Normal affect Lymphatics: No axilla or inguinal lymphadenopathy - Studies Medications List Reviewed: Yes Assessment And Plan - Current Problems (Diagnosis) (1) Acute respiratory distress Current Visit: Yes Status: Acute Plan: Acute respiratory Distress 2.2 to Drug Overdose vs aspiration PNA -Now Extubated and sedated. on NC saturating Well -IV abx for aspiration PNA -Sputum Culture pending at this time. (2) Sepsis Current Visit: Yes Status: Acute Plan: Sepsis 2.2 to aspiration PNA. -elevated WBC and procal -IV zosyn and vanc. Will continue till sputum culture Qualifiers: Sepsis type: sepsis due to unspecified organism Qualified Code(s): A41.9 - Sepsis, unspecified organism (3) PNA (pneumonia) Current Visit: Yes Status: Acute Plan: See # 1 Qualifiers: Pneumonia type: aspiration pneumonia Aspiration pneumonia type: due to vomit Laterality: unspecified laterality Lung location: unspecified part of lung Qualified Code(s): J69.0 - Pneumonitis due to inhalation of food and vomit (4) Drug overdose Current Visit: Yes Status: Acute Plan: Unknown Drug overdose. Presumed Tylenol#3, [place], Nyquil -UDS + for PCP, opiates, Tylenol -IV fluids for now -Poison controlled called and reccs to monitor with LFT's, continues tele and CMP q6h -No GI avail to consult, However currently stable LFT's Qualifiers: Encounter type: initial encounter Injury intent: intentional self-harm Qualified Code(s): T50.902A - Poisoning by unspecified drugs, medicaments and biological substances, intentional self-harm, initial encounter (5) Suicide attempt Current Visit: Yes Status: Acute Discharge Plan: Other Plan to discharge in: Greater than 2 days - Code Status/Comfort Care Code Status Assessed: Yes Critical Care: Yes
--- NOTE | 2019-01-30 16:26 | P.CNS ---
Date of Consult: 01/30/19 Chief Complaint: Ventilator management History of Present Illness: Patient is 23 years of age with a history of depression and suicidal attempts currently he takes the medications was found lethargic sleepy low sats hypotensive was intubated transferred here to the ICU mental ill hypoxic and was later extubated he is currently alert responsive cooperative still a little lethargic r Allergies No Known Allergies Allergy (Unverified 01/29/19 08:14) Home Medications: NK [No Home Meds] 01/29/19 - Past Medical/Surgical History Diabetic: No -: suicidal attempt -: depression - Family History Father History Unknown: Yes Mother History Unknown: Yes - Social History Smoking Status: Unknown if ever smoked Place of Residence: Home Review of Systems General: Weakness Respiratory: Shortness of Breath Physical Examination Temp Pulse Resp BP Pulse Ox 97.5 F 111 H 14 107/67 96 01/30/19 16:24 01/30/19 16:24 01/30/19 16:24 01/30/19 16:24 01/30/19 16:24 General: Alert, Cooperative Neck: Supple Respiratory: Clear to auscultation bilaterally Cardiovascular: No edema, Regular rate/rhythm - Problems (1) Respiratory failure Current Visit: Yes Status: Acute Plan: Patient is 23 years of age admitted after a suicidal attempt he had to be intubated CT scan shows some right lung pneumonia no evidence of thromboembolism continue with Zosyn Dc vancomycin labs reviewed white count is declining chemistries unremarkable tox screen was positive for multiple drugs including Tylenol patient was given some Mucomyst his vital signs are stable cultures are all negative can change to p.o. Augmentin once eating and drinking is probably aspirated no evidence of liver damage
--- NOTE | 2019-01-30 20:22 | RAD REPORT ---
EXAM DESCRIPTION: CT - Head Brain Wo Cont - 01/30/2019 8:15 pm CLINICAL HISTORY: AMS Headache, drowsiness COMPARISON: CTFACIAL BONES W MPR dated 06/30/2013; HEAD BRAIN W O CONTRAST dated 06/30/2013 TECHNIQUE: All CT scans are performed using dose optimization technique as appropriate and may inclu de automated exposure control or mA/KV adjustment according to patient size. FINDINGS: No intracranial hemorrhage, hydrocephalus or extra-axial fluid collection.No areas of brai n edema or evidence of midline shift. The paranasal sinuses and mastoids are clear. The calvarium is intact. IMPRESSION: No acute intracranial abnormality.
--- NOTE | 2019-01-30 20:41 | RAD REPORT ---
EXAM DESCRIPTION: - CP - 01/30/2019 8:35 pm CLINICAL HISTORY: AMS Headache, drowsiness COMPARISON: No comparisons TECHNIQUE: Real-time sonographic evaluation of both carotid systems was performed. Doppler interroga tion was performed with waveform tracing bilaterally. FINDINGS: Normal high resistance waveforms are noted in both external carotid arteries. The common c arotid arteries and internal carotid arteries show normal low resistance waveforms. No significant plaque formation is seen. Peak systolic and end diastolic velocity values and the ICA/ CCA ratios are in the non-hemodynamically significant range. Antegrade flow seen in both vertebral arteries. IMPRESSION: No significant atherosclerotic changes noted. No evidence of a hemodynamically significant stenosis.
[2019-01-31] MEDS: VANCOMYCIN 2 GM in NA CHLORIDE 0.9% 500 ML IVPB SCH (01:35)
[2019-01-31] MEDS: PIPER/TAZO/NS 3.375gm 3.375 GM/100 ML BAG IVPB SCH (04:16)
[2019-01-31 04:48] LABS: Absolute Lymphocytes (CBC) 1.2 K/uL (0.7-4.9); Absolute Monocytes 0.7 K/uL (0.1-1.3); Absolute Neutrophil 8.6 K/uL (1.8-8.0); Basophils % 0.2 % (0-1.3); Eosinophils % 2.9 % (0-4.4); MPV 8.4 fL (7.6-11.3); Monocytes % 6.3 % (3.3-12.3); RBC Red Blood Cell Count 4.43 M/uL (4.33-5.43)
[2019-01-31 05:08] LABS: ALT/SGPT 26 U/L (12-78); AST/SGOT 33 U/L (15-37); Albumin 2.5 g/dL (3.4-5.0); Alkaline Phosphatase 54 U/L (45-117); BUN Blood Urea Nitrogen 6 mg/dL (7-18); Bicarbonate 29 mmol/L (21-32); Bilirubin Total 0.3 mg/dL (0.2-1.0); Glucose Level 102 mg/dL (74-106); Magnesium 2.2 mg/dL (1.8-2.4); Phosphorus 1.6 mg/dL (2.5-4.9); Potassium 3.5 mmol/L (3.5-5.1); Protein, Total 5.7 g/dL (6.4-8.2); Sodium Level 145 mmol/L (136-145)
[2019-01-31] MEDS ORDERED: POTASSIUM PHOS IN 0.9 % NACL 15 MMOL/250 ML BAG IV ONE (05:15)
[2019-01-31] MEDS: ENOXAPARIN 40 MG/0.4 ML SQ SCH (08:40)
[2019-01-31] MEDS: PANTOPRAZOLE 40 MG INJ IVP SCH ×2 (08:40→20:43)
[2019-01-31] MEDS: THIAMINE 200 MG/2 ML INJ IVP SCH (08:40)
--- NOTE | 2019-01-31 11:11 | RAD REPORT ---
EXAM DESCRIPTION: RAD - Chest Single View - 01/31/2019 10:40 am CLINICAL HISTORY: pneumonia Chest pain. COMPARISON: Chest Single View dated 01/30/2019; Chest Single View dated 01/28/2019; Chest Single View dated 05/15/2017; CHEST PA AND LAT 2 VIEW dated 12/10/2011 FINDINGS: Portable technique limits examination quality. Mild improvement is seen in the bilateral pulmonary opacities since the comparative study. The patien t has been extubated. The nasogastric tube is been removed. The heart is normal in size. No displaced fractures. IMPRESSION: Mild improvement in lung aeration since comparative study.
--- NOTE | 2019-01-31 15:59 | CON ---
History Of Present Illness: Mr. Frias is in the hospital because of a suicide attempt using multiple drugs including amitriptyline, several benzodiazepines, several medications containing Tylenol and s everal narcotics. He required intubation. He has now been extubated. He is alert, oriented, and se ems to be doing well. He received acetylcysteine and seems to have normal Tylenol level, seems to be getting better. His liver functions test do not indicate at this point that he has hepatotoxicity. I am asked to see him because of sinus tachycardia. The patient normally does not have any health p roblems at all regarding blood pressure, heart, or diabetes. He has depression and suicidal ideation and I do not think this is his first suicide attempt. Allergies: HE HAS NO KNOWN ALLERGIES. Social History: Does not use tobacco. Not having chest pain. Physical Examination: Vital Signs: Blood pressure is 122/72, respirations 20, heart rate 118. He is 5 feet 10 inches, 239 pounds. General: Alert and oriented. Lungs: Clear. Cardiac: Exam normal. No carotid bruit. Normal distal pulses. Impression: His sinus tachycardia is the result of his heart being driven by amitriptyline and what other drugs we are not sure. There was some mention there may have been PCP, but I do not recommend giving him a beta-rey. His phencyclidine screen was positive as well as opiate screen. Acetamin ophen levels, the highest was 9.3, so very likely he will recover from this. I do not recommend jorge maciel a beta-rey or do any other specific medicines unless his tachycardia actually gives him problems angulo ch as low blood pressure and dyspnea. SH/MODL Voice ID: [id number] Report ID: [id number]
--- NOTE | 2019-01-31 16:33 | P.PN ---
Subjective Date of Service: 01/31/19 Chief Complaint: Ventilator management pt seen and examined at bedside with RN. Chart Reviewed. Case DW with Family at bedside and Nursing at bedside. Currently Pt is extubated now and saturating well. Doing well overall. Awaiting Inpt Psyc bed Review of Systems 10-point ROS is otherwise unremarkable Physical Examination - Vital Signs Temperature: 98.8 F Blood Pressure: 130/81 Pulse: 122 Respirations: 23 Pulse Ox (%): 96 - Physical Exam General: Alert, In no apparent distress HEENT: Atraumatic, PERRLA, EOMI Neck: Supple, JVD not distended Respiratory: Clear to auscultation bilaterally, Normal air movement Cardiovascular: Regular rate/rhythm, Normal S1 S2 Gastrointestinal: Normal bowel sounds, No tenderness Musculoskeletal: No tenderness Integumentary: No rashes Neurological: Normal speech, Normal tone, Normal affect Lymphatics: No axilla or inguinal lymphadenopathy - Studies Medications List Reviewed: Yes Assessment And Plan - Current Problems (Diagnosis) (1) Acute respiratory distress Current Visit: Yes Status: Acute Plan: Acute respiratory Distress 2.2 to Drug Overdose vs aspiration PNA -Now Extubated and sedated. on NC saturating Well -Resolved now -PO Abx for aspiration PNA (2) Sepsis Current Visit: Yes Status: Acute Plan: Sepsis 2.2 to aspiration PNA. -Resolve now. -Culture negative thus far -PO abx for aspiration PNA Qualifiers: Sepsis type: sepsis due to unspecified organism Qualified Code(s): A41.9 - Sepsis, unspecified organism (3) PNA (pneumonia) Current Visit: Yes Status: Acute Plan: See # 1 Qualifiers: Pneumonia type: aspiration pneumonia Aspiration pneumonia type: due to vomit Laterality: unspecified laterality Lung location: unspecified part of lung Qualified Code(s): J69.0 - Pneumonitis due to inhalation of food and vomit (4) Drug overdose Current Visit: Yes Status: Acute Plan: Unknown Drug overdose. Presumed Tylenol#3, [place], Nyquil -UDS + for PCP, opiates, Tylenol -IV fluids for now -Poison controlled called and reccs to monitor with LFT's, continues tele and CMP q6h -WNL now Qualifiers: Encounter type: initial encounter Injury intent: intentional self-harm Qualified Code(s): T50.902A - Poisoning by unspecified drugs, medicaments and biological substances, intentional self-harm, initial encounter (5) Suicide attempt Current Visit: Yes Status: Acute Plan: Not sucidal At this time -Awaiting Inpt Psyc bed Discharge Plan: Other Plan to discharge in: Greater than 2 days - Code Status/Comfort Care Code Status Assessed: Yes Critical Care: No
[2019-01-31] MEDS: AMOX/K CLAV 875 MG TAB PO SCH (20:44)
[2019-02-01 05:36] LABS: Absolute Lymphocytes (CBC) 1.3 K/uL (0.7-4.9); Absolute Monocytes 1.1 K/uL (0.1-1.3); Absolute Neutrophil 8.5 K/uL (1.8-8.0); Basophils % 0.3 % (0-1.3); Eosinophils % 3.5 % (0-4.4); Hematocrit 40.4 % (39.6-49.0); Lymphocytes % 11.4 % (15.3-44.8); MPV 8.8 fL (7.6-11.3); Monocytes % 9.3 % (3.3-12.3); RBC Red Blood Cell Count 4.41 M/uL (4.33-5.43)
[2019-02-01 06:03] LABS: Albumin 2.6 g/dL (3.4-5.0); Bilirubin Total 0.3 mg/dL (0.2-1.0); Phosphorus 3.8 mg/dL (2.5-4.9); Potassium 3.2 mmol/L (3.5-5.1)
[2019-02-01] MEDS: KCL 20 MEQ/100 mL IVPB 20 MEQ/100 ML BAG IV SCH ×2 (06:40→09:41)
[2019-02-01] MEDS: PANTOPRAZOLE 40MG TABLET PO SCH (09:41)
[2019-02-01] MEDS: THIAMINE HCL 100 MG TABLET PO SCH (09:41)
[2019-02-01] MEDS: ENOXAPARIN 40 MG/0.4 ML SQ SCH (09:41)
[2019-02-01] MEDS: AMOX/K CLAV 875 MG TAB PO SCH ×2 (09:42→19:57)
--- NOTE | 2019-02-01 15:35 | P.PN ---
Subjective Date of Service: 02/01/19 Chief Complaint: Ventilator management pt seen and examined at bedside with RN. Chart Reviewed. Case DW with Family at bedside and Nursing at bedside. Currently Pt is extubated now and saturating well. Doing well overall. Awaiting Inpt [facility] bed. medically cleared Review of Systems 10-point ROS is otherwise unremarkable Physical Examination - Vital Signs Temperature: 98.4 F Blood Pressure: 136/87 Pulse: 76 Respirations: 31 Pulse Ox (%): 96 - Physical Exam General: Alert, In no apparent distress HEENT: Atraumatic, PERRLA, EOMI Neck: Supple, JVD not distended Respiratory: Clear to auscultation bilaterally, Normal air movement Cardiovascular: Regular rate/rhythm, Normal S1 S2 Gastrointestinal: Normal bowel sounds, No tenderness Musculoskeletal: No tenderness Integumentary: No rashes Neurological: Normal speech, Normal tone, Normal affect Lymphatics: No axilla or inguinal lymphadenopathy - Studies Medications List Reviewed: Yes Assessment And Plan - Current Problems (Diagnosis) (1) Acute respiratory distress Current Visit: Yes Status: Resolved Plan: Acute respiratory Distress 2.2 to Drug Overdose vs aspiration PNA. Now Resolved -Now Extubated and sedated. on NC saturating Well -Resolved now -PO Abx for aspiration PNA (2) Sepsis Current Visit: Yes Status: Resolved Plan: Sepsis 2.2 to aspiration PNA. -Resolve now. -Culture negative thus far -PO abx for aspiration PNA Qualifiers: Sepsis type: sepsis due to unspecified organism Qualified Code(s): A41.9 - Sepsis, unspecified organism (3) PNA (pneumonia) Current Visit: Yes Status: Resolved Plan: See # 1 Qualifiers: Pneumonia type: aspiration pneumonia Aspiration pneumonia type: due to vomit Laterality: unspecified laterality Lung location: unspecified part of lung Qualified Code(s): J69.0 - Pneumonitis due to inhalation of food and vomit (4) Drug overdose Current Visit: Yes Status: Resolved Plan: Unknown Drug overdose. Presumed Tylenol#3, [place], Nyquil -UDS + for PCP, opiates, Tylenol -IV fluids for now -Poison controlled called and reccs to monitor with LFT's, continues tele and CMP q6h -WNL now Qualifiers: Encounter type: initial encounter Injury intent: intentional self-harm Qualified Code(s): T50.902A - Poisoning by unspecified drugs, medicaments and biological substances, intentional self-harm, initial encounter (5) Suicide attempt Current Visit: Yes Status: Acute Plan: Not sucidal At this time -Awaiting Inpt Psyc bed - Plan medically Cleared for Dc to Ps facility Discharge Plan: Psychiatry Plan to discharge in: 48 Hours - Code Status/Comfort Care Code Status Assessed: Yes Critical Care: Yes
--- NOTE | 2019-02-01 15:37 | RAD REPORT ---
EXAM DESCRIPTION: RAD - Chest Single View - 02/01/2019 2:56 pm CLINICAL HISTORY: Rt sided pneumonia Chest pain. COMPARISON: Chest Single View dated 01/31/2019; Chest Single View dated 01/30/2019; Chest Single View dated 01/28/2019; Chest Single View dated 05/15/2017 FINDINGS: Portable technique limits examination quality. The lungs are grossly clear. The heart is normal in size. No displaced fractures. IMPRESSION: No acute intrathoracic process suspected.
--- NOTE | 2019-02-01 17:10 | P.DS ---
Admission Date: 01/29/19 Discharge Date: 02/01/19 Reason for Admission: Ventilator management - Problems (1) Acute respiratory distress Current Visit: Yes Status: Resolved (2) Sepsis Current Visit: Yes Status: Resolved Qualifiers: Sepsis type: sepsis due to unspecified organism Qualified Code(s): A41.9 - Sepsis, unspecified organism (3) PNA (pneumonia) Current Visit: Yes Status: Resolved Qualifiers: Pneumonia type: aspiration pneumonia Aspiration pneumonia type: due to vomit Laterality: unspecified laterality Lung location: unspecified part of lung Qualified Code(s): J69.0 - Pneumonitis due to inhalation of food and vomit (4) Drug overdose Current Visit: Yes Status: Resolved Qualifiers: Encounter type: initial encounter Injury intent: intentional self-harm Qualified Code(s): T50.902A - Poisoning by unspecified drugs, medicaments and biological substances, intentional self-harm, initial encounter (5) Suicide attempt Current Visit: Yes Status: Acute Brief History of Present Illness: Mr Frias is a 23 years old male with history of depression, previous suicidal attempt, who was righting suicidal notes in social media, and text messages yesterday. Apparently he took unknown amount and kind of pills, possible Nyquil. He become lethargic and sleepy. Family called 911. He gradually become more unresponsive, at arrival to ED his respiratory rate was very slow, O2 Sat mid 80's, hypotensive. It was decided to intubate the patient. Toxicology was positive for opiates, PCP, and acetaminophen. Hospital Course: Overall during the hospital stay patient remained stable Patient was initially admitted to the hospital for drug overdose after suicidal attempt with NyQuil 2 bottles, 30 of Tylenol 3. And 10 of [place] per family member at bedside. Patient initially when presented to the ER had acute respiratory distress and thus was intubated in the ER for airway protection. The patient was admitted to the ICU for further management. Patient was also started on Mucomyst for Tylenol toxicity here in the hospital. Patient's initial Tylenol level was less than 2 which did rise up to 9.6 and then to 2.6. Patient also had a UDS positive for PCP opioids as well. Patient had marked improvement in his symptoms and was eventually extubated once he was able to breathe on his own on an SIMV mode. After extubation patient did well overall. Patient's x-ray was concerning for aspiration pneumonia and thus was started on IV antibiotics on admission. Which were switched over to oral antibiotics when patient was extubated and was able to swallow. Patient then was referred over to inpatient psych with Sara Navarrete who recommended the patient do go to inpatient [facility] for further treatment. Patient was then referred over to [facility] and was accepted to the inpatient psych facility and was discharged there for further care. Patient was given a prescription for Augmentin to complete for his aspiration pneumonia. Patient's liver enzymes remained stable while here in the hospital and all other lab work remained stable as well. Patient had head CT done along with echocardiogram done here in the hospital which were both within normal limits. Patient was appeared to be tachycardic while here in the hospital cardiology was consulted. Patient however was not required tube placed on any medication has tachycardia is most likely secondary to his PCP consumption along with the acute illness. Patient was asked to follow up with primary care provider along with cardiology in about 1-2 days post discharge from the psych facility. Patient demonstrated understanding and thus was discharged to the psych facility for further care. Vital Signs/Physical Exam: Temp Pulse Resp BP Pulse Ox 98.4 F 92 H 29 H 122/75 99 02/01/19 15:35 02/01/19 16:00 02/01/19 16:00 02/01/19 16:00 02/01/19 16:00 General: Alert, In no apparent distress HEENT: Atraumatic, PERRLA, EOMI Neck: Supple, JVD not distended Respiratory: Clear to auscultation bilaterally, Normal air movement Cardiovascular: Regular rate/rhythm, Normal S1 S2 Gastrointestinal: Normal bowel sounds, No tenderness Musculoskeletal: No tenderness Integumentary: No rashes Neurological: Normal speech, Normal tone, Normal affect Lymphatics: No axilla or inguinal lymphadenopathy Laboratory Data at Discharge: WBC 11.3 K/uL (4.3-10.9) H 02/01/19 05:11 Hgb 13.7 g/dL (13.6-17.9) 02/01/19 05:11 Hct 40.4 % (39.6-49.0) 02/01/19 05:11 Plt Count 167 K/uL (152-406) D 02/01/19 05:11 PT 12.1 SECONDS (9.5-12.5) 01/28/19 22:05 INR 1.03 01/28/19 22:05 APTT 29.9 SECONDS (24.3-36.9) 01/28/19 22:05 Sodium 148 mmol/L (136-145) H 02/01/19 05:11 Potassium 3.2 mmol/L (3.5-5.1) L 02/01/19 05:11 BUN 8 mg/dL (7-18) 02/01/19 05:11 Creatinine 1.19 mg/dL (0.55-1.3) 02/01/19 05:11 Glucose 91 mg/dL (74-106) 02/01/19 05:11 Phosphorus 3.8 mg/dL (2.5-4.9) D 02/01/19 05:11 Magnesium 2.0 mg/dL (1.8-2.4) 02/01/19 05:11 Total Bilirubin 0.3 mg/dL (0.2-1.0) 02/01/19 05:11 AST 37 U/L (15-37) 02/01/19 05:11 ALT 29 U/L (12-78) 02/01/19 05:11 Alkaline Phosphatase 58 U/L (45-117) 02/01/19 05:11 Home Medications: NK [No Home Meds] 01/29/19
[2019-02-01] MEDS ORDERED: POTASSIUM 25 MEQ EFFERV TAB PO ONE (20:00)
[2019-02-02] MEDS: PANTOPRAZOLE 40MG TABLET PO SCH (05:58)
--- NOTE | 2019-02-02 06:57 | RAD REPORT ---
EXAM DESCRIPTION: RAD - Chest Single View - 02/02/2019 6:41 am CLINICAL HISTORY: Right-sided pneumonia COMPARISON: February 01, January 31 TECHNIQUE: AP portable chest image was obtained 0618 hours . FINDINGS: Lung volumes are low. Heart size and vasculature are upper normal, accentuated by the shal low inspiration. Lung parenchymal opacification is stable. No measurable pleural effusion and no pneu mothorax. IMPRESSION: Stable chest from prior day imaging.
[2019-02-02 07:29] LABS: Magnesium 2.2 mg/dL (1.8-2.4); Potassium 3.6 mmol/L (3.5-5.1)
--- NOTE | 2019-02-02 08:59 | P.PN ---
Subjective Date of Service: 02/02/19 Chief Complaint: Suicidal Ideations with attempt Subjective: No C/O voiced, Tolerating diet, Improving, Doing well (Patient feeling much better. Voluntarily wants to get help. Labs and imaging improved or without change from prior day. Medically cleared to be placed at [facility] for further psychiatric assessment) <DemetriachadBora - Last Filed: 02/02/19 08:54> Date of Service: 02/02/19 Subjective: Doing well <Sanford Leonardo - Last Filed: 02/02/19 13:32> Review of Systems General: Unremarkable Eyes: Unremarkable ENT: Unremarkable Respiratory: Unremarkable Cardiovascular: Unremarkable Gastrointestinal: Unremarkable Genitourinary: Unremarkable Musculoskeletal: Unremarkable Integumentary: Unremarkable Neurological: Unremarkable Lymphatics: Unremarkable <Bora Awad - Last Filed: 02/02/19 08:54> Physical Examination - Vital Signs Temperature: 98.9 F Blood Pressure: 152/91 Pulse: 90 Respirations: 22 Pulse Ox (%): 97 - Physical Exam General: Alert, In no apparent distress, Oriented x3, Cooperative HEENT: Normocephalic, PERRLA, Mucous membr. moist/pink Neck: Supple, JVD not distended, No Thyromegaly Respiratory: Clear to auscultation bilaterally, Normal air movement Cardiovascular: No edema, Normal pulses, Regular rate/rhythm, Normal S1 S2, No gallops, No rubs, No murmurs Capillary refill: <2 Seconds Gastrointestinal: Normal bowel sounds, Soft and benign, Non-distended, No tenderness, No masses, No rebound, No guarding Musculoskeletal: No clubbing, No swelling, No contractures, No erythema, No tenderness, No warmth Integumentary: No rashes, No breakdown, No significant lesion, No tenderness/ swelling, No erythema, No warmth, No cyanosis Neurological: Normal speech, Normal strength at 5/5 x4 extr, Normal tone, Sensation intact, Cranial nerves 3-12 intact, Normal reflexes 2+, Normal affect - Studies Medications List Reviewed: Yes <Bora Awad - Last Filed: 02/02/19 08:54> Assessment & Plan - Problems (Diagnosis) (1) Depression Current Visit: Yes Status: Acute Qualifiers: Depression Type: major depressive disorder Major depression recurrence: recurrent Active/Remission status: currently active Major depression episode severity: severe Psychotic features: with psychotic features Qualified Code(s): F33.3 - Major depressive disorder, recurrent, severe with psychotic symptoms (2) Respiratory failure Current Visit: Yes Status: Acute Plan: Patient without any respiratory distress. Has been off ventilator. Monitoring SPO2 (3) Suicide attempt Current Visit: Yes Status: Acute Plan: Medically cleared and awaiting placement at psychiatric facility (4) Acute respiratory distress Current Visit: Yes Status: Resolved (5) Drug overdose Current Visit: Yes Status: Resolved Qualifiers: Encounter type: initial encounter Injury intent: intentional self-harm Qualified Code(s): T50.902A - Poisoning by unspecified drugs, medicaments and biological substances, intentional self-harm, initial encounter (6) PNA (pneumonia) Current Visit: Yes Status: Resolved Qualifiers: Pneumonia type: aspiration pneumonia Aspiration pneumonia type: due to vomit Laterality: unspecified laterality Lung location: unspecified part of lung Qualified Code(s): J69.0 - Pneumonitis due to inhalation of food and vomit Discharge Plan: Transfer (To [facility] facility) Plan to discharge in: 24 Hours - Code Status/Comfort Care Code Status: Full Code Time Spent Managing Pts Care (In Minutes): 20 <Bora Awad - Last Filed: 02/02/19 08:54> Physician Review Additional Text: Patient seen and at bedside with CLIF Samson. Agree with plan of care. Lab reviewed. Patient is to be transferred to [facility] facility to be further evaluated and treated due to the suicide attempt. Patient is medically stable to be transferred. <Sanford Leonardo - Last Filed: 02/02/19 13:32>
[2019-02-02] MEDS: THIAMINE HCL 100 MG TABLET PO SCH (09:51)
[2019-02-02] MEDS: AMOX/K CLAV 875 MG TAB PO SCH (09:51)
[2019-02-02] MEDS: ENOXAPARIN 40 MG/0.4 ML SQ SCH (09:52)
[2019-02-02 10:59] LABS: Urine Appearance CLEAR; Urine Bilirubin NEGATIVE (NEG); Urine Blood 1+ (NEG); Urine Color YELLOW; Urine Glucose NEGATIVE (NEG); Urine Protein NEGATIVE (NEG); Urine Specific Gravity <=1.005 (1.005-1.030); Urine Urobilinogen 0.2 mg/dL (0.2-1.0)
[2019-02-02 11:21] LABS: Urine Bacteria NONE SEEN /HPF (NONE SEEN); Urine Culture Reflex Order NOT NEEDED
== END 2019-02-02 15:51 | DRG 917 ==
LOC: ER 22:08 → ERHOLD 01-29 02:13 → 3RD-ICU 01-29 17:41
PROVIDERS: ADMIT Internal Medicine; ATTEND Family Medicine
PROC: 0BH17EZ Insertion of Endotracheal Airway into Trachea, Via Natural or Artificial Opening (ICD-10-PCS; principal; 2019-01-29)
PROC: 5A1935Z Respiratory Ventilation, Less than 24 Consecutive Hours (ICD-10-PCS; 2019-01-29)
PROC: 06HM33Z Insertion of Infusion Device into Right Femoral Vein, Percutaneous Approach (ICD-10-PCS; 2019-01-29)
DX: T43.012A Poisoning by tricyclic antidepressants, intentional self-harm, initial encounter (principal); A41.9 Sepsis, unspecified organism; J69.0 Pneumonitis due to inhalation of food and vomit; F33.3 Major depressive disorder, recurrent, severe with psychotic symptoms; Y92.019 Unspecified place in single-family (private) house as the place of occurrence of the external cause; R06.03 Acute respiratory distress; I95.2 Hypotension due to drugs; R00.0 Tachycardia, unspecified
CPT/HCPCS: 31500; 36415; 51702; 70450; 71045; 71275; 80048; 80053; 80076; 80202; 80307; 80320; 80329; 81001; 81003; 82550; 82553; 82805; 83605; 83735; 84100; 84132; 85025; 85610; 85730; 87040; 87070; 87205; 93005; 93306; 93880; 94002; 94003; 99291; 99292; C9113; J0132; J0330; J1630; J1650; J2543; J2704; J3411; J3475; J3486; J7030; J7060; Q9967

== ENCOUNTER 2019-05-06 20:46 | Emergency (ER) | payer SELFPAY ==
--- NOTE | 2019-05-06 22:07 | EDPHYS ---
Physician Documentation [facility] Name: Felix Frias Age: 23 yrs Sex: Male : 1995 Arrival Date: 05/06/2019 Time: 20:50 Bed 13 Private MD: ED Physician Claude Hurtado HPI: 05/06 22:01 This 23 yrs old Male presents to ER via Ambulatory with complaints of dionne Headache, Sore Throat, General Weakness. 22:01 The patient complains of pain to the left ear, left jaw and left mandible. The patient dionne describes the headache as aching. Onset: The symptoms/episode began/occurred 3 day(s) ago. Associated signs and symptoms: The patient has no apparent associated signs or symptoms. Severity of symptoms: At its worst the pain was mild, in the emergency department the pain is unchanged. Headache History: Denies prior headaches. The symptoms are alleviated by nothing. the symptoms are aggravated by nothing. The patient has not experienced similar symptoms in the past. Historical: - Allergies: 21:41 No Known Allergies; bb - Home Meds: 21:41 Paxil 10 mg Oral tab 1 tab once daily [Active]; lisinopril 10 mg Oral tab 1 tab once bb daily [Active]; - PMHx: 21:41 Depression; Hypertension; bb - PSHx: 21:41 None; bb - Immunization history:: Adult Immunizations up to date. - Social history:: Smoking status: Patient/guardian denies using tobacco. - Ebola Screening: : No symptoms or risks identified at this time. - Family history:: not pertinent. ROS: 22:01 Constitutional: Negative for fever, chills, and weight loss, Eyes: Negative for injury, dionne pain, redness, and discharge, Neck: Negative for injury, pain, and swelling, Cardiovascular: Negative for chest pain, palpitations, and edema, Respiratory: Negative for shortness of breath, cough, wheezing, and pleuritic chest pain, Abdomen/GI: Negative for abdominal pain, nausea, vomiting, diarrhea, and constipation, Back: Negative for injury and pain, : Negative for injury, bleeding, discharge, and swelling, MS/Extremity: Negative for injury and deformity, Skin: Negative for injury, rash, and discoloration, Neuro: Negative for headache, weakness, numbness, tingling, and seizure, Psych: Negative for depression, anxiety, suicide ideation, homicidal ideation, and hallucinations, Allergy/Immunology: Negative for hives, rash, and allergies, Endocrine: Negative for neck swelling, polydipsia, polyuria, polyphagia, and marked weight changes, Hematologic/Lymphatic: Negative for swollen nodes, abnormal bleeding, and unusual bruising. 22:01 ENT: Negative for Exam: 22:01 Constitutional: This is a well developed, well nourished patient who is awake, alert, dionne and in no acute distress. Head/Face: Normocephalic, atraumatic. Eyes: Pupils equal round and reactive to light, extra-ocular motions intact. Lids and lashes normal. Conjunctiva and sclera are non-icteric and not injected. Cornea within normal limits. Periorbital areas with no swelling, redness, or edema. Chest/axilla: Normal chest wall appearance and motion. Nontender with no deformity. No lesions are appreciated. Cardiovascular: Regular rate and rhythm with a normal S1 and S2. No gallops, murmurs, or rubs. Normal PMI, no JVD. No pulse deficits. Respiratory: Lungs have equal breath sounds bilaterally, clear to auscultation and percussion. No rales, rhonchi or wheezes noted. No increased work of breathing, no retractions or nasal flaring. Abdomen/GI: Soft, non-tender, with normal bowel sounds. No distension or tympany. No guarding or rebound. No evidence of tenderness throughout. Back: No spinal tenderness. No costovertebral tenderness. Full range of motion. Male : Normal genitalia with no discharge or lesions. Skin: Warm, dry with normal turgor. Normal color with no rashes, no lesions, and no evidence of cellulitis. MS/ Extremity: Pulses equal, no cyanosis. Neurovascular intact. Full, normal range of motion. Neuro: Awake and alert, GCS 15, oriented to person, place, time, and situation. Cranial nerves II-XII grossly intact. Motor strength 5/5 in all extremities. Sensory grossly intact. Cerebellar exam normal. Normal gait. Psych: Awake, alert, with orientation to person, place and time. Behavior, mood, and affect are within normal limits. 22:01 ENT: Ear canal(s): erythema, that is minimal, of the left canal, swelling. 22:01 Neck: ROM/movement: is normal, no acute changes, Meningeal signs: are not present, Kernig's sign is negative, Brudzinski's sign is negative. 22:01 Chest/axilla: Inspection: normal, no acute changes, Palpation: is normal, no acute changes, Axilla: are normal, no acute changes, Lymph nodes: lymphadenopathy is not appreciated. 22:01 Respiratory: Exam negative for Vital Signs: 21:41 BP 118 / 70; Pulse 104; Resp 16 S; Temp 99.6(O); Pulse Ox 97% on R/A; Weight 111.13 kg bb (R); Height 5 ft. 6 in. (167.64 cm) (R); Pain 5/10; 22:30 BP 113 / 60; Pulse 94; Resp 16 S; Temp 99.5(O); Pulse Ox 100% on R/A; ca1 23:25 BP 116 / 61; Pulse 91; Resp 16 S; Temp 99.4; Pulse Ox 100% on R/A; ca1 21:41 Body Mass Index 39.54 (111.13 kg, 167.64 cm) bb MDM: 21:19 Patient medically screened. [facility] 22:05 Data reviewed: vital signs, nurses notes, lab test result(s). [facility] 05/06 20:52 Order name: Strep snw 05/06 20:52 Order name: Flu snw 05/06 22:26 Order name: Throat Culture EDMS Administered Medications: 23:00 Drug: Augmentin 875 mg Route: PO; ca1 23:29 Follow up: Response: No adverse reaction ca1 23:00 Drug: Motrin 600 mg Route: PO; ca1 23:30 Follow up: Response: No adverse reaction; Pain is decreased ca1 Disposition: 05/06/19 22:06 Discharged to Home. Impression: Headache, Acute pharyngitis. - Condition is Stable. - Discharge Instructions: Pharyngitis, Pharyngitis, [id number], Lymphadenopathy. - Prescriptions for Augmentin 875- 125 mg Oral Tablet - take 1 tablet by ORAL route every 12 hours for 10 days; 20 tablet. Ibuprofen 600 mg Oral Tablet - take 1 tablet by ORAL route every 8 hours As needed take with food; 21 tablet. - Medication Reconciliation Form, Thank You Letter, Antibiotic Education, Prescription Opioid Use, Work release form form. - Follow up: Private Physician; When: 2 - 3 days; Reason: Recheck today's complaints, Continuance of care, Re-evaluation by your physician. - Problem is new. - Symptoms have improved. Signatures: Dispatcher [employer] EDClaude Canchola MD MD cha Ballard, Brenda, MICHELLE RN bb Hiwot Terry RN RN ca1 Corrections: (The following items were deleted from the chart) 23:38 22:06 05/06/2019 22:06 Discharged to Home. Impression: Headache; Acute pharyngitis. ca1 Condition is Stable. Forms are Medication Reconciliation Form, Thank You Letter, Antibiotic Education, Prescription Opioid Use. Follow up: Private Physician; When: 2 - 3 days; Reason: Recheck today's complaints, Continuance of care, Re-evaluation by your physician. Problem is new. Symptoms have improved. dionne
--- NOTE | 2019-05-06 22:07 | ER ---
Nurse's Notes [facility] Name: Felix Frias Age: 23 yrs Sex: Male : 1995 Arrival Date: 05/06/2019 Time: 20:50 Bed 13 Private MD: Diagnosis: Headache;Acute pharyngitis Presentation: 05/06 21:39 Presenting complaint: Patient states: he has been having a constant headache with sore bb throat, left sided neck pain and chills x 1 week. Transition of care: patient was not received from another setting of care. Onset of symptoms was April 30, 2019. Risk Assessment: Do you want to hurt yourself or someone else? Patient reports no desire to harm self or others. Initial Sepsis Screen: Does the patient meet any 2 criteria? No. Patient's initial sepsis screen is negative. Does the patient have a suspected source of infection? No. Patient's initial sepsis screen is negative. Care prior to arrival: None. 21:39 Method Of Arrival: Ambulatory bb 21:39 Acuity: PARISH 4 bb Historical: - Allergies: 21:41 No Known Allergies; bb - Home Meds: 21:41 Paxil 10 mg Oral tab 1 tab once daily [Active]; lisinopril 10 mg Oral tab 1 tab once bb daily [Active]; - PMHx: 21:41 Depression; Hypertension; bb - PSHx: 21:41 None; bb - Immunization history:: Adult Immunizations up to date. - Social history:: Smoking status: Patient/guardian denies using tobacco. - Ebola Screening: : No symptoms or risks identified at this time. - Family history:: not pertinent. Screenin:40 Abuse screen: Denies threats or abuse. Denies injuries from another. Nutritional ca1 screening: No deficits noted. Tuberculosis screening: No symptoms or risk factors identified. Fall Risk None identified. Assessment: 21:40 General: Appears in no apparent distress. comfortable, Behavior is calm, cooperative, ca1 appropriate for age, Reports chills for 2-3 days. Pain: Complains of pain in left mandible and left jaw and left ear Pain currently is 6 out of 10 on a pain scale. Pain began 1 day ago. Neuro: Level of Consciousness is awake, alert, obeys commands, Oriented to person, place, time, situation. Cardiovascular: Heart tones S1 S2 present Capillary refill < 3 seconds Patient's skin is warm and dry. Respiratory: Airway is patent Respiratory effort is even, unlabored, Respiratory pattern is regular, symmetrical, Breath sounds are clear bilaterally. GI: No deficits noted. No signs and/or symptoms were reported involving the gastrointestinal system. : No deficits noted. No signs and/or symptoms were reported regarding the genitourinary system. EENT: No deficits noted. No signs and/or symptoms were reported regarding the EENT system. Derm: Skin is intact, is healthy with good turgor, Skin is pink, warm \T\ dry. Musculoskeletal: Circulation, motion, and sensation intact. Capillary refill < 3 seconds. 22:30 Reassessment: Patient appears in no apparent distress at this time. Patient and/or ca1 family updated on plan of care and expected duration. Pain level reassessed. Patient is alert, oriented x 3, equal unlabored respirations, skin warm/dry/pink. 23:25 Reassessment: Patient appears in no apparent distress at this time. Patient is alert, ca1 oriented x 3, equal unlabored respirations, skin warm/dry/pink. Vital Signs: 21:41 BP 118 / 70; Pulse 104; Resp 16 S; Temp 99.6(O); Pulse Ox 97% on R/A; Weight 111.13 kg bb (R); Height 5 ft. 6 in. (167.64 cm) (R); Pain 5/10; 22:30 BP 113 / 60; Pulse 94; Resp 16 S; Temp 99.5(O); Pulse Ox 100% on R/A; ca1 23:25 BP 116 / 61; Pulse 91; Resp 16 S; Temp 99.4; Pulse Ox 100% on R/A; ca1 21:41 Body Mass Index 39.54 (111.13 kg, 167.64 cm) bb ED Course: 20:50 Patient arrived in ED. am2 21:19 Claude Hurtado MD is Attending Physician. dionne 21:39 Hiwot Terry, MICHELLE is Primary Nurse. ca1 21:40 Triage completed. bb 21:41 Arm band placed on Patient placed in an exam room, on a stretcher, on pulse oximetry. bb 21:45 Patient has correct armband on for positive identification. Bed in low position. Call ca1 light in reach. Side rails up X 1. Pulse ox on. NIBP on. Warm blanket given. 23:37 No provider procedures requiring assistance completed. Patient did not have IV access ca1 during this emergency room visit. Administered Medications: 23:00 Drug: Augmentin 875 mg Route: PO; ca1 23:29 Follow up: Response: No adverse reaction ca1 23:00 Drug: Motrin 600 mg Route: PO; ca1 23:30 Follow up: Response: No adverse reaction; Pain is decreased ca1 Outcome: 22:06 Discharge ordered by . dionne 23:37 Discharged to home ambulatory. ca1 23:37 Condition: stable 23:37 Discharge instructions given to patient, Instructed on discharge instructions, follow up and referral plans. medication usage, Demonstrated understanding of instructions, follow-up care, medications, Prescriptions given X 2. 23:38 Patient left the ED. ca1 Signatures: Claude Hurtado MD MD cha Ballard, Brenda, RN RN bb Marina Boothe am2 Hiwot Terry RN RN ca1 Corrections: (The following items were deleted from the chart) 23:35 21:40 Patient has correct armband on for positive identification. Bed in low position. ca1 Call light in reach. Side rails up X 1. ca1 23:35 21:40 Pulse ox on. NIBP on. ca1 ca1 23:35 21:40 Warm blanket given. ca1 ca1
[2019-05-06] MEDS ORDERED: IBUPROFEN 400 MG TAB ONE (23:18)
[2019-05-06] MEDS ORDERED: AMOX/K CLAV 875 MG TAB ONE (23:18)
[2019-05-06] MEDS ORDERED: IBUPROFEN 200 MG TAB PO ONE (23:18)
== END 2019-05-06 23:38 | disposition home or self-care (01) ==
LOC: ER 20:46
DX: J02.9 Acute pharyngitis, unspecified (principal); I10 Essential (primary) hypertension; F32.9 Major depressive disorder, single episode, unspecified
CPT/HCPCS: 87070; 87081; 87804; 99283

== ENCOUNTER 2019-05-22 10:17 | Emergency (ER) | payer SELFPAY ==
--- NOTE | 2019-05-22 10:50 | ER ---
Nurse's Notes [facility] Name: Felix Frias Age: 23 yrs Sex: Male : 1995 Arrival Date: 05/22/2019 Time: 10:19 Bed 12 Private MD: Diagnosis: Acute pharyngitis Presentation: 05/22 10:26 Presenting complaint: Patient states: Sore throat and swollen areas of neck, reports sg had this happen last week, but symptoms improved so no follow up, but now the symptoms are back, reports headache that comes and goes and is now having some ear pain as well, denies n/v/d/fever at this time. Transition of care: patient was not received from another setting of care. Onset of symptoms was May 22, 2019. Risk Assessment: Do you want to hurt yourself or someone else? Patient reports no desire to harm self or others. Initial Sepsis Screen: Does the patient meet any 2 criteria? No. Patient's initial sepsis screen is negative. Does the patient have a suspected source of infection? No. Patient's initial sepsis screen is negative. Care prior to arrival: None. 10:26 Method Of Arrival: Ambulatory sg 10:26 Acuity: PARISH 4 sg Historical: - Allergies: 10:28 No Known Allergies; sg - Home Meds: 10:28 lisinopril 10 mg Oral tab 1 tab once daily [Active]; Paxil 10 mg Oral tab 1 tab once sg daily [Active]; - PMHx: 10:28 Depression; Hypertension; sg - PSHx: 10:28 None; sg - Immunization history:: Adult Immunizations up to date. - Social history:: Smoking status: Patient/guardian denies using tobacco, Patient/guardian denies using alcohol, street drugs, The patient lives with family. - Ebola Screening: : Patient negative for fever greater than or equal to 101.5 degrees Fahrenheit, and additional compatible Ebola Virus Disease symptoms Patient denies exposure to infectious person Patient denies travel to an Ebola-affected area in the 21 days before illness onset No symptoms or risks identified at this time. - Family history:: not pertinent. Screenin:28 Abuse screen: Denies threats or abuse. Denies injuries from another. Nutritional sg screening: No deficits noted. Tuberculosis screening: No symptoms or risk factors identified. Never had TB. Fall Risk None identified. Assessment: 10:28 General: Appears in no apparent distress. well groomed, well developed, well nourished, sg Behavior is calm, cooperative, appropriate for age. Pain: Complains of pain in right sternocleidomastoid and left sternocleidomastoid, and sore throat, left ear pain Quality of pain is described as aching. Neuro: Level of Consciousness is awake, alert, obeys commands, Oriented to person, place, time, situation, Moves all extremities. Full function Gait is steady, Speech is normal, Facial symmetry appears normal. Cardiovascular: Patient's skin is warm and dry. Chest pain is denied. Respiratory: Airway is patent Respiratory effort is even, unlabored, Respiratory pattern is regular, symmetrical, Denies cough, shortness of breath labored breathing, pain with respiration, pain with cough, pain with movement, air hunger. GI: No signs and/or symptoms were reported involving the gastrointestinal system. : No signs and/or symptoms were reported regarding the genitourinary system. EENT: Ear canal clear on left ear and right ear Nares are clear bilaterally Oral mucosa is moist. Throat is reddened. EENT:. Derm: Skin is pink, warm \T\ dry. Musculoskeletal: Circulation, motion, and sensation intact. Range of motion: intact in all extremities. Vital Signs: 10:27 BP 125 / 73; Pulse 86; Resp 17; Temp 99; Pulse Ox 99% on R/A; Weight 111.13 kg (R); sg Height 5 ft. 6 in. (167.64 cm); Pain 5/10; 10:27 Body Mass Index 39.54 (111.13 kg, 167.64 cm) sg ED Course: 10:19 Patient arrived in ED. mr 10:27 Triage completed. sg 10:28 Arm band placed on. sg 10:28 No provider procedures requiring assistance completed. Patient did not have IV access sg during this emergency room visit. 10:39 Gilma Clinton RN is Primary Nurse. ss 10:40 Lon Quach MD is Attending Physician. ma2 Administered Medications: No medications were administered Outcome: 10:49 Discharge ordered by . ma2 11:00 Discharged to home ambulatory. ss 11:00 Condition: good 11:00 Discharge instructions given to patient, Instructed on discharge instructions, follow up and referral plans. medication usage, Demonstrated understanding of instructions, follow-up care, medications, Prescriptions given X 2. 11:00 Patient left the ED. Signatures: Darian Elizabeth RN RN Ashley Rodriguez Shelby, RN RN ss Alzahri, Mohammad, MD MD ma2
--- NOTE | 2019-05-22 10:50 | EDPHYS ---
Physician Documentation [facility] Name: Felix Frias Age: 23 yrs Sex: Male : 1995 Arrival Date: 05/22/2019 Time: 10:19 Bed 12 Private MD: ED Physician Lon Quach HPI: 05/22 10:47 This 23 yrs old Male presents to ER via Ambulatory with complaints of ma2 Headache, Ear Pain. 10:47 The patient complains of pain to the forehead. Onset: The symptoms/episode ma2 began/occurred gradually, 1 week(s) ago. Associated signs and symptoms: Pertinent positives: Pertinent negatives: dizziness, malaise, Photophobia. Severity of symptoms: At its worst the pain was mild, in the emergency department the pain has resolved. The patient has not experienced similar symptoms in the past, The patient has experienced a previous episode. Historical: - Allergies: 10:28 No Known Allergies; sg - Home Meds: 10:28 lisinopril 10 mg Oral tab 1 tab once daily [Active]; Paxil 10 mg Oral tab 1 tab once sg daily [Active]; - PMHx: 10:28 Depression; Hypertension; sg - PSHx: 10:28 None; sg - Immunization history:: Adult Immunizations up to date. - Social history:: Smoking status: Patient/guardian denies using tobacco, Patient/guardian denies using alcohol, street drugs, The patient lives with family. - Ebola Screening: : Patient negative for fever greater than or equal to 101.5 degrees Fahrenheit, and additional compatible Ebola Virus Disease symptoms Patient denies exposure to infectious person Patient denies travel to an Ebola-affected area in the 21 days before illness onset No symptoms or risks identified at this time. - Family history:: not pertinent. ROS: 10:47 Constitutional: Negative for fever, chills, and weight loss, Cardiovascular: Negative ma2 for chest pain, palpitations, and edema, Respiratory: Negative for shortness of breath, cough, wheezing, and pleuritic chest pain. 10:47 ENT: Positive for ear pain, sore throat, Negative for hearing loss. 10:47 All other systems are negative. Exam: 10:47 Constitutional: This is a well developed, well nourished patient who is awake, alert, ma2 and in no acute distress. Head/Face: Normocephalic, atraumatic. Eyes: Pupils equal round and reactive to light, extra-ocular motions intact. Lids and lashes normal. Conjunctiva and sclera are non-icteric and not injected. Cornea within normal limits. Periorbital areas with no swelling, redness, or edema. Neck: Trachea midline, no thyromegaly or masses palpated, and no cervical lymphadenopathy. Supple, full range of motion without nuchal rigidity, or vertebral point tenderness. No Meningismus. Chest/axilla: Normal chest wall appearance and motion. Nontender with no deformity. No lesions are appreciated. Cardiovascular: Regular rate and rhythm with a normal S1 and S2. No gallops, murmurs, or rubs. Normal PMI, no JVD. No pulse deficits. Respiratory: Lungs have equal breath sounds bilaterally, clear to auscultation and percussion. No rales, rhonchi or wheezes noted. No increased work of breathing, no retractions or nasal flaring. Abdomen/GI: Soft, non-tender, with normal bowel sounds. No distension or tympany. No guarding or rebound. No evidence of tenderness throughout. 10:47 MS/ Extremity: Pulses equal, no cyanosis. Neurovascular intact. Full, normal range of motion. Neuro: Awake and alert, GCS 15, oriented to person, place, time, and situation. Cranial nerves II-XII grossly intact. Motor strength 5/5 in all extremities. Sensory grossly intact. Cerebellar exam normal. Normal gait. 10:47 ENT: TM's: are normal, Posterior pharynx: Tonsils: bilaterally enlarged, with erythema, peritonsillar mass, is not appreciated. Vital Signs: 10:27 BP 125 / 73; Pulse 86; Resp 17; Temp 99; Pulse Ox 99% on R/A; Weight 111.13 kg (R); sg Height 5 ft. 6 in. (167.64 cm); Pain 5/10; 10:27 Body Mass Index 39.54 (111.13 kg, 167.64 cm) sg MDM: 10:40 Patient medically screened. ma2 10:47 Differential diagnosis: migraine, otitis, sinusitis. Data reviewed: vital signs, nurses ma2 notes. Counseling: I had a detailed discussion with the patient and/or guardian regarding: the historical points, exam findings, and any diagnostic results supporting the discharge/admit diagnosis, the presence of at least one elevated blood pressure reading (>120/80) during this emergency department visit, the need for outpatient follow up. Medical screen evaluation completed. EMTALA emergency medical condition absent. Administered Medications: No medications were administered Disposition: 05/22/19 10:49 Discharged to Home. Impression: Acute pharyngitis. - Condition is Stable. - Discharge Instructions: Pharyngitis. - Prescriptions for Augmentin XR 1,000- 62.5 mg Oral Tablet Sustained Release 12 hr - take 2 tablet by ORAL route every 12 hours for 10 days; 40 tablet. Tylenol- Codeine #3 300-30 mg Oral Tablet - take 2 tablet by ORAL route every 6 hours As needed; 30 tablet. - Work release form, Medication Reconciliation Form, Thank You Letter, Antibiotic Education, Prescription Opioid Use form. - Follow up: Private Physician; When: Tomorrow; Reason: Continuance of care. Signatures: Darian Elizabeth RN RN Gilma Clinton RN RN ss Lon Quach MD MD ma2 Corrections: (The following items were deleted from the chart) 11:00 10:49 05/22/2019 10:49 Discharged to Home. Impression: Acute pharyngitis. Condition is ss Stable. Forms are Medication Reconciliation Form, Thank You Letter, Antibiotic Education, Prescription Opioid Use. Follow up: Private Physician; When: Tomorrow; Reason: Continuance of care. ma2
== END 2019-05-22 11:00 | disposition home or self-care (01) ==
LOC: ER 10:17
DX: J02.9 Acute pharyngitis, unspecified (principal); I10 Essential (primary) hypertension; F32.9 Major depressive disorder, single episode, unspecified
CPT/HCPCS: 99282

== ENCOUNTER 2019-11-10 03:08 | Emergency (ER) | payer SELFPAY ==
--- NOTE | 2019-11-10 04:02 | ER ---
Nurse's Notes [facility] Name: Felix Frias Age: 24 yrs Sex: Male : 1995 Arrival Date: 11/10/2019 Time: 03:11 Bed 5 Private MD: Diagnosis: Dermatitis, unspecified Presentation: 11/10 03:33 Presenting complaint: Patient states: Outbreak to face and general body, severe to lp1 face; Began about 3 weeks ago but has worsened. Transition of care: patient was not received from another setting of care. Onset of symptoms was November 10, 2019. Risk Assessment: Do you want to hurt yourself or someone else? Patient reports no desire to harm self or others. Initial Sepsis Screen: Does the patient meet any 2 criteria? No. Patient's initial sepsis screen is negative. Does the patient have a suspected source of infection? No. Patient's initial sepsis screen is negative. Care prior to arrival: None. 03:33 Method Of Arrival: Ambulatory lp1 03:33 Acuity: PARISH 4 lp1 Historical: - Allergies: 03:35 No Known Allergies; lp1 - Home Meds: 03:35 Hydrochlorothiazide Oral [Active]; lp1 - PMHx: 03:35 Depression; Hypertension; lp1 - PSHx: 03:35 None; lp1 - Immunization history:: Adult Immunizations up to date. - Social history:: Smoking status: Patient/guardian denies using tobacco. - Ebola Screening: : No symptoms or risks identified at this time. - Family history:: not pertinent. Screenin:36 Abuse screen: Denies threats or abuse. Denies injuries from another. Nutritional lp1 screening: No deficits noted. Tuberculosis screening: No symptoms or risk factors identified. Fall Risk None identified. Assessment: 03:36 General: Appears in no apparent distress. Behavior is calm. Pain: Denies pain. Neuro: lp1 No deficits noted. Cardiovascular: No deficits noted. Respiratory: No deficits noted. GI: No deficits noted. : No deficits noted. EENT: No deficits noted. Derm: Skin is intact, Skin is dry, Skin is normal, small abscesses to face. Musculoskeletal: No deficits noted. 04:36 Reassessment: Patient appears in no apparent distress at this time. Patient and/or jd3 family updated on plan of care and expected duration. Pain level reassessed. Patient is alert, oriented x 3, equal unlabored respirations, skin warm/dry/pink. reported understanding of discharge instructions. even and steady gait upon discharge. Vital Signs: 03:34 BP 121 / 51; Pulse 90; Resp 18; Temp 98.6(O); Pulse Ox 99% on R/A; Weight 117.93 kg; lp1 Height 5 ft. 6 in. (167.64 cm); Pain 0/10; 03:34 Body Mass Index 41.96 (117.93 kg, 167.64 cm) lp1 ED Course: 03:11 Patient arrived in ED. cl3 03:12 Claude Hurtado MD is Attending Physician. dionne 03:33 Mendy Sanchez, RN is Primary Nurse. lp1 03:34 Triage completed. lp1 03:34 Arm band placed on. lp1 03:36 Patient has correct armband on for positive identification. lp1 04:02 Kev Nelson MD is Referral Physician. dionne 04:36 No provider procedures requiring assistance completed. Patient did not have IV access jd3 during this emergency room visit. Administered Medications: 04:17 Drug: Rocephin (cefTRIAXone) 1 grams Route: IM; Site: left gluteus; jd3 04:38 Follow up: Response: No adverse reaction jd3 04:17 Drug: Zithromax 1 grams Route: PO; jd3 04:38 Follow up: Response: No adverse reaction jd3 04:17 Drug: Doxycycline 200 mg Route: PO; jd3 04:38 Follow up: Response: No adverse reaction jd3 Outcome: 04:02 Discharge ordered by . dionne 04:36 Discharged to home ambulatory. jd3 04:36 Condition: stable 04:36 Discharge instructions given to patient, Instructed on discharge instructions, follow up and referral plans. medication usage, Demonstrated understanding of instructions, follow-up care, medications, Prescriptions given X 4. 04:37 Patient left the ED. jd3 Signatures: Claude Hurtado MD MD cha Pena, Laura, RN RN lp1 Rufus Sandra RN RN jd3 Omar Georges cl3
--- NOTE | 2019-11-10 04:03 | EDPHYS ---
Physician Documentation [facility] Name: Felix Frias Age: 24 yrs Sex: Male : 1995 Arrival Date: 11/10/2019 Time: 03:11 Bed 5 Private MD: ED Physician Claude Hurtado HPI: 11/10 03:57 This 24 yrs old Male presents to ER via Ambulatory with complaints of Breaking dionne Out. 03:57 The patient's rash thought to be caused by Dermatitis. The rash is located on the face, dionne back, chest, right arm and left arm. The rash can be described as erythematous, patchy. Onset: The symptoms/episode began/occurred 14 day(s) ago. Associated signs and symptoms: Pertinent positives: burning sensation, itching. Severity of symptoms: At their worst the symptoms were mild in the emergency department the symptoms are unchanged. Historical: - Allergies: 03:35 No Known Allergies; lp1 - Home Meds: 03:35 Hydrochlorothiazide Oral [Active]; lp1 - PMHx: 03:35 Depression; Hypertension; lp1 - PSHx: 03:35 None; lp1 - Immunization history:: Adult Immunizations up to date. - Social history:: Smoking status: Patient/guardian denies using tobacco. - Ebola Screening: : No symptoms or risks identified at this time. - Family history:: not pertinent. ROS: 03:57 Constitutional: Negative for fever, chills, and weight loss, Eyes: Negative for injury, dionne pain, redness, and discharge, ENT: Negative for injury, pain, and discharge, Neck: Negative for injury, pain, and swelling, Cardiovascular: Negative for chest pain, palpitations, and edema, Respiratory: Negative for shortness of breath, cough, wheezing, and pleuritic chest pain, Abdomen/GI: Negative for abdominal pain, nausea, vomiting, diarrhea, and constipation, Back: Negative for injury and pain, : Negative for injury, bleeding, discharge, and swelling, MS/Extremity: Negative for injury and deformity, Neuro: Negative for headache, weakness, numbness, tingling, and seizure, Psych: Negative for depression, anxiety, suicide ideation, homicidal ideation, and hallucinations, Allergy/Immunology: Negative for hives, rash, and allergies, Endocrine: Negative for neck swelling, polydipsia, polyuria, polyphagia, and marked weight changes, Hematologic/Lymphatic: Negative for swollen nodes, abnormal bleeding, and unusual bruising. 03:57 Skin: Positive for lesions, rash, diffusely. Exam: 03:57 Constitutional: This is a well developed, well nourished patient who is awake, alert, dionne and in no acute distress. Head/Face: Normocephalic, atraumatic. Eyes: Pupils equal round and reactive to light, extra-ocular motions intact. Lids and lashes normal. Conjunctiva and sclera are non-icteric and not injected. Cornea within normal limits. Periorbital areas with no swelling, redness, or edema. ENT: Nares patent. No nasal discharge, no septal abnormalities noted. Tympanic membranes are normal and external auditory canals are clear. Oropharynx with no redness, swelling, or masses, exudates, or evidence of obstruction, uvula midline. Mucous membranes moist. Neck: Trachea midline, no thyromegaly or masses palpated, and no cervical lymphadenopathy. Supple, full range of motion without nuchal rigidity, or vertebral point tenderness. No Meningismus. Chest/axilla: Normal chest wall appearance and motion. Nontender with no deformity. No lesions are appreciated. Cardiovascular: Regular rate and rhythm with a normal S1 and S2. No gallops, murmurs, or rubs. Normal PMI, no JVD. No pulse deficits. Respiratory: Lungs have equal breath sounds bilaterally, clear to auscultation and percussion. No rales, rhonchi or wheezes noted. No increased work of breathing, no retractions or nasal flaring. Abdomen/GI: Soft, non-tender, with normal bowel sounds. No distension or tympany. No guarding or rebound. No evidence of tenderness throughout. Back: No spinal tenderness. No costovertebral tenderness. Full range of motion. Male : Normal genitalia with no discharge or lesions. MS/ Extremity: Pulses equal, no cyanosis. Neurovascular intact. Full, normal range of motion. Neuro: Awake and alert, GCS 15, oriented to person, place, time, and situation. Cranial nerves II-XII grossly intact. Motor strength 5/5 in all extremities. Sensory grossly intact. Cerebellar exam normal. Normal gait. Psych: Awake, alert, with orientation to person, place and time. Behavior, mood, and affect are within normal limits. 03:57 Skin: Appearance: Color: normal in color, Temperature: normal temperature, Moisture: normal moisture, petechiae, not noted, ecchymosis, not noted. Vital Signs: 03:34 BP 121 / 51; Pulse 90; Resp 18; Temp 98.6(O); Pulse Ox 99% on R/A; Weight 117.93 kg; lp1 Height 5 ft. 6 in. (167.64 cm); Pain 0/10; 03:34 Body Mass Index 41.96 (117.93 kg, 167.64 cm) lp1 MDM: 03:12 Patient medically screened. [facility] 03:57 Data reviewed: vital signs, nurses notes, lab test result(s). [facility] 11/10 04:14 Order name: Glucose, Ancillary Testing EDVT 11/10 03:57 Order name: Blood Glucose Level; Complete Time: 04:02 [facility] Administered Medications: 04:17 Drug: Rocephin (cefTRIAXone) 1 grams Route: IM; Site: left gluteus; jd3 04:38 Follow up: Response: No adverse reaction jd3 04:17 Drug: Zithromax 1 grams Route: PO; jd3 04:38 Follow up: Response: No adverse reaction jd3 04:17 Drug: Doxycycline 200 mg Route: PO; jd3 04:38 Follow up: Response: No adverse reaction jd3 Disposition: 11/10/19 04:02 Discharged to Home. Impression: Dermatitis, unspecified. - Condition is Stable. - Discharge Instructions: Rash, Rash, [id number]. - Prescriptions for Benadryl 25 mg Oral Capsule - take 1 capsule by ORAL route every 6 hours As needed; 30 tablet. Pepcid 20 mg Oral Tablet - take 1 tablet by ORAL route every 12 hours for 10 days; 20 tablet. Doxycycline Hyclate 100 mg Oral Tablet - take 1 tablet by ORAL route every 12 hours; 20 tablet. Hydrocortisone 0.5 % Topical Cream - apply 1 application by TOPICAL route every 12 hours As needed; 30 gram. - Medication Reconciliation Form, Thank You Letter, Antibiotic Education, Prescription Opioid Use form. - Follow up: Private Physician; When: 2 - 3 days; Reason: Recheck today's complaints, Continuance of care, Re-evaluation by your physician. Follow up: Kev Nelson; When: 2 - 3 days; Reason: Recheck today's complaints, Re-evaluation by your physician. - Problem is new. - Symptoms have improved. Signatures: Claude Hurtado MD MD cha Pena, Laura RN RN lp1 Rufus Sandra RN RN jd3 Corrections: (The following items were deleted from the chart) 04:37 04:02 11/10/2019 04:02 Discharged to Home. Impression: Dermatitis, unspecified. jd3 Condition is Stable. Discharge Instructions: Rash, Rash, [id number]. Prescriptions for Benadryl 25 mg Oral Capsule - take 1 capsule by ORAL route every 6 hours As needed; 30 tablet, Pepcid 20 mg Oral Tablet - take 1 tablet by ORAL route every 12 hours for 10 days; 20 tablet, Doxycycline Hyclate 100 mg Oral Tablet - take 1 tablet by ORAL route every 12 hours; 20 tablet, Hydrocortisone 0.5 % Topical Cream - apply 1 application by TOPICAL route every 12 hours As needed; 30 gram. and Forms are Medication Reconciliation Form, Thank You Letter, Antibiotic Education, Prescription Opioid Use. Follow up: Private Physician; When: 2 - 3 days; Reason: Recheck today's complaints, Continuance of care, Re-evaluation by your physician. Follow up: Kev Nelson; When: 2 - 3 days; Reason: Recheck today's complaints, Re-evaluation by your physician. Problem is new. Symptoms have improved. dionne
[2019-11-10] MEDS ORDERED: AZITHROMYCIN 250 MG TAB ONE (04:05)
[2019-11-10] MEDS ORDERED: DOXYCYCLINE 100 MG CAP PO ONE (04:06)
[2019-11-10] MEDS ORDERED: CEFTRIAXONE 1000 MG/VIAL ONE (04:06)
[2019-11-10 15:29] VITALS: BP 121/51; TEMP 98.6; O2SAT 99
== END 2019-11-10 04:37 | disposition home or self-care (01) ==
LOC: ER 03:08
DX: L30.9 Dermatitis, unspecified (principal); I10 Essential (primary) hypertension
CPT/HCPCS: 82947; 96372; 99283

== ENCOUNTER 2020-01-09 22:34 | Emergency (ER) | payer SELFPAY ==
--- NOTE | 2020-01-09 23:47 | EDPHYS ---
Physician Documentation [facility] Name: Felix Frias Age: 24 yrs Sex: Male : 1995 Arrival Date: 01/09/2020 Time: 22:35 Bed 15 Private MD: ED Physician Josué Beltran HPI: 01/10 00:16 This 24 yrs old Male presents to ER via Ambulatory with complaints of Chest snw Pain. 00:16 Onset: The symptoms/episode began/occurred gradually, and became persistent. Associated snw signs and symptoms: Pertinent positives: chest pain, cough, wheezing. It is unknown whether or not the patient has had similar symptoms in the past, hx of asthma. The patient has not recently seen a physician. Historical: - Allergies: 01/09 22:48 No Known Allergies; bb - Home Meds: 22:48 Hydrochlorothiazide Oral [Active]; bb - PMHx: 22:48 Depression; Hypertension; bb - PSHx: 22:48 None; bb - Immunization history:: Adult Immunizations up to date. - Coronavirus screen:: The patient has NOT traveled to [place] in the past 14 days. Proceed with normal triage process as indicated. - Social history:: Smoking status: Patient denies any tobacco usage or history of. Patient/guardian denies using alcohol. - Ebola Screening: : No symptoms or risks identified at this time. ROS: 01/10 00:15 Constitutional: Negative for fever, chills, and weight loss, Eyes: Negative for injury, snw pain, redness, and discharge, Neck: Negative for injury, pain, and swelling, Cardiovascular: Negative for chest pain, palpitations, and edema, Abdomen/GI: Negative for abdominal pain, nausea, vomiting, diarrhea, and constipation, Back: Negative for injury and pain, : Negative for injury, bleeding, discharge, and swelling, MS/Extremity: Negative for injury and deformity, Skin: Negative for injury, rash, and discoloration, Neuro: Negative for headache, weakness, numbness, tingling, and seizure, Psych: Negative for depression, anxiety, suicide ideation, homicidal ideation, and hallucinations. ENT: Positive for ear pain, sinus congestion. Respiratory: Positive for cough, with rust-colored sputum, pleurisy, wheezing. Exam: 00:11 Constitutional: This is a well developed, well nourished patient who is awake, alert, snw and in no acute distress. Head/Face: Normocephalic, atraumatic. Eyes: Pupils equal round and reactive to light, extra-ocular motions intact. Lids and lashes normal. Conjunctiva and sclera are non-icteric and not injected. Cornea within normal limits. Periorbital areas with no swelling, redness, or edema. 00:11 Neck: Trachea midline, no thyromegaly or masses palpated, and no cervical lymphadenopathy. Supple, full range of motion without nuchal rigidity, or vertebral point tenderness. No Meningismus. Chest/axilla: Normal chest wall appearance and motion. Nontender with no deformity. No lesions are appreciated. Cardiovascular: Regular rate and rhythm with a normal S1 and S2. No gallops, murmurs, or rubs. Normal PMI, no JVD. No pulse deficits. 00:11 Abdomen/GI: Soft, non-tender, with normal bowel sounds. No distension or tympany. No guarding or rebound. No evidence of tenderness throughout. Back: No spinal tenderness. No costovertebral tenderness. Full range of motion. Skin: Warm, dry with normal turgor. Normal color with no rashes, no lesions, and no evidence of cellulitis. MS/ Extremity: Pulses equal, no cyanosis. Neurovascular intact. Full, normal range of motion. Neuro: Awake and alert, GCS 15, oriented to person, place, time, and situation. Cranial nerves II-XII grossly intact. Motor strength 5/5 in all extremities. Sensory grossly intact. Cerebellar exam normal. Normal gait. Psych: Awake, alert, with orientation to person, place and time. Behavior, mood, and affect are within normal limits. 00:11 ENT: Ear canal(s): are normal, TM's: erythema, that is moderate, Nose: is normal, Mouth: is normal, Posterior pharynx: is normal, Voice: is normal. 00:11 Respiratory: Respirations: normal, Breath sounds: bronchial sounds, + upper airway congestion. Vital Signs: 01/09 22:48 BP 118 / 56; Pulse 94; Resp 16 S; Temp 98.6(O); Pulse Ox 98% on R/A; Weight 131.09 kg bb (R); Height 5 ft. 6 in. (167.64 cm) (R); Pain 5/10; 01/10 00:00 BP 121 / 75; Pulse 90; Resp 17; Temp 98.5; Pulse Ox 98% ; rr5 01/09 22:48 Body Mass Index 46.65 (131.09 kg, 167.64 cm) bb MDM: 01/09 22:58 Patient medically screened. snw 01/10 00:15 Data reviewed: vital signs, nurses notes. Data interpreted: Pulse oximetry: on room air snw is 98 %. Interpretation: normal. Counseling: I had a detailed discussion with the patient and/or guardian regarding: the historical points, exam findings, and any diagnostic results supporting the discharge/admit diagnosis, radiology results, the need for outpatient follow up, to return to the emergency department if symptoms worsen or persist or if there are any questions or concerns that arise at home. Special discussion: Based on the history and exam findings, there is no indication for further emergent testing or inpatient evaluation. I discussed with the patient/guardian the need to see the primary care provider for further evaluation of the symptoms. 01/09 22:48 Order name: Chest Pa And Lat (2 Views) XRAY snw Administered Medications: 00:00 Drug: Tussionex Pennkinetic ER 5 ml Route: PO; rr5 00:15 Follow up: Response: No adverse reaction; Medication administered at discharge. rr5 00:01 Drug: Zithromax 500 mg Route: PO; rr5 00:15 Follow up: Response: No adverse reaction; Medication administered at discharge. rr5 00:07 Drug: Albuterol 2.5 mg Route: Inhalation; rr5 00:15 Follow up: Response: No adverse reaction rr5 Disposition: 08:20 Co-signature as Attending Physician, Josué Beltran MD I agree with the assessment and tw4 plan of care. Disposition: 01/09/20 23:46 Discharged to Home. Impression: Acute bronchitis, unspecified, Otitis media, unspecified. - Condition is Stable. - Discharge Instructions: Acute Bronchitis, Adult, Otitis Media, Adult, Rehydration, Adult. - Prescriptions for Tessalon Perles 100 mg Oral Capsule - take 1 capsule by ORAL route every 8 hours As needed; 15 capsule. Prednisone 20 mg Oral Tablet - take 2 tablet by ORAL route once daily for 5 days; 10 tablet. Albuterol Sulfate 90 mcg/actuation - inhale 1-2 puff by INHALATION route every 4-6 hours; 1 Inhaler. Zithromax 500 mg Oral Tablet - take 1 tablet by ORAL route once daily for 5 days; 5 tablet. - Work release form, Medication Reconciliation Form, Thank You Letter, Antibiotic Education, Prescription Opioid Use form. - Follow up: Emergency Department; When: As needed; Reason: Worsening of condition. Follow up: Private Physician; When: 2 - 3 days; Reason: Recheck today's complaints, Continuance of care, Re-evaluation by your physician. Signatures: Dispatcher [employer] EDMS Milena Estrada, [employer]LE CREWMEMBER-C [employer]BMER[employer]HICLE CREWMEMBER-Csnw Rebeca Rose RN RN bb Josué Beltran MD MD tw4 Noel Henry RN RN rr5 Corrections: (The following items were deleted from the chart) 00:18 01/09 23:46 01/09/2020 23:46 Discharged to Home. Impression: Acute bronchitis, rr5 unspecified; Otitis media, unspecified. Condition is Stable. Forms are Medication Reconciliation Form, Thank You Letter, Antibiotic Education, Prescription Opioid Use. Follow up: Emergency Department; When: As needed; Reason: Worsening of condition. Follow up: Private Physician; When: 2 - 3 days; Reason: Recheck today's complaints, Continuance of care, Re-evaluation by your physician. snw
--- NOTE | 2020-01-09 23:47 | ER ---
Nurse's Notes [facility] Name: Felix Frias Age: 24 yrs Sex: Male : 1995 Arrival Date: 01/09/2020 Time: 22:35 Bed 15 Private MD: Diagnosis: Acute bronchitis, unspecified;Otitis media, unspecified Presentation: 01/09 22:46 Presenting complaint: Patient states: he has been having allergy symptoms for the past bb week and now is coughing and states his chest hurts a little when he coughs, also it looked like a little blood in the phlegm he coughed up earlier denies fever, feels a little SOB. Transition of care: patient was not received from another setting of care. Onset of symptoms was January 09, 2020. Risk Assessment: Do you want to hurt yourself or someone else? Patient reports no desire to harm self or others. Initial Sepsis Screen: Does the patient meet any 2 criteria? No. Patient's initial sepsis screen is negative. Does the patient have a suspected source of infection? No. Patient's initial sepsis screen is negative. Care prior to arrival: None. 22:46 Method Of Arrival: Ambulatory bb 22:46 Acuity: PARISH 3 bb Triage Assessment: 22:50 General: Appears in no apparent distress. comfortable, Behavior is calm, cooperative, rr5 appropriate for age. Historical: - Allergies: 22:48 No Known Allergies; bb - Home Meds: 22:48 Hydrochlorothiazide Oral [Active]; bb - PMHx: 22:48 Depression; Hypertension; bb - PSHx: 22:48 None; bb - Immunization history:: Adult Immunizations up to date. - Coronavirus screen:: The patient has NOT traveled to [place] in the past 14 days. Proceed with normal triage process as indicated. - Social history:: Smoking status: Patient denies any tobacco usage or history of. Patient/guardian denies using alcohol. - Ebola Screening: : No symptoms or risks identified at this time. Screenin:50 Abuse screen: Denies threats or abuse. Denies injuries from another. Nutritional rr5 screening: No deficits noted. Tuberculosis screening: No symptoms or risk factors identified. Fall Risk None identified. Total Obrien Fall Scale indicates No Risk (0-24 pts). Assessment: 22:50 General: Appears in no apparent distress. comfortable, Behavior is calm, cooperative, rr5 appropriate for age. 22:50 Pain: Complains of pain in chest Pain does not radiate. Pain currently is 5 out of 10 rr5 on a pain scale. Quality of pain is described as aching, Pain began gradually, Is intermittent. Neuro: Level of Consciousness is awake, alert, obeys commands, Oriented to person, place, time, situation, Appropriate for age. Cardiovascular: Reports chest pain when coughing Capillary refill < 3 seconds Patient's skin is warm and dry. Respiratory: Reports cough that is Airway is patent Respiratory effort is even, unlabored, Respiratory pattern is regular, symmetrical. GI: No signs and/or symptoms were reported involving the gastrointestinal system. : No signs and/or symptoms were reported regarding the genitourinary system. EENT: No signs and/or symptoms were reported regarding the EENT system. Derm: Skin is intact, is healthy with good turgor, Skin temperature is warm. Musculoskeletal: Circulation, motion, and sensation intact. Capillary refill < 3 seconds. 23:15 Reassessment: Patient appears in no apparent distress at this time. No changes from rr5 previously documented assessment. Patient and/or family updated on plan of care and expected duration. Pain level reassessed. 01/10 00:00 Reassessment: Patient appears in no apparent distress at this time. Patient is alert, rr5 oriented x 3, equal unlabored respirations, skin warm/dry/pink. discharge instruction given and explained without complaints made. Patient states feeling better. Patient states symptoms have improved. 00:15 Reassessment: Patient appears in no apparent distress at this time. Patient is alert, rr5 oriented x 3, equal unlabored respirations, skin warm/dry/pink. the enterprise cloud architect instructed to drive and patient reminded he is not allowed to drive tonight because of the medication he received. Vital Signs: 01/09 22:48 BP 118 / 56; Pulse 94; Resp 16 S; Temp 98.6(O); Pulse Ox 98% on R/A; Weight 131.09 kg bb (R); Height 5 ft. 6 in. (167.64 cm) (R); Pain /; 01/10 00:00 BP 121 / 75; Pulse 90; Resp 17; Temp 98.5; Pulse Ox 98% ; rr5 01/09 22:48 Body Mass Index 46.65 (131.09 kg, 167.64 cm) ED Course: 01/09 22:35 Patient arrived in ED. cl3 22:42 Noel Henry, RN is Primary Nurse. rr5 22:43 Milena Estrada FNP-C is PHCP. snw 22:43 Josué Beltran MD is Attending Physician. snw 22:48 Triage completed. bb 22:48 Arm band placed on Patient placed in an exam room, on a stretcher, on pulse oximetry. bb 22:50 Patient has correct armband on for positive identification. Bed in low position. Call rr5 light in reach. Side rails up X2. 22:50 Pulse ox on. NIBP on. rr5 23:09 Chest Pa And Lat (2 Views) XRAY In Process Unspecified. EDMS 02 00:15 No provider procedures requiring assistance completed. Patient did not have IV access rr5 during this emergency room visit. Patient maintains SpO2 saturation greater than 95% on room air. Administered Medications: 00:00 Drug: Tussionex Pennkinetic ER 5 ml Route: PO; rr5 00:15 Follow up: Response: No adverse reaction; Medication administered at discharge. rr5 00:01 Drug: Zithromax 500 mg Route: PO; rr5 00:15 Follow up: Response: No adverse reaction; Medication administered at discharge. rr5 00:07 Drug: Albuterol 2.5 mg Route: Inhalation; rr5 00:15 Follow up: Response: No adverse reaction rr5 Outcome: 01/09 23:46 Discharge ordered by MD. snw 01/10 00:15 Discharged to home ambulatory. rr5 Condition: stable Discharge instructions given to patient, Instructed on discharge instructions, follow up and referral plans. medication usage, Demonstrated understanding of instructions, follow-up care, medications, Prescriptions given X 3. 00:18 Patient left the ED. rr5 Signatures: Dispatcher [employer] EDKS Milena Estrada FNP-C FNP-Rebeca Simmons RN RN bb Noel Henry, RN RN rr5 Omar Georges cl3
[2020-01-09] MEDS ORDERED: AZITHROMYCIN 250 MG TAB ONE (23:59)
[2020-01-09] MEDS ORDERED: ALBUTEROL 2.5 MG/3 ML NEB SOL ONE (23:59)
[2020-01-10] MEDS ORDERED: HYDROCODONE/CHLORPHEN 5 ML/OSYR ONE
[2020-01-10 01:33] VITALS: BP 118/56; TEMP 98.6; O2SAT 98
--- NOTE | 2020-01-10 09:33 | RAD REPORT ---
EXAM DESCRIPTION: RAD - Chest Pa And Lat (2 Views) - 01/09/2020 11:09 pm CLINICAL HISTORY: CHEST PAIN COMPARISON: Chest Single View dated 02/02/2019; Chest Single View dated 02/01/2019; Chest Single View dated 01/31/2019; Chest Single View dated 01/30/2019 TECHNIQUE: Frontal and lateral views of the chest were obtained. FINDINGS: The lungs are clear. Heart size is normal and central vasculature is within normal limit s. No pleural effusion or pneumothorax seen. No acute bony finding noted. No aortic abnormality. IMPRESSION: No acute cardiopulmonary process. No significant change from comparison.
== END 2020-01-10 00:18 | disposition home or self-care (01) ==
LOC: ER 22:34
DX: J20.9 Acute bronchitis, unspecified (principal); H66.90 Otitis media, unspecified, unspecified ear; I10 Essential (primary) hypertension; F32.9 Major depressive disorder, single episode, unspecified
CPT/HCPCS: 71046; 99285

== ENCOUNTER 2022-10-25 13:40 | Emergency (ER) | payer SELFPAY ==
--- NOTE | 2022-10-25 14:53 | RAD REPORT ---
EXAM DESCRIPTION: RAD -Hand Left 3 View - 10/25/2022 2:44 pm CLINICAL HISTORY: Left hand numbness FINDINGS: No fracture or dislocation is seen. No bone or joint abnormality noted
--- NOTE | 2022-10-25 16:06 | EDPHYS ---
Physician Documentation [facility] Name: Felix Frias Age: 27 yrs Sex: Male : 1995 Arrival Date: 10/25/2022 Time: 13:41 Bed IW1 Private MD: ED Physician Nico Blakely HPI: 10/25 14:18 This 27 yrs old Male presents to ER via Ambulatory with complaints of Numbness jmm Of Hand. 14:18 The patient or guardian reports numbness. This is a 27 year old male with a history of jmm depression htn that presents to the ED with complaints of left hand numbness, mainly around the base of his thumb and the back of his hand. . Historical: - Allergies: 14:11 No Known Allergies; jl7 - Home Meds: 14:11 None [Active]; jl7 - PMHx: 14:11 Depression; Hypertension; jl7 - PSHx: 14:11 None; jl7 - Immunization history:: Client reports receiving the 2nd dose of the Covid vaccine. - Social history:: Smoking status: Patient denies any tobacco usage or history of. ROS: 18:19 Constitutional: Negative for fever, chills, and weight loss, Cardiovascular: Negative jmm for chest pain, palpitations, and edema, Respiratory: Negative for shortness of breath, cough, wheezing, and pleuritic chest pain. 18:19 MS/extremity: Positive for numbness. 18:19 All other systems are negative. Exam: 18:19 Constitutional: This is a well developed, well nourished patient who is awake, alert, jmm and in no acute distress. Head/Face: atraumatic. Eyes: EOMI, no conjunctival erythema appreciated ENT: Moist Mucus Membranes Neck: Trachea midline, Supple Chest/axilla: Normal chest wall appearance and motion. Cardiovascular: Regular rate and rhythm. No edema appreciated Respiratory: Normal respirations, no respiratory distress appreciated Abdomen/GI: Non distended Back: Normal ROM Skin: General appearance color normal 18:19 Musculoskeletal/extremity: FROM appreciated to the left thumb, full strength against resistance. < sec dist cap refill, NVI. 18:19 Skin: Appearance: Color: normal in color. 18:19 Neuro: Orientation: is normal, Mentation: is normal, Memory: is normal. 18:19 Psych: Behavior/mood is pleasant, cooperative. Vital Signs: 14:10 BP 149 / 100; Pulse 73; Resp 17; Temp 98; Pulse Ox 100% on R/A; Weight 136.08 kg; jl7 Height 5 ft. 5 in. (165.10 cm); Pain 0/10; 14:10 Body Mass Index 49.92 (136.08 kg, 165.10 cm) jl7 MDM: 14:18 Patient medically screened. [facility] 16:05 Data reviewed: vital signs, nurses notes. Counseling: I had a detailed discussion with alysha the patient and/or guardian regarding: the historical points, exam findings, and any diagnostic results supporting the discharge/admit diagnosis, radiology results, the need for outpatient follow up, to return to the emergency department if symptoms worsen or persist or if there are any questions or concerns that arise at home. 10/25 14:28 Order name: Hand Left 3 View XRAY; Complete Time: 14:57 [facility] Administered Medications: No medications were administered Disposition: 17:15 Co-signature as Attending Physician, Nico Blakely MD I agree with the assessment and kdr plan of care. Disposition Summary: 10/25/22 16:06 Discharge Ordered Location: Home [facility] Condition: Stable [facility] Diagnosis - Peripheral Neuropathy [facility] Followup: [facility] - With: Hayden Almanzar MD - When: 2 - 3 days - Reason: Recheck today's complaints, Continuance of care, Re-evaluation by your physician Discharge Instructions: - Discharge Summary Sheet [facility] - Peripheral Neuropathy [facility] Forms: - Medication Reconciliation Form [facility] - Thank You Letter [facility] - Antibiotic Education [facility] - Prescription Opioid Use [facility] - Work release form am2 Prescriptions: - Diclofenac Sodium 75 mg Oral Tablet Sustained Release - take 1 tablet by ORAL route 2 times per day; 30 tablet; Refills: 0, Product [facility] Selection Permitted - Medrol (Clifford) 4 mg Oral Tablets, Dose Pack - take 1 tablet by ORAL route as directed - follow package instructions; 1 [facility] packet; Refills: 0, Product Selection Permitted Signatures: Dispatcher [employer] Nico Rodriguez MD MD kdr Mickail, Joel, PA PA jmm Leal, Jahala RN RN jl7 Corrections: (The following items were deleted from the chart) 18:19 14:18 This is a 27 year old male with a history of depression htn that presents to the [facility] ED with complaints of left hand numbness, mainly around the base of his thumb. . [facility]
--- NOTE | 2022-10-25 16:06 | ER ---
Nurse's Notes [facility] Name: Felix Frias Age: 27 yrs Sex: Male : 1995 Arrival Date: 10/25/2022 Time: 13:41 Bed IW1 Private MD: Diagnosis: Peripheral Neuropathy Presentation: 10/25 14:10 Chief complaint: Patient states: Woke with left hand numbness this morning. It's jl7 happened before but normally resolves and this time it hasn't resolved. Coronavirus screen: At this time, the client does not indicate any symptoms associated with coronavirus-19. Ebola Screen: No symptoms or risks identified at this time. Initial Sepsis Screen: Does the patient meet any 2 criteria? No. Patient's initial sepsis screen is negative. Does the patient have a suspected source of infection? No. Patient's initial sepsis screen is negative. Risk Assessment: Do you want to hurt yourself or someone else? Patient reports no desire to harm self or others. Onset of symptoms is unknown. Care prior to arrival: None. 14:10 Method Of Arrival: Ambulatory [facility] 14:10 Acuity: PARISH 4 jl7 Triage Assessment: 14:11 General: Appears in no apparent distress. uncomfortable, Behavior is calm, cooperative, jl7 appropriate for age. Pain: Denies pain. Neuro: Reports numbness in left hand. Historical: - Allergies: 14:11 No Known Allergies; jl7 - Home Meds: 14:11 None [Active]; jl7 - PMHx: 14:11 Depression; Hypertension; jl7 - PSHx: 14:11 None; jl7 - Immunization history:: Client reports receiving the 2nd dose of the Covid vaccine. - Social history:: Smoking status: Patient denies any tobacco usage or history of. Assessment: 14:15 Reassessment: CLIF Jeffries in triage assessing pt. jl7 Vital Signs: 14:10 BP 149 / 100; Pulse 73; Resp 17; Temp 98; Pulse Ox 100% on R/A; Weight 136.08 kg; jl7 Height 5 ft. 5 in. (165.10 cm); Pain 0/10; 14:10 Body Mass Index 49.92 (136.08 kg, 165.10 cm) jl7 ED Course: 13:41 Patient arrived in ED. as 13:52 Mervin Grayson PA is PHCP. [facility] 13:52 Nico Blakely MD is Attending Physician. jmm 14:11 Triage completed. jl7 14:11 Arm band placed on right wrist. jl7 14:44 Hand Left 3 View XRAY In Process Unspecified. EDMS 16:06 Hayden Almanzar MD is Referral Physician. [facility] 16:23 Gilma Clinton, RN is Primary Nurse. ss 16:23 No provider procedures requiring assistance completed. Patient did not have IV access ss during this emergency room visit. Administered Medications: No medications were administered Outcome: 16:06 Discharge ordered by . [facility] 16:23 Discharged to home ambulatory, with family. ss 16:23 Condition: good 16:23 Discharge instructions given to patient, dc instructions given by CLIF Jeffries Instructed on discharge instructions, follow up and referral plans. medication usage, Demonstrated understanding of instructions, follow-up care, medications, Prescriptions given X 2. 16:24 Patient left the ED. ss Signatures: Dispatcher [employer] EDDC Mervin Grayson PA PA jmm Martinez, Amelia as Gilma Clinton, RN RN Stanley Stiles, RN RN jl7
[2022-10-25 17:13] VITALS: BP 149/100; TEMP 98; O2SAT 100
== END 2022-10-25 16:24 | disposition home or self-care (01) ==
LOC: ER 13:40
DX: G62.9 Polyneuropathy, unspecified (principal)
CPT/HCPCS: 99283

== ENCOUNTER 2023-07-19 16:19 | Emergency (ER) | payer SELFPAY ==
[2023-07-19 18:51] LABS: Absolute Lymphocytes (CBC) 2.6 K/uL (0.7-4.9); Hematocrit 45.9 % (39.6-49.0); Lymphocytes % 22.3 % (15.3-44.8); MCV 89.2 fL (80-100); MPV 8.3 fL (7.6-11.3); Platelets 222 thou/uL (152-406); RBC Red Blood Cell Count 5.14 M/uL (4.33-5.43)
[2023-07-19 19:04] LABS: Potassium 3.9 mEq/L (3.5-5.1); Troponin High Sensitivity 4.3 pg/mL (<58.9)
--- NOTE | 2023-07-19 19:24 | EDPHYS ---
Physician Documentation [facility] Name: Felix Frias Age: 28 yrs Sex: Male : 1995 Arrival Date: 07/19/2023 Time: 16:19 Bed 11 Private MD: ED Physician Monique Garcia HPI: 07/19 17:10 This 28 yrs old Male presents to ER via Ambulatory with complaints of cp Breathing Difficulty. 17:10 Patient is a 28-year-old male with past medical history significant for hypertension cp and asthma. Patient denies any current treatment. Patient reports he was at work yesterday and started to have shortness of breath that continued while at home. Patient reports he went to work today and was told to return home and to follow-up with a doctor. Patient denies any chest pain, denies any cough, denies fever. Patient denies any syncopal episode and/or chest pain with exertion. Patient denies any shortness of breath at this time. Historical: - Allergies: 16:52 No Known Allergies; cm10 - PMHx: 16:52 Depression; Hypertension; Asthma; cm10 - Immunization history:: Adult Immunizations unknown. - Social history:: Smoking status: Patient denies any tobacco usage or history of. ROS: 17:15 Respiratory: Positive for shortness of breath, Negative for cough, wheezing. cp 17:15 Constitutional: Negative for body aches, chills, fever, poor PO intake. cp 17:15 Eyes: Negative for injury, pain, redness, and discharge. cp 17:15 ENT: Negative for drainage from ear(s), ear pain, sore throat, difficulty swallowing, difficulty handling secretions. 17:15 Cardiovascular: Negative for chest pain, edema, palpitations. 17:15 Abdomen/GI: Negative for abdominal pain, nausea, vomiting, and diarrhea. 17:15 Back: Negative for pain at rest, pain with movement, radiated pain. 17:15 Neuro: Negative for altered mental status, dizziness, syncope, weakness. 17:15 All other systems are negative. Exam: 17:20 Constitutional: The patient appears in no acute distress, alert, awake, cp non-diaphoretic, non-toxic, well developed, well nourished, obese. 17:20 Head/Face: Normocephalic, atraumatic. cp 17:20 Eyes: Periorbital structures: appear normal, Conjunctiva: normal, no exudate, no injection, Sclera: no appreciated abnormality, Lids and lashes: appear normal, bilaterally. 17:20 ENT: External ear(s): are unremarkable, Nose: is normal, Mouth: Lips: moist, Oral mucosa: pink and intact, moist, Posterior pharynx: is normal, airway is patent, no erythema, no exudate. 17:20 Neck: ROM/movement: is normal, is supple, without pain, no range of motions limitations. 17:20 Chest/axilla: Inspection: normal, Palpation: is normal, no crepitus, no tenderness. 17:20 Cardiovascular: Rate: normal, Rhythm: regular, Heart sounds: murmur, not appreciated, Edema: is not appreciated, JVD: is not appreciated. 17:20 Respiratory: the patient does not display signs of respiratory distress, Respirations: normal, no use of accessory muscles, no retractions, labored breathing, is not present, Breath sounds: are clear throughout, no decreased breath sounds, no stridor, no wheezing. 17:20 Abdomen/GI: Inspection: abdomen appears normal, Bowel sounds: active, all quadrants, Palpation: abdomen is soft and non-tender, in all quadrants. 17:20 Back: pain, is absent, ROM is normal. 17:20 Neuro: Orientation: to person, place \T\ time. Mentation: is normal, Motor: moves all fours, strength is normal, Sensation: is normal. 18:33 ECG was reviewed by the Attending Physician. cp Vital Signs: 16:50 BP 131 / 69; Pulse 72; Resp 18; Temp 98.2; Pulse Ox 100% ; Weight 145.15 kg; Height 5 cm10 ft. 6 in. ; Pain 0/10; 18:55 BP 136 / 62; Pulse 75; Resp 15; Pulse Ox 98% ; Pain 0/10; jl7 19:46 BP 129 / 61; Pulse 71; Resp 18; Pulse Ox 97% on R/A; kl 16:50 Body Mass Index 51.65 (145.15 kg, 167.64 cm) cm10 16:50 Pain Scale: Adult cm10 18:55 Pain Scale: Adult jl7 MDM: 16:59 Patient medically screened. cp 19:22 Data reviewed: vital signs, nurses notes, lab test result(s), EKG, radiologic studies, cp plain films. 19:22 Counseling: I had a detailed discussion with the patient and/or guardian regarding the cp historical points, exam findings, and any diagnostic results supporting the discharge/admit diagnosis, lab results, radiology results, the need for outpatient follow up, a family practitioner, to return to the emergency department if symptoms worsen or persist or if there are any questions or concerns that arise at home. ED course: VSS. Note given to return to work w/o restriction and RX for inhaler. Recommend f/u with pcp if symptoms continues. Low suspicion of cardiac cause as patient denies family hx of sudden cardiac and/or VT before age 40. 07/19 17:03 Order name: Basic Metabolic Panel; Complete Time: 19:17 07/19 19:17 Interpretation: Reviewed. 07/19 17:03 Order name: CBC with Diff; Complete Time: 19:17 07/19 17:03 Order name: NT PRO-BNP; Complete Time: 19:17 07/19 17:03 Order name: Troponin HS; Complete Time: 19:17 07/19 18:49 Order name: XRAY Chest (1 view) 07/19 17:03 Order name: EKG; Complete Time: 17:04 07/19 17:03 Order name: Cardiac monitoring; Complete Time: 18:28 07/19 17:03 Order name: EKG - Nurse/Tech; Complete Time: 18:28 07/19 17:03 Order name: IV Saline Lock; Complete Time: 18:37 07/19 17:03 Order name: Labs collected and sent; Complete Time: 18:37 07/19 17:03 Order name: O2 Per Protocol; Complete Time: 18:16 07/19 17:03 Order name: O2 Sat Monitoring; Complete Time: 18:16 cp EC:33 Rate is 72 beats/min. Rhythm is regular. NE interval is normal. QRS interval is normal. cp QT interval is normal. T waves are Inverted in lead aVR. Interpreted by me. Reviewed by me. Administered Medications: No medications were administered Disposition Summary: 07/19/23 19:23 Discharge Ordered Location: Home cp Problem: new cp Symptoms: have improved cp Condition: Stable cp Diagnosis - Shortness of breath cp Followup: cp - With: Private Physician - When: 2 - 3 days - Reason: Worsening of condition Discharge Instructions: - Discharge Summary Sheet cp - Shortness of Breath, Adult cp - Aspirin and Your Heart cp Forms: - Work release form kl - Medication Reconciliation Form cp - Thank You Letter cp - Antibiotic Education cp - Prescription Opioid Use cp - Patient Portal Instructions cp - Leadership Thank You Letter cp Prescriptions: - albuterol sulfate 90 mcg/actuation Inhalation HFA Aerosol Inhaler - inhale 2 puff by INHALATION route every 4 to 6 hours As needed administer via cp ventilator; 1 unit; Refills: 0, Product Selection Permitted Signatures: Dispatcher [employer] EDMS Claude Hernandez PA PA cp Martinez, Clarissa, RN RN cm10 Corrections: (The following items were deleted from the chart) 07/20 18:36 07/19 17:10 Patient is a 28-year-old male with past medical history significant for cp hypertension and asthma. Patient denies any current treatment. Patient reports he was at work yesterday and after finishing for the day and returning home he was sitting and started to have some shortness of breath. Patient reports he went to work today and was told to return home and to follow-up with a doctor. Patient denies any chest pain, denies any cough, denies fever. Patient denies any syncopal episode and/or chest pain with exertion. Patient denies any shortness of breath at this time. cp
--- NOTE | 2023-07-19 19:24 | ER ---
Nurse's Notes [facility] Name: Felix Frias Age: 28 yrs Sex: Male : 1995 Arrival Date: 07/19/2023 Time: 16:19 Bed 11 Private MD: Diagnosis: Shortness of breath Presentation: 07/19 16:50 Chief complaint: Patient states: shortness of breath onset at work yesterday at work. cm10 Pt states that "the safety lennox at work told me to come get checked out." Pt in NAD in triage. respirations even and unlabored. Pt denies any other symptoms, no sick contacts. Coronavirus screen: Vaccine status: Patient reports receiving the 2nd dose of the covid vaccine. Client denies travel out of the [place] in the last 14 days. Ebola Screen: Patient denies travel to an Ebola-affected area in the 21 days before illness onset. No symptoms or risks identified at this time. Initial Sepsis Screen: Does the patient meet any 2 criteria? No. Patient's initial sepsis screen is negative. Does the patient have a suspected source of infection? No. Patient's initial sepsis screen is negative. Risk Assessment: Do you want to hurt yourself or someone else? Patient reports no desire to harm self or others. Onset of symptoms was July 19, 2023. 16:50 Method Of Arrival: Ambulatory cm10 16:50 Acuity: PARISH 3 cm10 Historical: - Allergies: 16:52 No Known Allergies; cm10 - PMHx: 16:52 Depression; Hypertension; Asthma; cm10 - Immunization history:: Adult Immunizations unknown. - Social history:: Smoking status: Patient denies any tobacco usage or history of. Screenin:15 [facility] ED Fall Risk Assessment (Adult) History of falling in the last 3 months, jl7 including since admission No falls in past 3 months (0 pts) Score/Fall Risk Level 0 - 2 = Low Risk Oriented to surroundings, Maintained a safe environment. Abuse screen: Denies threats or abuse. Denies injuries from another. Nutritional screening: No deficits noted. Tuberculosis screening: No symptoms or risk factors identified. Assessment: 18:15 General: Appears in no apparent distress. uncomfortable, Behavior is calm, cooperative, jl7 appropriate for age. Pain: Denies pain. Neuro: Level of Consciousness is awake, alert, obeys commands, Oriented to person, place, time, situation. Cardiovascular: Patient's skin is warm and dry. Rhythm is regular. Respiratory: Airway is patent Respiratory effort is even, unlabored, Respiratory pattern is regular, symmetrical, Breath sounds are clear. Derm: Skin is pink, warm \\T\\ dry. 19:46 Reassessment: Patient appears in no apparent distress at this time. Patient states kl feeling better. Patient states symptoms have improved. Respiratory: Airway is patent Respiratory effort is even, unlabored, Respiratory pattern is regular, symmetrical. Vital Signs: 16:50 BP 131 / 69; Pulse 72; Resp 18; Temp 98.2; Pulse Ox 100% ; Weight 145.15 kg; Height 5 cm10 ft. 6 in. ; Pain 0/10; 18:55 BP 136 / 62; Pulse 75; Resp 15; Pulse Ox 98% ; Pain 0/10; jl7 19:46 BP 129 / 61; Pulse 71; Resp 18; Pulse Ox 97% on R/A; kl 16:50 Body Mass Index 51.65 (145.15 kg, 167.64 cm) cm10 16:50 Pain Scale: Adult cm10 18:55 Pain Scale: Adult jl7 ED Course: 16:21 Patient arrived in ED. rg4 16:22 Claude Hernandez PA is PHCP. cp 16:22 Monique Garcia MD is Attending Physician. cp 16:52 Triage completed. cm10 16:52 Arm band placed on Patient placed in waiting room. cm10 18:15 Stanley Stiles, RN is Primary Nurse. jl7 18:15 Patient has correct armband on for positive identification. Provided Education on: use jl7 of call wood. 18:39 Initial lab(s) drawn, by me, sent to lab. EKG done, by ED staff, reviewed by Claude vences PA. Inserted saline lock: 20 gauge in left antecubital area, using aseptic technique. Blood collected. 19:04 XRAY Chest (1 view) In Process Unspecified. EDMS 19:46 No provider procedures requiring assistance completed. IV discontinued, intact, kl bleeding controlled, No redness/swelling at site. Pressure dressing applied. Administered Medications: No medications were administered Medication: 18:15 VIS not applicable for this client. jl7 Outcome: 19:23 Discharge ordered by . cp 19:46 Patient left the ED. roel Signatures: Dispatcher [employer] EDMS Mnoique Georges RN Claude Pathak PA PA cp Garcia, Rubi rg4 Stanley Stiles RN RN Sondra Santana RN RN cm10 Corrections: (The following items were deleted from the chart) 18:39 18:15 Inserted saline lock: 20 gauge in left antecubital area, using aseptic technique. vangie Blood collected. vangie 18:39 18:15 Initial lab(s) drawn, by me, sent to lab. EKG done, by ED staff, reviewed by vangie vences
--- NOTE | 2023-07-19 19:51 | RAD REPORT ---
EXAM DESCRIPTION: RAD - Chest Single View - 07/19/2023 7:03 pm CLINICAL HISTORY: SOB Chest pain. COMPARISON: Chest Pa And Lat (2 Views) dated 01/09/2020; Chest Single View dated 02/02/2019; Chest Sin gle View dated 02/01/2019; Chest Single View dated 01/31/2019 FINDINGS: Portable technique limits examination quality. Mildly thickened interstitial lung markings bilaterally could be viral related. No consolidation typi laura of bacterial pneumonia seen. The heart is normal in size. No displaced fractures.
[2023-07-19 20:32] VITALS: BP 131/69; TEMP 98.2; O2SAT 100
--- NOTE | 2023-07-20 13:05 | EKG ---
Test Date: 2023-07-19 Test Time: 18:25:00 Front Elevator Operator: RIGO MEASUREMENT RESULTS: Intervals: Rate: 72 ME: 158 QRSD: 94 QT: 376 QTc: 411 Tama: P: 48 ME: 158 QRS: 36 T: 63 INTERPRETIVE STATEMENTS: Normal sinus rhythm Septal infarct, age undetermined Abnormal ECG Compared to ECG 01/28/2019 21:06:39 Myocardial infarct finding now present Sinus tachycardia no longer present Electronically Signed On 07-20-23 13:03:27 CDT by Sal Ceja
== END 2023-07-19 19:46 | disposition home or self-care (01) ==
LOC: ER 16:19
DX: R06.02 Shortness of breath (principal)
CPT/HCPCS: 36415; 71045; 80048; 83880; 84484; 85025; 93005

== ENCOUNTER 2023-07-22 12:55 | Emergency (ER) | payer SELFPAY ==
[2023-07-22] MEDS ORDERED: ACETAMINOPHEN 500 MG TAB ONE (13:37)
--- NOTE | 2023-07-22 14:26 | EDPHYS ---
Physician Documentation [facility] Name: Felix Frias Age: 28 yrs Sex: Male : 1995 Arrival Date: 07/22/2023 Time: 12:55 Bed 20 Private MD: ED Physician Monique Garcia HPI: 07/22 13:33 This 28 yrs old Male presents to ER via Unassigned with complaints of General sp3 Weakness, Sore Throat, Fever, Nausea. 13:33 28-year-old male with a history of hypertension, asthma who was seen 2 days ago for sp3 upper respiratory symptoms and had a negative chest x-ray and laboratory work-up now presents again for worsening symptoms and fever. Patient states that he has had sick contacts at home who have had strep throat. He is concerned about that primarily but also acknowledges the possibility of COVID-19. Patient denies headache, chest pain, shortness of breath but does endorse cough. He also denies nausea, vomiting, diarrhea, rash, abdominal pain, syncope, near syncope, neurological deficit, or any other concerning signs or symptoms on ROS at this time.. Historical: - Allergies: 13:23 No Known Allergies; mb9 - PMHx: 13:23 Asthma; Depression; Hypertension; mb9 - Immunization history:: Adult Immunizations up to date. - Social history:: Smoking status: Patient denies any tobacco usage or history of. ROS: 13:37 Constitutional: Negative for fever, chills, and weight loss, Eyes: Negative for injury, sp3 pain, redness, and discharge, Neck: Negative for injury, pain, and swelling, Cardiovascular: Negative for chest pain, palpitations, and edema, Abdomen/GI: Negative for abdominal pain, nausea, vomiting, diarrhea, and constipation, Back: Negative for injury and pain, MS/Extremity: Negative for injury and deformity, Skin: Negative for injury, rash, and discoloration, Neuro: Negative for headache, weakness, numbness, tingling, and seizure, Psych: Negative for depression, anxiety, suicide ideation, homicidal ideation, and hallucinations, Allergy/Immunology: Negative for hives, rash, and allergies, Endocrine: Negative for neck swelling, polydipsia, polyuria, polyphagia, and marked weight changes, Hematologic/Lymphatic: Negative for swollen nodes, abnormal bleeding, and unusual bruising. 13:37 All other systems are negative. Exam: 13:37 Constitutional: This is a well developed, well nourished patient who is awake, alert, sp3 and in no acute distress. Head/Face: Normocephalic, atraumatic. Eyes: Pupils equal round and reactive to light, extra-ocular motions intact. Lids and lashes normal. Conjunctiva and sclera are non-icteric and not injected. Cornea within normal limits. Periorbital areas with no swelling, redness, or edema. Neck: Trachea midline, no thyromegaly or masses palpated, and no cervical lymphadenopathy. Supple, full range of motion without nuchal rigidity, or vertebral point tenderness. No Meningismus. Chest/axilla: Normal chest wall appearance and motion. Nontender with no deformity. No lesions are appreciated. Cardiovascular: Regular rate and rhythm with a normal S1 and S2. No gallops, murmurs, or rubs. Normal PMI, no JVD. No pulse deficits. Respiratory: Lungs have equal breath sounds bilaterally, clear to auscultation and percussion. No rales, rhonchi or wheezes noted. No increased work of breathing, no retractions or nasal flaring. Abdomen/GI: Soft, non-tender, with normal bowel sounds. No distension or tympany. No guarding or rebound. No evidence of tenderness throughout. Back: No spinal tenderness. No costovertebral tenderness. Full range of motion. Skin: Warm, dry with normal turgor. Normal color with no rashes, no lesions, and no evidence of cellulitis. MS/ Extremity: Pulses equal, no cyanosis. Neurovascular intact. Full, normal range of motion. Neuro: Awake and alert, GCS 15, oriented to person, place, time, and situation. Cranial nerves II-XII grossly intact. Motor strength 5/5 in all extremities. Sensory grossly intact. Cerebellar exam normal. Normal gait. Psych: Awake, alert, with orientation to person, place and time. Behavior, mood, and affect are within normal limits. 13:37 ENT: Mildly erythematous posterior oropharynx. Vital Signs: 13:22 BP 124 / 64; Pulse 88; Resp 18; Temp 100.6(O); Pulse Ox 100% on R/A; mb9 14:36 BP 121 / 68; Pulse 84; Resp 18; Temp 99.1; Pulse Ox 100% on R/A; mb9 MDM: 13:18 Patient medically screened. sp3 13:37 Data reviewed: vital signs, nurses notes, old medical records, lab test result(s). ED sp3 course: 28-year-old male with URI symptoms. Work-up from 2 days ago reviewed. Today will obtain swabs for strep, COVID and flu. If all swabs are negative we will prophylactically place him on antibiotics and discharged home with PCP follow-up.. 14:20 ED course: Swabs are negative. Will place on Augmentin as prophylaxis given his sp3 exposure and red throat. Patient will be discharged home at this time.. 07/22 13:07 Order name: SARS-COV-2 RT PCR; Complete Time: 14:20 sp3 07/22 13:07 Order name: Flu; Complete Time: 14:20 sp3 07/22 13:07 Order name: Strep sp3 07/22 14:19 Order name: Throat Culture EDMS Administered Medications: 13:29 Drug: Acetaminophen PO 1000 mg Route: PO; mb9 14:38 Follow up: Response: No adverse reaction mb9 Disposition Summary: 07/22/23 14:26 Discharge Ordered Location: Home sp3 Condition: Stable sp3 Diagnosis - Pharyngitis sp3 Followup: sp3 - With: Private Physician - When: Upon discharge from the Emergency Department - Reason: Continuance of care Discharge Instructions: - Discharge Summary Sheet sp3 - Pharyngitis sp3 Forms: - Medication Reconciliation Form sp3 - Thank You Letter sp3 - Antibiotic Education sp3 - Prescription Opioid Use sp3 - Patient Portal Instructions sp3 - Leadership Thank You Letter sp3 - Work release form mb9 Prescriptions: - Augmentin 875-125 mg Oral Tablet - take 1 tablet by ORAL route every 12 hours for 10 days; 14 tablet; Refills: 0, sp3 Product Selection Permitted Signatures: Dispatcher [employer] Monique Sands MD MD sp3 Ashley Lyons RN RN mb9
--- NOTE | 2023-07-22 14:26 | ER ---
Nurse's Notes [facility] Name: Felix Frias Age: 28 yrs Sex: Male : 1995 Arrival Date: 07/22/2023 Time: 12:55 Bed 20 Private MD: Diagnosis: Pharyngitis Presentation: 07/22 13:14 Chief complaint: Patient states: Sore throat, chills, headache and nausea since nj1 yesterday. Took Advil with little relief. Niece recently diagnosed with strep. 13:14 Coronavirus screen: Vaccine status: Patient reports receiving the 2nd dose of the covid nj1 vaccine. Ebola Screen: Patient denies travel to an Ebola-affected area in the 21 days before illness onset. Initial Sepsis Screen: Does the patient meet any 2 criteria? No. Patient's initial sepsis screen is negative. Does the patient have a suspected source of infection? No. Patient's initial sepsis screen is negative. Risk Assessment: Do you want to hurt yourself or someone else? Patient reports no desire to harm self or others. Onset of symptoms was July 21, 2023. 13:14 Method Of Arrival: Ambulatory [facility] 13:14 Acuity: PARISH 4 nj1 Historical: - Allergies: 13:23 No Known Allergies; mb9 - PMHx: 13:23 Asthma; Depression; Hypertension; mb9 - Immunization history:: Adult Immunizations up to date. - Social history:: Smoking status: Patient denies any tobacco usage or history of. Screenin:23 [facility] ED Fall Risk Assessment (Adult) History of falling in the last 3 months, mb9 including since admission No falls in past 3 months (0 pts) Confusion or Disorientation No (0 pts) Intoxicated or Sedated No (0 pts) Impaired Gait No (0 pts) Mobility Assist Device Used No (0 pt) Altered Elimination No (0 pt) Score/Fall Risk Level 0 - 2 = Low Risk Oriented to surroundings, Maintained a safe environment, Educated pt \T\ family on fall prevention, incl call for assistance when getting out of bed. Abuse screen: Denies threats or abuse. Nutritional screening: No deficits noted. Tuberculosis screening: No symptoms or risk factors identified. Assessment: 13:22 General: Appears uncomfortable, Behavior is calm, cooperative. Pain: Denies pain. mb9 Neuro: [place] Agitation-Sedation Scale (RASS): 0 - Alert and Calm Level of Consciousness is awake, alert, obeys commands, Oriented to person, place, time, situation, Appropriate for age. Cardiovascular: Patient's skin is warm and dry. Respiratory: Airway is patent Respiratory effort is even, unlabored, Respiratory pattern is regular, symmetrical, Breath sounds are clear bilaterally. GI: Abdomen is obese, Bowel sounds present X 4 quads. Abd is soft and non tender X 4 quads. Reports diarrhea, nausea. : No signs and/or symptoms were reported regarding the genitourinary system. EENT: Throat is reddened. Derm: Skin is intact, Skin is dry, Skin is normal, Skin temperature is hot. Musculoskeletal: Range of motion: intact in all extremities. 14:20 Reassessment: No changes from previously documented assessment. Patient and/or family mb9 updated on plan of care and expected duration. Pain level reassessed. Patient is alert, oriented x 3, equal unlabored respirations, skin warm/dry/pink. Vital Signs: 13:22 BP 124 / 64; Pulse 88; Resp 18; Temp 100.6(O); Pulse Ox 100% on R/A; mb9 14:36 BP 121 / 68; Pulse 84; Resp 18; Temp 99.1; Pulse Ox 100% on R/A; mb9 ED Course: 12:58 Patient arrived in ED. mg5 13:00 Monique Garcia MD is Attending Physician. sp3 13:11 Ashley Lyons, RN is Primary Nurse. mb9 13:22 Strep Sent. mb9 13:22 Flu Sent. mb9 13:22 SARS-COV-2 RT PCR Sent. mb9 13:22 Arm band placed on. mb9 13:24 Bed in low position. Call light in reach. Side rails up X 1. Client placed on mb9 continuous cardiac and pulse oximetry monitoring. NIBP monitoring applied. 14:42 No provider procedures requiring assistance completed. Patient did not have IV access mb9 during this emergency room visit. 14:43 Triage completed. mb9 Administered Medications: 13:29 Drug: Acetaminophen PO 1000 mg Route: PO; mb9 14:38 Follow up: Response: No adverse reaction mb9 Medication: 13:23 VIS not applicable for this client. mb9 Outcome: 14:26 Discharge ordered by . sp3 14:43 Discharged to home ambulatory. mb9 14:43 Condition: stable 14:43 Discharge instructions given to patient, Instructed on discharge instructions, follow up and referral plans. Demonstrated understanding of instructions, follow-up care, medications, Prescriptions given X 1. 14:43 Patient left the ED. mb9 Signatures: Monique Garcia MD MD sp3 Ashley Lyons RN RN mb9 Zaria Gonzalez RN RN nj1 Darya Morrissey mg5 Corrections: (The following items were deleted from the chart) 14:42 13:14 Initial Sepsis Screen: Does the patient meet any 2 criteria? No. Patient's nj1 initial sepsis screen is negative. Does the patient have a suspected source of infection? No. Patient's initial sepsis screen is negative. nj1 14:43 14:43 Acuity: PARISH 4 mb9 nj1
[2023-07-22 14:59] VITALS: O2SAT 100
[2023-07-22 15:00] VITALS: BP 121/68; TEMP 99.1
== END 2023-07-22 14:43 | disposition home or self-care (01) ==
LOC: ER 12:55
DX: J02.9 Acute pharyngitis, unspecified (principal); Z20.822 Contact with and (suspected) exposure to COVID-19
CPT/HCPCS: 87070; 87081; 87635; 87804; 99284

== ENCOUNTER 2023-10-15 07:18 | Observation (INO) | payer SELFPAY ==
[2023-10-15] MEDS ORDERED: TDAP (DIPHTH,PERTUSS(ACELL),TET VAC) 0.5 ML VIAL IMVAC ONE (08:40)
[2023-10-15] MEDS ORDERED: NA CHLORIDE 0.9% 1,000 ML ONE (08:40)
[2023-10-15] MEDS ORDERED: MORPHINE 4 MG/ML SYR ONE (08:40)
[2023-10-15 08:53] LABS: Absolute Lymphocytes (CBC) 2.3 K/uL (0.7-4.9); Hematocrit 46.8 % (39.6-49.0); Lymphocytes % 15.5 % (15.3-44.8); MCV 89.9 fL (80-100); MPV 7.7 fL (7.6-11.3); Platelets 285 thou/uL (152-406)
--- NOTE | 2023-10-15 08:53 | RAD REPORT ---
EXAM DESCRIPTION: US - Extremity Nonvascular Complete - 10/15/2023 8:31 am CLINICAL HISTORY: Pain;Swelling COMPARISON: No comparisons TECHNIQUE: Real-time sonographic evaluation of the area of interest was performed. FINDINGS: Heterogenous 5.0 x 1.7 cm collection is present in the area of palpable abnormality left a xilla. There is increased blood flow in the surrounding tissues. Although nonspecific, this probably represents subcutaneous abscess.
--- NOTE | 2023-10-15 09:11 | EDPHYS ---
Physician Documentation [facility] Name: Felix Frias Age: 28 yrs Sex: Male : 1995 Arrival Date: 10/15/2023 Time: 07:18 Bed 14 Private MD: None, None ED Physician Monique Garcia HPI: 10/15 07:59 This 28 yrs old Male presents to ER via Ambulatory with complaints of knot snw underarm. 07:59 Onset: The symptoms/episode began/occurred acutely, 10 day(s) ago, and became worse. snw Modifying factors: the patient symptoms are aggravated by pressure. The patient has not experienced similar symptoms in the past, but family has similar symptoms, significant other. The patient has not recently seen a physician, and does not have an established primary care provider. Historical: - Allergies: 07:30 No Known Allergies; ll1 - PMHx: 07:30 Asthma; Depression; Hypertension; ll1 - PSHx: 07:30 None; ll1 - Immunization history:: Adult Immunizations up to date. - Social history:: Smoking status: Patient denies any tobacco usage or history of. ROS: 07:59 Constitutional: Negative for fever, chills, and weight loss, Eyes: Negative for injury, snw pain, redness, and discharge, ENT: Negative for injury, pain, and discharge, Neck: Negative for injury, pain, and swelling, Cardiovascular: Negative for chest pain, palpitations, and edema, Respiratory: Negative for shortness of breath, cough, wheezing, and pleuritic chest pain, Abdomen/GI: Negative for abdominal pain, nausea, vomiting, diarrhea, and constipation, Back: Negative for injury and pain, : Negative for injury, bleeding, discharge, and swelling, MS/Extremity: Negative for injury and deformity, Neuro: Negative for headache, weakness, numbness, tingling, and seizure, Psych: Negative for depression, anxiety, suicide ideation, homicidal ideation, and hallucinations, 07:59 Skin: Positive for abscess, of the left axilla, Exam: 07:57 Constitutional: This is a well developed, obese patient who is awake, alert, and in no snw acute distress. Head/Face: Normocephalic, atraumatic. Eyes: Pupils equal round and reactive to light, extra-ocular motions intact. Lids and lashes normal. Conjunctiva and sclera are non-icteric and not injected. Cornea within normal limits. Periorbital areas with no swelling, redness, or edema. ENT: Nares patent. No nasal discharge, no septal abnormalities noted. Tympanic membranes are normal and external auditory canals are clear. Oropharynx with no redness, swelling, or masses, exudates, or evidence of obstruction, uvula midline. Mucous membranes moist. Neck: Trachea midline, no thyromegaly or masses palpated, and no cervical lymphadenopathy. Supple, full range of motion without nuchal rigidity, or vertebral point tenderness. No Meningismus. Chest/axilla: Normal chest wall appearance and motion. Nontender with no deformity. No lesions are appreciated. Cardiovascular: Regular rate and rhythm with a normal S1 and S2. No gallops, murmurs, or rubs. Normal PMI, no JVD. No pulse deficits. Respiratory: Lungs have equal breath sounds bilaterally, clear to auscultation and percussion. No rales, rhonchi or wheezes noted. No increased work of breathing, no retractions or nasal flaring. Abdomen/GI: Soft, non-tender, with normal bowel sounds. No distension or tympany. No guarding or rebound. No evidence of tenderness throughout. Back: No spinal tenderness. No costovertebral tenderness. Full range of motion. MS/ Extremity: Pulses equal, no cyanosis. Neurovascular intact. Full, normal range of motion. Neuro: Awake and alert, GCS 15, oriented to person, place, time, and situation. Cranial nerves II-XII grossly intact. Motor strength 5/5 in all extremities. Sensory grossly intact. Cerebellar exam normal. Normal gait. Psych: Awake, alert, with orientation to person, place and time. Behavior, mood, and affect are within normal limits. 07:57 Skin: abscess, that is moderate sized, of the left axilla, with induration, Vital Signs: 07:30 BP 133 / 82; Pulse 85; Resp 18; Temp 98.8; Pulse Ox 100% on R/A; Weight 136.08 kg; ll1 Height 5 ft. 6 in. ; Pain 7/10; 09:15 BP 130 / 77; Pulse 86; Resp 14; Pulse Ox 98% ; ko1 07:30 Body Mass Index 48.42 (136.08 kg, 167.64 cm) ll1 07:30 Pain Scale: Adult ll1 MDM: 07:47 Patient medically screened. snw 09:07 Differential diagnosis: bacterial infection, abscess, LAD. Data reviewed: vital signs, snw nurses notes, lab test result(s), radiologic studies. Management of patient was discussed with the following: Hospitalist: To admit under Dr. Hassan. Technical Support Consultant: Dr. Son recommends admission to Hospitalist group, NPO post MN, will see in am. I considered the following discharge prescriptions or medication management in the emergency department Medications were administered in the Emergency Department. See MAR. Care significantly affected by the following chronic conditions: Hypertension, Obesity, Asthma. Counseling: I had a detailed discussion with the patient and/or guardian regarding the historical points, exam findings, and any diagnostic results supporting the discharge/admit diagnosis, lab results, radiology results, the need for further work-up and treatment in the hospital. 10/15 07:57 Order name: CBC with Diff; Complete Time: 09:00 snw 10/15 07:57 Order name: Blood Culture Adult (2) snw 10/15 07:57 Order name: CMP; Complete Time: 09:17 snw 10/15 10:25 Order name: Hemoglobin A1c EDMS 10/15 10:25 Order name: Magnesium; Complete Time: : EDMS 10/15 10:25 Order name: Phosphorus; Complete Time: : EDMS 10/15 10:25 Order name: Urinalysis w/ reflexes EDMS 10/15 10:25 Order name: Basic Metabolic Panel EDMI 10/15 10:25 Order name: Basic Metabolic Panel EDMI 10/15 10:25 Order name: CBC with Automated Diff EDMS 10/15 10:25 Order name: CBC with Automated Diff EDMS 10/15 10:25 Order name: Lipid Profile EDMS 10/15 10:25 Order name: Lipid Profile EDMS 10/15 08:32 Order name: Extremity Nonvascular Complete; Complete Time: 09:00 EDMS 10/15 10:15 Order name: CONS Physician Consult EDMS 10/15 07:57 Order name: NPO; Complete Time: 08:24 snw Administered Medications: 08:45 Drug: morphine IVP or IV 4 mg IVP once over 4 mins Route: IVP; Infused Over: 4 mins; kc6 Site: right antecubital; 08:45 Drug: Boostrix Tdap IM 0.5 ml IM once; as a single dose Route: IM; Site: left deltoid; kc6 09:09 Drug: NS 0.9% IV 1000 ml IV at 125 ml/hr continuous Route: IV; Rate: 125 ml/hr; Site: ko1 right antecubital; 09:32 Drug: vancoMYCIN IVPB 1.5 grams IVPB at calculated rate once Route: IVPB; Rate: ko1 calculated rate; Site: right antecubital; Disposition Summary: 10/15/23 09:10 Hospitalization Ordered Notes: Hospitalization Status: Inpatient Admission snw Provider: Jai Hassan snw Condition: Stable snw Problem: new snw Symptoms: are unchanged snw Bed/Room Type: Standard snw Location: Telemetry/MedSurg (Inpatient)(10/15/23 10:20) em1 Room Assignment: 219(10/15/23 10:20) em1 Diagnosis - Local infection of the skin and subcutaneous tissue, unspecified - left axilla snw Forms: - Medication Reconciliation Form snw - SBAR form snw - Leadership Thank You Letter snw Signatures: Dispatcher [employer] EDMS Milena Orellana FNP-C CONSULTING SERVICES PROJECT MANAGER-CsnDelmar Damon em1 Reggie Georges, RN RN ll1 Kathrine Felipe RN RN kc6 Lisandra Méndez RN RN ko1 Corrections: (The following items were deleted from the chart) 08:32 07:57 [employer]rm[employer]+US.RAD.BRZ ordered. EDMS EDMS 10:17 09:10 Telemetry/MedSurg (Inpatient) snw em1 10:17 09:10 snw em1 10:20 10:17 [facility] ER HOLD em1 em1 10:20 10:17 ERHOLD- em1 em1
--- NOTE | 2023-10-15 09:11 | ER ---
Nurse's Notes [facility] Name: Felix Frias Age: 28 yrs Sex: Male : 1995 Arrival Date: 10/15/2023 Time: 07:18 Bed 14 Private MD: None, None Diagnosis: Local infection of the skin and subcutaneous tissue, unspecified-left axilla Presentation: 10/15 07:30 Chief complaint: Patient states: Pain, swelling, redness to L axilla for 1 week getting ll1 progressively worse. Coronavirus screen: Vaccine status: Patient reports receiving the 2nd dose of the covid vaccine. Client denies travel out of the [place] in the last 14 days. At this time, the client does not indicate any symptoms associated with coronavirus-19. Ebola Screen: Patient denies travel to an Ebola-affected area in the 21 days before illness onset. Initial Sepsis Screen: Does the patient meet any 2 criteria? No. Patient's initial sepsis screen is negative. Does the patient have a suspected source of infection? Yes: Skin breakdown/wound. Risk Assessment: Do you want to hurt yourself or someone else? Patient reports no desire to harm self or others. Onset of symptoms was October 08, 2023. 07:30 Method Of Arrival: Ambulatory ll1 07:30 Acuity: PARISH 4 ll1 Historical: - Allergies: 07:30 No Known Allergies; ll1 - PMHx: 07:30 Asthma; Depression; Hypertension; ll1 - PSHx: 07:30 None; ll1 - Immunization history:: Adult Immunizations up to date. - Social history:: Smoking status: Patient denies any tobacco usage or history of. Screenin:31 [facility] ED Fall Risk Assessment (Adult) History of falling in the last 3 months, kc6 including since admission No falls in past 3 months (0 pts) Confusion or Disorientation No (0 pts) Intoxicated or Sedated No (0 pts) Impaired Gait No (0 pts) Mobility Assist Device Used No (0 pt) Altered Elimination No (0 pt) Score/Fall Risk Level 0 - 2 = Low Risk. Abuse screen: Denies threats or abuse. Denies injuries from another. Nutritional screening: No deficits noted. Tuberculosis screening: No symptoms or risk factors identified. Assessment: 09:15 General: Appears in no apparent distress. uncomfortable, Behavior is calm, cooperative, ko1 appropriate for age. Pain: Complains of pain in left axilla. Neuro: No deficits noted. Cardiovascular: No deficits noted. Respiratory: No deficits noted. GI: No deficits noted. : No deficits noted. EENT: No deficits noted. Derm: No deficits noted. Musculoskeletal: No deficits noted. 10:27 Reassessment: Attempted to call report, spoke with Christina, they dont know who is getting ko1 the patient but will call me back. Vital Signs: 07:30 BP 133 / 82; Pulse 85; Resp 18; Temp 98.8; Pulse Ox 100% on R/A; Weight 136.08 kg; ll1 Height 5 ft. 6 in. ; Pain 7/10; 09:15 BP 130 / 77; Pulse 86; Resp 14; Pulse Ox 98% ; ko1 07:30 Body Mass Index 48.42 (136.08 kg, 167.64 cm) ll1 07:30 Pain Scale: Adult ll1 ED Course: 07:20 Patient arrived in ED. as 07:22 None, None is Private Physician. as 07:30 Arm band placed on Patient placed in an exam room, on a stretcher. ll1 07:32 Triage completed. ll1 07:36 Monique Garcia MD is Attending Physician. sp3 07:46 Milena Orellana FNP-C is PHCP. snw 07:46 Monique Garcia MD is Attending Physician. snw 08:24 Kathrine Felipe, MICHELLE is Primary Nurse. kc6 08:31 Patient has correct armband on for positive identification. Bed in low position. Call kc6 light in reach. Side rails up X 1. Client placed on continuous cardiac and pulse oximetry monitoring. NIBP monitoring applied. 08:31 Patient maintains SpO2 saturation greater than 95% on room air. kc6 08:32 Extremity Nonvascular Complete In Process Unspecified. EDMS 08:45 CMP Sent. kc6 08:45 CBC with Diff Sent. kc6 08:45 Inserted saline lock: 20 gauge in right antecubital area, using aseptic technique. kc6 Blood collected. 08:46 Report given to Lisandra Méndez RN. kc6 09:10 Jai Hassan MD is Hospitalizing Provider. snw 09:15 Provided Education on: hospitalize, antibiotics. ko1 09:15 No provider procedures requiring assistance completed. Patient admitted, IV remains in ko1 place. Administered Medications: 08:45 Drug: morphine IVP or IV 4 mg IVP once over 4 mins Route: IVP; Infused Over: 4 mins; kc6 Site: right antecubital; 08:45 Drug: Boostrix Tdap IM 0.5 ml IM once; as a single dose Route: IM; Site: left deltoid; kc6 09:09 Drug: NS 0.9% IV 1000 ml IV at 125 ml/hr continuous Route: IV; Rate: 125 ml/hr; Site: ko1 right antecubital; 09:32 Drug: vancoMYCIN IVPB 1.5 grams IVPB at calculated rate once Route: IVPB; Rate: ko1 calculated rate; Site: right antecubital; Medication: 09:15 VIS not applicable for this client. ko1 Outcome: 09:10 Decision to Hospitalize by Provider. snw 10:51 Admitted to Med/surg accompanied by tech, via stretcher, room 219, with chart, Report ko1 called to MICHELLE Olivas 10:51 Condition: stable 10:51 Instructed on the need for admit, Demonstrated understanding of instructions, 11:27 Patient left the ED. ko1 Signatures: Dispatcher [employer] EDMS Milena Orellana, DRAFTER CASTINGS-C DRAFTER CASTINGS-CsnKimberly Damon Lynsay, RN RN ll1 Monique Garcia MD MD sp3 Kathrine Felipe RN RN kc6 Lisandra Méndez RN RN ko1
[2023-10-15 09:15] LABS: Albumin 3.8 g/dL (3.4-5.0); Bilirubin Total 0.3 mg/dL (0.2-1.0); Potassium 3.6 mEq/L (3.5-5.1); Protein, Total 8.5 g/dL (6.4-8.2)
[2023-10-15] MEDS ORDERED: VANCOMYCIN 1.5 GM in NA CHLORIDE 0.9% 500 ML IVPB ONE (09:30)
[2023-10-15] MEDS ORDERED: ACETAMINOPHEN 325 MG TABLET PO PRN (10:12)
[2023-10-15] MEDS ORDERED: ONDANSETRON 4 MG/2 ML VIAL IV PRN (10:22)
--- NOTE | 2023-10-15 10:25 | P.HP ---
Certification for Inpatient Patient admitted to: Observation With expected LOS: <2 Midnights Patient will require the following post-hospital care: None Practitioner: I am a practitioner with admitting privileges, knowledge of patient current condition, hospital course, and medical plan of care. Services: Services provided to patient in accordance with Admission requirements found in Title 42 Section 412.3 of the Code of Federal Regulations Patient History Date of Service: 10/15/23 Reason for admission: Left axilla abscess. History of Present Illness: Patient is a 28-year-old male with a past medical history significant for asthma, depression, hypertension who presents with complaint of left anterior swelling\redness\pain. Patient reported that he noticed an induration in the left axilla 1 week ago with associated signs and symptoms of burning pain. Thereafter patient started experiencing swelling, redness and increased pain. Symptoms became worse over time. Patient rated pain as 7/10 in severity and described pain as burning in quality. Patient reported associated signs and symptoms of chills, headache and itching in the left axilla. Patient denies any other signs and symptoms. Symptoms are aggravated or relieved by nothing. Patient decided to present to the hospital due to worsening symptoms. Allergies No Known Allergies Allergy (Unverified 01/29/19 08:14) Home Medications: Amox/Clavulanate [Augmentin 875-125 Tab*] 875 mg PO BID #14 tab 02/02/19 Thiamine HCl [Vitamin B-1*] 100 mg PO DAILY #30 tablet 02/02/19 - Past Medical/Surgical History Diabetic: No -: suicidal attempt -: depression -: Asthma -: HTN -: Morbid Obesity Past Surgical History: Patient denies surgical history - Family History Father -: Hypertension Mother -: Hypertension - Social History Smoking Status: Former smoker Alcohol use: No CD- Drugs: No Caffeine use: No Place of Residence: Home Review of Systems General: Chills Eyes: Unremarkable ENT: Unremarkable Respiratory: Unremarkable Cardiovascular: Unremarkable Gastrointestinal: Unremarkable Genitourinary: Unremarkable Musculoskeletal: Other (Left axila swelling\pain ) Integumentary: Other (Left axila swelling\redness) Neurological: Unremarkable Lymphatics: Unremarkable Physical Examination - Physical Exam General: Alert, In no apparent distress, Oriented x3, Cooperative HEENT: Atraumatic, PERRLA, Mucous membr. moist/pink, EOMI, Sclerae nonicteric Neck: Supple, 2+ carotid pulse no bruit, No LAD, Without JVD or thyroid abnormality Respiratory: Clear to auscultation bilaterally, Normal air movement Cardiovascular: No edema, Regular rate/rhythm, Normal S1 S2 Capillary refill: <2 Seconds Gastrointestinal: Normal bowel sounds, Non-distended, No tenderness Musculoskeletal: No clubbing, No swelling, No tenderness Integumentary: No rashes, Tenderness/swelling, Erythema, Other (Left axila swelling\redness) Neurological: Normal gait, Normal speech, Normal strength at 5/5 x4 extr, Normal tone, Normal affect Lymphatics: No axilla or inguinal lymphadenopathy - Studies Laboratory Data (last 24 hrs) 10/15/23 10/15/23 08:43 08:43 WBC 14.80 H Hgb 15.9 Hct 46.8 Plt Count 285 Sodium 138 Potassium 3.6 BUN 8 Creatinine 0.83 Glucose 103 Total Bilirubin 0.3 AST 18 ALT 46 Alkaline Phosphatase 116 Assessment and Plan - Plan --Left axilla abscess\cellulitis. Imaging indicates Heterogenous 5.0 x 1.7 cm collection is present in the area of palpable abnormality left axilla. There is increased blood flow in the surrounding tissues. Although nonspecific, this probably represents subcutaneous abscess. Patient placed on antibiotics. Blood cultures pending. Surgery consulted. Plans possible I&D in a.m. We will keep patient n.p.o. after midnight. We will await further recommendation from surgeon. --Leukocytosis. Likely secondary to left axilla abscess. Blood cultures pending. Continue antibiotics. We will continue monitor WBC levels. --Acute pain. We will manage pain with current pain medication regimen. --Asthma. Stable. Continue home medication. --Morbid obesity. Likely secondary to excess calories intake. Patient counseled on weight reduction, diet and excise therapy. --Hypertension. Stable. We will manage BP with hydralazine as needed. --Headache. Tylenol as needed. --History of suicide attempt\depression. Continue home medication. --DVT prophylaxis with SCDs. Discharge Plan: Home Plan to discharge in: 48 Hours - Advance Directives Does patient have a Living Will: No Does patient have a Durable POA for Healthcare: No - Code Status/Comfort Care Code Status Assessed: Yes Physician Review: Patient Assessed, Agree with Above Assessment and Plan Critical Care: No
[2023-10-15] MEDS ORDERED: VANCOMYCIN 1 GM in NA CHLORIDE 0.9% 250 ML IVPB SCH (11:00)
[2023-10-15] MEDS ORDERED: VANCOMYCIN 500 MG in NA CHLORIDE 0.9% 100 ML IVPB ONE ×2 (11:15→11:50)
[2023-10-15 11:18] LABS: Magnesium 2.4 mg/dL (1.6-2.4); Phosphorus 3.2 mg/dL (2.5-4.9)
[2023-10-15 11:41] VITALS: BMI 49.0
[2023-10-15] MEDS: CEFEPIME 1 GM in NA CHLORIDE 0.9% 100 ML IV SCH ×2 (14:06→21:25)
[2023-10-15] MEDS: MORPHINE 4 MG/ML SYR IV PRN (14:17)
--- NOTE | 2023-10-15 20:01 | CON ---
Date of Consultation: 10/15/2023 Reason For Service: Left axillary cellulitis, possible abscess. Indication: This is the case of a 28-year-old person, who came with induration of the axillary regio n about a week ago. It increased in size, so we decided to come to the ER today, diagnosed with an a xillary cellulitis, possible abscess. He recalled his girlfriend has the same problem before about 3 -4 weeks ago, which she required incision and drainage of the thigh abscess, found to have MRSA. The y live together. Allergies: NO KNOWN ALLERGIES. Medications: Augmentin, thiamine. Past Medical History: Include, depression, asthma, hypertension, morbid obesity. Family History: Hypertension. Social History: He does not smoke. He does not drink alcohol. Review of Systems: Axillary redness, tenderness. He feels better already compared with this morning. Review of systems , 10 points otherwise unremarkable. No fever. Physical Examination: Vital Signs: Stable. The patient is awake, alert. Pupils are equal and reactive. Anicteric. Neck: Supple. Chest: Clear. Heart: S1, S2. Abdomen: Soft and depressible. Extremities: Good capillary refill. Axillary area, there is induration of the left axillary region. Cellulitis present, no blisters formed. There is an induration deep in the axilla, which probably represent what they described as a possible abscess. Assessment And Plan: Left axillary cellulitis and abscess. The patient has asked me right now to e if I can do without an incision and drainage and I explained to him the findings with the celluliti s, even though he might be able to do it on his own, at this moment it is too early to determine that . He has the option of incision and drainage of axillary abscess with benefits, alternatives, and ri sks including, but not limited to infection, bleeding, damage to adjacent structures, anesthesia comp lication, nonhealing wound, [place], and even . He is also afraid about a packing since the girlfrie mervin has just been doing it for the last 3 weeks and he is trying to avoid that process, but at the [facility] e time, sometimes it is the best way to go, so he asked me to until tomorrow morning to e if he improves and he will make the decision if he is going to let me do the I and D. The benefits , alternatives, and risks were fully explained again. MODE/CEDRICK Voice ID: [id number] Report ID: [id number]
[2023-10-15] MEDS ORDERED: NA CHLORIDE 0.9% 100 ML ONE ×2 (22:00→23:00)
[2023-10-15] MEDS: VANCOMYCIN 2 GM in NA CHLORIDE 0.9% 500 ML IVPB SCH (22:13)
[2023-10-16 03:22] LABS: Absolute Lymphocytes (CBC) 2.3 K/uL (0.7-4.9); Lymphocytes % 16.8 % (15.3-44.8); MCV 90.7 fL (80-100); MPV 8.6 fL (7.6-11.3); Platelets 272 thou/uL (152-406); RBC Red Blood Cell Count 4.52 M/uL (4.33-5.43)
[2023-10-16 03:43] LABS: Potassium 3.6 mEq/L (3.5-5.1)
--- NOTE | 2023-10-16 07:32 | P.PN ---
Subjective Date of Service: 10/16/23 (Hospitalist) Chief Complaint: Left axilla abscess. Subjective: Improving (Patient is 28 years of age admitted with a left axillary abscess for the past 10 days his pain and swelling has declined since admission no other complaint) Review of Systems Unremarkable Physical Examination - Vital Signs Temperature: 97.7 F Blood Pressure: 131/75 Pulse: 79 Respirations: 16 Pulse Ox (%): 96 - Physical Exam General: Alert, In no apparent distress, Oriented x3 Respiratory: Clear to auscultation bilaterally Cardiovascular: No edema Integumentary: Other (Patient has a left axillary abscess tender approximately 6 cm) - Studies Laboratory Data (last 24 hrs) 10/15/23 10/15/23 10/15/23 08:43 08:43 08:43 WBC 14.80 H Hgb 15.9 Hct 46.8 Plt Count 285 Sodium 138 Potassium 3.6 BUN 8 Creatinine 0.83 Glucose 103 Phosphorus 3.2 Magnesium 2.4 Total Bilirubin 0.3 AST 18 ALT 46 Alkaline Phosphatase 116 Assessment And Plan - Current Problems (Diagnosis) (1) Cutaneous abscess of left axilla Current Visit: Yes Status: Acute Plan: Patient is 28 years of age admitted with an axillary abscess for the past 10 day s he is improving changed to Zosyn and continue with vancomycin General surgical consult/white count is declining subjectively improving Ultrasound FINDINGS: Heterogenous 5.0 x 1.7 cm collection is present in the area of palpable abnormality left axilla. There is increased blood flow in the surrounding tissues. Although nonspecific, this probably represents subcutaneous abscess Physician Review: Patient Assessed, Agree with Above Assessment and Plan
[2023-10-16] MEDS: PIPER TAZO 3.375 GM in NA CHLORIDE 0.9% 100 ML IV SCH ×2 (08:29→18:02)
[2023-10-16] MEDS ORDERED: POTASSIUM 25 MEQ EFFERV TAB PO ONE (09:00)
[2023-10-16] MEDS: MORPHINE 4 MG/ML SYR IV PRN ×2 (09:49→18:43)
[2023-10-16] MEDS: VANCOMYCIN 2 GM in NA CHLORIDE 0.9% 500 ML IVPB SCH ×2 (12:07→23:57)
--- NOTE | 2023-10-16 15:28 | PN ---
Date of Progress Note: 10/16/2023 Diagnoses: Left axillary abscess, cellulitis, morbid obesity. Subjective: Patient is doing well. No complaint. He claimed the area of the redness trying to get a little better. He asked me today for a day to see if we can do without any I and D. I believe he is improving, but I asked him to be n.p.o. after midnight in case if by tomorrow, the area that we id entified today are not completely resolved, I believe he will be better served with incision and maya valencia and that would only make it improve faster, but minimize unnecessary antibiotics for a long term care phlebotomist . He has no fever today. Objective: Chest: Clear. Abdomen: Soft and depressible. Plan: The benefits, alternatives, and risks of the incision and drainage were fully explained to the patient, which include, but not limited to infection, bleeding, damage to adjacent structures, anest hesia complication, nonhealing wound, [place], and even . MODE/CEDRICK Voice ID: [id number] Report ID: [id number]
[2023-10-17] MEDS: PIPER TAZO 3.375 GM in NA CHLORIDE 0.9% 100 ML IV SCH ×2 (02:23→08:16)
--- NOTE | 2023-10-17 06:19 | P.PN ---
Date of Service: 10/17/23 Subjective: Physical Exam: Vitals: reviewed GEN: Alert, oriented, NAD HEENT: Normal conjunctiva, sclera anicteric CV: Regular rate & rhythm, no edema Pulm: Nonlabored respiraitons, clear bilaterally ABD: Soft, nontender, nondistended MSK: No joint tenderness Integumentary: left axillary abscess tender approximately 6 cm Neuro: Normal speech, normal affect Problem List: Left axilla abscess\cellulitis Asthma Morbid Obesity Hypertension h/o Suicide attempt / depression Plan: extremity u/s (10/15): Heterogenous 5.0 x 1.7 cm collection is present in the area of palpable abnormality left axilla. There is increased blood flow in the surrounding tissues. Although nonspecific, this probably represents subcutaneous abscess General surgery consulted NPO for possible I&D today continue empiric zosyn / vanc blood cx: pending follow cultures Monitor CBC PRN analgesic/antiemetics Confirm home medications, restart as appropriate
[2023-10-17 06:34] LABS: Potassium 3.9 mEq/L (3.5-5.1)
[2023-10-17] MEDS: BUPIVACAINE 0.5% PF 10 ML VIAL ONE ×2 (09:02→10:23)
[2023-10-17] MEDS ORDERED: Ringers Lactate 1,000 ML IV ONE (09:21)
[2023-10-17] MEDS ORDERED: ROCURONIUM 50 MG/5 ML VIAL IV ONE (09:41)
[2023-10-17] MEDS ORDERED: FENTANYL CITR 100 MCG/2 ML ONE (09:41)
[2023-10-17] MEDS ORDERED: MIDAZOLAM HCL 2 MG/2 ML INJ ONE (09:41)
[2023-10-17] MEDS ORDERED: LIDOCAINE 2% MPF 5 ML VIAL ONE (09:41)
[2023-10-17] MEDS ORDERED: propofoL 200 MG/20 ML VIAL IV ONE (09:41)
[2023-10-17] MEDS ORDERED: ONDANSETRON 4 MG/2 ML VIAL ONE (09:41)
--- NOTE | 2023-10-17 10:44 | P.BOP ---
Preoperative diagnosis: Left axillary abscess/cellulitis, morbid obesity Postoperative diagnosis: same Primary procedure: Incision and drainage of complex left axillary abscess [id number] Estimated blood loss: <10cc Specimen: pus Findings: abscess Anesthesia: General Complications: None Transferred to: Recovery Room Condition: Good
[2023-10-17] MEDS ORDERED: HYDROCODONE/APAP 5/325 MG TAB PO PRN (10:47)
[2023-10-17] MEDS ORDERED: DEXMEDETOMIDINE HCL 200 MCG/2 ML VIAL ONE (11:07)
[2023-10-17 11:15] VITALS: O2SAT 95
[2023-10-17] MEDS: VANCOMYCIN 2 GM in NA CHLORIDE 0.9% 500 ML IVPB SCH (11:27)
--- NOTE | 2023-10-17 14:16 | OP ---
Date of Procedure: 10/17/2023 Surgeon: Tony Son MD Preoperative Diagnoses: Left axillary abscess, cellulitis, morbid obesity. Postoperative Diagnoses: Left axillary abscess, cellulitis, morbid obesity. Procedure: Incision and drainage of complex left axillary abscess, 6 x 6 x 3 cm. Estimated Blood Loss: Less than 10 mL. Anesthesia: General plus local. Findings: Abscess. Indications For Procedure: This is the case of a 28-year-old patient, comes to us with an abscess on the left axillary area, started on antibiotics. Benefits, alternatives, and risks of I and D of an abscess fully explained, which include, but not limited to infection, bleeding, damage to adjacent st ructures, anesthesia complication, recurrence, NH and even . He also understands this may not r elieve symptoms. He might need more than one surgical intervention. He understands also this will r equire wound care. He signed a consent. Description Of Procedure: The patient was brought to the operating room and placed in supine positio n. Anesthesia was done without complication. Left axilla was prepped and draped in sterile fashion. Local anesthesia was applied followed by sharp incision of the skin. Incision was carried down unt il we have a complex abscess. We opened the loculations. I explored loculations, obtained cultures, removed the pus, and irrigated the area, obtained hemostasis and packed with half-inch iodoform. Th e patient tolerated the procedure well. Local anesthesia was applied. The patient was sent to recovery in stable condition. Sponge count and inst rument counts correct. MODE/CEDRICK Voice ID: [id number] Report ID: [id number]
[2023-10-17] MEDS: MORPHINE 4 MG/ML SYR IV PRN ×2 (15:46→22:55)
[2023-10-17] MEDS: VANCOMYCIN 1.5 GM in NA CHLORIDE 0.9% 500 ML IVPB SCH (20:41)
[2023-10-18 03:19] LABS: Potassium 3.8 mEq/L (3.5-5.1)
[2023-10-18] MEDS: VANCOMYCIN 1.5 GM in NA CHLORIDE 0.9% 500 ML IVPB SCH ×2 (04:58→10:27)
[2023-10-18] MEDS: MORPHINE 4 MG/ML SYR IV PRN ×3 (05:03→14:38)
[2023-10-18] MEDS ORDERED: POTASSIUM CL SA 10 MEQ TAB PO ONE (09:00)
[2023-10-18 19:27] VITALS: BP 139/82; TEMP 97.7
== END 2023-10-18 20:17 | disposition home or self-care (01) ==
LOC: ER 07:18 → ERHOLD 10:11 → 2ND 10:53
PROVIDERS: ADMIT Internal Medicine Nephrology; ATTEND Hospitalist
PROC: 0X950ZX Drainage of Left Axilla, Open Approach, Diagnostic (ICD-10-PCS; principal; 2023-10-17 11:15)
DX: L02.412 Cutaneous abscess of left axilla (principal); L03.112 Cellulitis of left axilla; B95.62 Methicillin resistant Staphylococcus aureus infection as the cause of diseases classified elsewhere; D72.829 Elevated white blood cell count, unspecified; J45.909 Unspecified asthma, uncomplicated; E66.01 Morbid (severe) obesity due to excess calories; I10 Essential (primary) hypertension; R51.9 Headache, unspecified; F32.A Depression, unspecified; Z91.51 Personal history of suicidal behavior; Z68.42 Body mass index [BMI] 45.0-49.9, adult; Z71.3 Dietary counseling and surveillance
CPT/HCPCS: 36415; 76881; 80048; 80053; 80061; 80202; 83036; 83735; 84100; 85025; 87040; 87070; 87075; 87077; 87186; 87205; 94010; 96372; 96374; 96375; 99285; G0378; J0692; J2001; J2250; J2405; J2543; J2704; J3010; J7030; J7040; J7120

== ENCOUNTER → 2023-11-20 | Emergency (ER) | payer SELFPAY ==
--- NOTE | 2023-11-20 15:11 | EDPHYS ---
Physician Documentation [facility] Name: Felix Frias Age: 28 yrs Sex: Male : 1995 Arrival Date: 11/20/2023 Time: 14:02 Bed 9 Private MD: ED Physician Edgar Restrepo HPI: 11/20 14:19 This 28 yrs old Male presents to ER via Ambulatory with complaints of Abscess, jh7 Under arm pain. 14:19 The patient presents with an abscess of the left arm. Description: poorly defined, jh7 erythematous. Onset: The symptoms/episode began/occurred 3 day(s) ago. Associated signs and symptoms: Pertinent positives: swelling, Pertinent negatives: discharge, drainage, fever. 28-year-old male presents with possible abscess to his left axilla x 3 days. He reports that he had another abscess in this area I\T\D when he was hospitalized last time. Denies any fever or drainage. History of hypertension.. Historical: - Allergies: 14:23 No Known Allergies; hb - Home Meds: 14:24 None [Active]; hb - PMHx: 14:23 Asthma; Depression; Hypertension; hb - Immunization history:: Adult Immunizations unknown. - Social history:: Smoking status: Patient denies any tobacco usage or history of. ROS: 14:19 Constitutional: Negative for fever, chills, and weight loss, Neck: Negative for injury, jh7 pain, and swelling, Cardiovascular: Negative for chest pain, palpitations, and edema, Respiratory: Negative for shortness of breath, cough, wheezing, and pleuritic chest pain, Abdomen/GI: Negative for abdominal pain, nausea, vomiting, diarrhea, and constipation, MS/Extremity: Negative for injury and deformity, Neuro: Negative for headache, weakness, numbness, tingling, and seizure, 14:19 Skin: Positive for abscess, of the left arm, Negative for cellulitis, 14:19 All other systems are negative, Exam: 14:19 Constitutional: This is a well developed, well nourished patient who is awake, alert, jh7 and in no acute distress. Cardiovascular: Regular rate and rhythm with a normal S1 and S2. No gallops, murmurs, or rubs. Normal PMI, no JVD. No pulse deficits. Respiratory: Lungs have equal breath sounds bilaterally, clear to auscultation and percussion. No rales, rhonchi or wheezes noted. No increased work of breathing, no retractions or nasal flaring. Abdomen/GI: Soft, non-tender, with normal bowel sounds. No distension or tympany. No guarding or rebound. No evidence of tenderness throughout. MS/ Extremity: Pulses equal, no cyanosis. Neurovascular intact. Full, normal range of motion. Neuro: Awake and alert, GCS 15, oriented to person, place, time, and situation. Motor strength 5/5 in all extremities. Sensory grossly intact. Normal gait. 14:19 Skin: abscess, that is small, of the left axilla,about 5 cm inferior to previously treated abscess, with induration, Vital Signs: 14:19 BP 135 / 73; Pulse 83; Resp 18; Temp 97.5(O); Pulse Ox 100% on R/A; Weight 136.08 kg; hb Height 5 ft. 6 in. ; Pain 4/10; 14:19 Body Mass Index 48.42 (136.08 kg, 167.64 cm) hb 14:19 Pain Scale: Adult hb MDM: 14:21 Patient medically screened. [facility] 14:45 Differential diagnosis: abscess, cellulitis. Data reviewed: vital signs, nurses notes. [facility] Historians other than the Patient: Parent: mom. Care significantly affected by the following chronic conditions: Hypertension. Counseling: I had a detailed discussion with the patient and/or guardian regarding the historical points, exam findings, and any diagnostic results supporting the discharge/admit diagnosis, to return to the emergency department if symptoms worsen or persist or if there are any questions or concerns that arise at home. ED course: Performed ultrasound over the swollen area to determine amount of fluid present. There is only a very small collection of isolated fluid that was not superficial. Informed the patient that we would treat this outpatient but he should return if symptoms worsen.. Administered Medications: No medications were administered Disposition: 11/21 08:55 Co-signature as Attending Physician, Edgar Restrepo MD I reviewed the patient's care rn provided by the Advanced Practice Provider and agree with the diagnosis and treatment plan. Disposition Summary: 11/20/23 15:10 Discharge Ordered Notes: Location: Home [facility] Problem: an ongoing problem [facility] Symptoms: are unchanged [facility] Condition: Stable [facility] Diagnosis - Cutaneous abscess of left axilla [facility] Followup: [facility] - With: Private Physician - When: 2 - 3 days - Reason: Recheck today's complaints Discharge Instructions: - Discharge Summary Sheet [facility] - Skin Abscess [facility] Forms: - Work release form - Medication Reconciliation Form [facility] - Thank You Letter [facility] - Antibiotic Education [facility] - Patient Portal Instructions [facility] - Leadership Thank You Letter [facility] Prescriptions: - mupirocin 2 % Topical ointment - apply 1 application TOPICAL route 3 times per day for 7 days; 22 gram; Refills: [facility] 0, Product Selection Permitted - Clindamycin HCl 300 mg Oral capsule - take 1 capsule ORAL route every 8 hours for 10 days; 30 capsule; Refills: 0, [facility] Product Selection Permitted Signatures: Edgar Restrepo MD MD rn Baxter, Heather, RN RN Jacque Arzola, PERFORMANCE REPORTER PERFORMANCE REPORTER [facility] Corrections: (The following items were deleted from the chart) 11/20 14:24 14:23 Home Meds: Hydrochlorothiazide Oral [Inactive]; hb hb
--- NOTE | 2023-11-20 15:11 | ER ---
Nurse's Notes [facility] Name: Felix Frias Age: 28 yrs Sex: Male : 1995 Arrival Date: 11/20/2023 Time: 14:02 Bed 9 Private MD: Diagnosis: Cutaneous abscess of left axilla Presentation: 11/20 14:19 Chief complaint: Patient states: Pt states he noticed an abscess in his left underarm hb yesterday that is getting worse. Pt had surgical I\T\D to another abscess in same area on 10/15/23 and completed antibiotics. Coronavirus screen: Vaccine status: Patient reports receiving the 2nd dose of the covid vaccine. Coronavirus screen: At this time, the client does not indicate any symptoms associated with coronavirus-19. Ebola Screen: Patient negative for fever greater than or equal to 101.5 degrees Fahrenheit, and additional compatible Ebola Virus Disease symptoms Patient denies exposure to infectious person. Patient denies travel to an Ebola-affected area in the 21 days before illness onset. No symptoms or risks identified at this time. Initial Sepsis Screen: Does the patient meet any 2 criteria? No. Patient's initial sepsis screen is negative. Does the patient have a suspected source of infection? No. Patient's initial sepsis screen is negative. Risk Assessment: Do you want to hurt yourself or someone else? Patient reports no desire to harm self or others. Onset of symptoms was November 19, 2023. 14:19 Method Of Arrival: Ambulatory hb 14:19 Acuity: PARISH 3 hb Triage Assessment: 14:24 General: Appears in no apparent distress. Behavior is calm, cooperative. Pain: hb Complains of pain in left axilla. Historical: - Allergies: 14:23 No Known Allergies; hb - Home Meds: 14:24 None [Active]; hb - PMHx: 14:23 Asthma; Depression; Hypertension; hb - Immunization history:: Adult Immunizations unknown. - Social history:: Smoking status: Patient denies any tobacco usage or history of. Screenin:30 [facility] ED Fall Risk Assessment (Adult) History of falling in the last 3 months, bp including since admission No falls in past 3 months (0 pts). Abuse screen: Denies threats or abuse. Denies injuries from another. Nutritional screening: No deficits noted. Tuberculosis screening: No symptoms or risk factors identified. Vital Signs: 14:19 BP 135 / 73; Pulse 83; Resp 18; Temp 97.5(O); Pulse Ox 100% on R/A; Weight 136.08 kg; hb Height 5 ft. 6 in. ; Pain 4/10; 14:19 Body Mass Index 48.42 (136.08 kg, 167.64 cm) hb 14:19 Pain Scale: Adult hb ED Course: 14:06 Patient arrived in ED. ts1 14:21 Jacque Bean FNP [facility] 14:21 Edgar Restrepo MD is Attending Physician. [facility] 14:22 Triage completed. hb 14:25 Arm band placed on right wrist. Patient placed in an exam room, on a stretcher. hb 14:49 Saul An, RN is Primary Nurse. bp 15:30 Patient has correct armband on for positive identification. bp 15:30 No provider procedures requiring assistance completed. Patient did not have IV access bp during this emergency room visit. Administered Medications: No medications were administered Outcome: 15:10 Discharge ordered by . [facility] 15:30 Discharged to home ambulatory, bp 15:30 Condition: stable 15:30 Discharge instructions given to patient, Instructed on discharge instructions, follow up and referral plans. medication usage, wound care, Demonstrated understanding of instructions, follow-up care, medications, Prescriptions given X 2, 15:31 Patient left the ED. bp Signatures: Silvia Bourgeois, RN RN Saul An, RN RN Jacque Bean FNP [employer] [facility] Migdalia Sharpe PAS [facility] ts1 Corrections: (The following items were deleted from the chart) 14:24 14:23 Home Meds: Hydrochlorothiazide Oral [Inactive]; hb hb
[2023-11-20 15:55] VITALS: BP 135/73; TEMP 97.5; O2SAT 100
== END ==
LOC: ER 14:02
DX: L02.412 Cutaneous abscess of left axilla (principal)
CPT/HCPCS: 99283

== ENCOUNTER → 2024-01-09 | Emergency (ER) | payer SELFPAY ==
[~2024-01-09] MED LIST: KETOROLAC 30 MG/ML INJ ONE; LIDOCAINE 4% PATCH ONE
--- NOTE | 2024-01-09 18:16 | ER ---
Nurse's Notes [facility] Name: Felix Frias Age: 28 yrs Sex: Male : 1995 Arrival Date: 01/09/2024 Time: 16:33 Bed 18 Private MD: Diagnosis: Low back pain Presentation: 01/09 17:15 Chief complaint: Patient states: L low back pain since last night after throwing ph football yesterday, hx of scoliosis and back pain, denies urinary symptoms. Coronavirus screen: Vaccine status: Patient reports being unvaccinated. Ebola Screen: No symptoms or risks identified at this time. Initial Sepsis Screen: Does the patient meet any 2 criteria? No. Patient's initial sepsis screen is negative. Does the patient have a suspected source of infection? No. Patient's initial sepsis screen is negative. Risk Assessment: Do you want to hurt yourself or someone else? Patient reports no desire to harm self or others. Onset of symptoms was January 09, 2024. 17:15 Method Of Arrival: Ambulatory ph 17:15 Acuity: PARISH 4 ph Historical: - Allergies: 16:50 No Known Allergies; ph - PMHx: 16:50 Asthma; Depression; Hypertension; ph - Immunization history:: Adult Immunizations unknown. - Social history:: Smoking status: Patient denies any tobacco usage or history of. Screenin:31 [facility] ED Fall Risk Assessment (Adult) Score/Fall Risk Level 0 - 2 = Low Risk. Abuse as6 screen: Denies threats or abuse. Denies injuries from another. Nutritional screening: No deficits noted. Tuberculosis screening: No symptoms or risk factors identified. Assessment: 17:46 General: Appears in no apparent distress. Behavior is calm, cooperative. Pain: as6 Complains of pain in low back area and left flank Quality of pain is described as sharp, shooting, tender. Neuro: Level of Consciousness is awake, alert, obeys commands, Oriented to person, place, time, situation. Cardiovascular: Capillary refill < 3 seconds Patient's skin is warm and dry. Respiratory: Respiratory effort is even, unlabored, Respiratory pattern is regular, symmetrical. GI: No deficits noted. No signs and/or symptoms were reported involving the gastrointestinal system. : No deficits noted. No signs and/or symptoms were reported regarding the genitourinary system. EENT: No deficits noted. No signs and/or symptoms were reported regarding the EENT system. Derm: Skin is intact, is healthy with good turgor. Musculoskeletal: Reports pain in low back area and left flank. Vital Signs: 17:15 Pulse 90; Resp 18; Temp 97.8; Pulse Ox 99% on R/A; Weight 136.08 kg; Height 5 ft. 6 in. ph ; 17:18 BP 134 / 80; ph 17:15 Body Mass Index 48.42 (136.08 kg, 167.64 cm) ED Course: 16:39 Patient arrived in ED. ae5 16:40 Claude Hernandez PA is PHCP. cp 16:40 Claude Hurtado MD is Attending Physician. cp 17:17 Triage completed. ph 17:17 Arm band placed on Patient placed in an exam room. ph 17:31 Bed in low position. Call light in reach. as6 17:44 Sonny Rothman, MICHELLE is Primary Nurse. as6 17:47 No provider procedures requiring assistance completed. as6 18:26 Patient did not have IV access during this emergency room visit. mb9 Administered Medications: 17:43 Drug: Ketorolac IM 60 mg IM once Route: IM; Site: right vastus lateralis; as6 17:43 Drug: Lidoderm Topical Patch 5 % (700 mg/patch) 1 patches Topical once; leave on for 12 as6 hours; cover most painful area; may cut into smaller pieces Route: Topical; Site: affected area; 17:43 Not Given (Other Intervention Used): [id number] mg IM once; may give if patient is as6 not driving Medication: 17:31 VIS not applicable for this client. as6 Outcome: 17:47 Condition: stable as6 18:16 Discharge ordered by . cp 18:26 Discharged to home ambulatory, with family, mb9 18:26 Discharge instructions given to patient, Instructed on discharge instructions, follow up and referral plans. Demonstrated understanding of instructions, follow-up care, medications, Prescriptions given X 4, 18:26 Patient left the ED. marty Signatures: Lilly Bazzi RN RN Claude Hernandez PA PA cp Sonny Rothman RN RN as6 Ashley Lyons RN RN mb9 Kelly Figueroa ae5
--- NOTE | 2024-01-09 18:16 | EDPHYS ---
Physician Documentation [facility] Name: Felix Frias Age: 28 yrs Sex: Male : 1995 Arrival Date: 01/09/2024 Time: 16:33 Bed 18 Private MD: ED Physician Claude Hurtado HPI: 01/09 17:45 This 28 yrs old Male presents to ER via Ambulatory with complaints of Back cp Pain. 17:45 The patient presents with pain chronic pain that became worse yesterday. Patient denies cp any acute injury, but reports threw a football that may have made pain worse. 17:45 The symptoms are located in the low back. Onset: The symptoms/episode began/occurred cp chronic, became worse yesterday. The pain does not radiate. Associated signs and symptoms: Pertinent negatives: abdominal pain, constipation, fever, incontinence, numbness, tingling, urinary retention, weakness, radiation to lower extremities. Severity of symptoms: in the emergency department the symptoms are unchanged, despite home interventions. Historical: - Allergies: 16:50 No Known Allergies; ph - PMHx: 16:50 Asthma; Depression; Hypertension; ph - Immunization history:: Adult Immunizations unknown. - Social history:: Smoking status: Patient denies any tobacco usage or history of. ROS: 17:50 Constitutional: Negative for body aches, chills, fever, poor PO intake, cp 17:50 Cardiovascular: Negative for chest pain, edema, palpitations, cp 17:50 Respiratory: Negative for cough, shortness of breath, wheezing, 17:50 Abdomen/GI: Negative for abdominal pain, vomiting, diarrhea, constipation, bowel incontinence, 17:50 Back: Positive for pain at rest, pain with movement, of the low back area, 17:50 : Negative for urinary symptoms, difficulty urinating, bladder incontinence, testicular pain 17:50 Neuro: Negative for numbness, tingling, weakness, 17:50 All other systems are negative, Exam: 17:55 Constitutional: The patient appears in no acute distress, alert, awake, non-toxic, well cp developed, well nourished, obese, uncomfortable, 17:55 Head/Face: Normocephalic, atraumatic. cp 17:55 Eyes: Periorbital structures: appear normal, Conjunctiva: normal, no exudate, no injection, Sclera: no appreciated abnormality, Lids and lashes: appear normal, bilaterally, 17:55 ENT: External ear(s): are unremarkable, Nose: is normal, Mouth: Lips: moist, Oral mucosa: pink and intact, moist, Posterior pharynx: is normal, airway is patent, no erythema, no exudate, 17:55 Chest/axilla: Inspection: normal, 17:55 Cardiovascular: Rate: normal, 17:55 Respiratory: the patient does not display signs of respiratory distress, Respirations: normal, no use of accessory muscles, no retractions, labored breathing, is not present, Breath sounds: are clear throughout, no decreased breath sounds, 17:55 Abdomen/GI: Inspection: obese Palpation: abdomen is soft and non-tender, in all quadrants, 17:55 Back: pain, that is moderate, of the lumbar area, left low back and left mid back, ROM is painful, with all movement, Straight leg raises: of both lower extremities does not illicit pain, 17:55 Skin: cellulitis, is not appreciated, no rash present. 17:55 Neuro: Motor: moves all fours, strength is normal, Sensation: is normal, Deep tendon reflexes are 2+ (normal) in the right patellar, right Achilles, left patellar and left Achilles, Vital Signs: 17:15 Pulse 90; Resp 18; Temp 97.8; Pulse Ox 99% on R/A; Weight 136.08 kg; Height 5 ft. 6 in. ph ; 17:18 BP 134 / 80; ph 17:15 Body Mass Index 48.42 (136.08 kg, 167.64 cm) ph MDM: 17:15 Patient medically screened. 18:00 Differential diagnosis: Cholelithiasis Pyelonephritis ruptured disc, Ureterolithiasis cp sciatica, cauda equina, spinal stenosis. 18:15 Data reviewed: vital signs, nurses notes. cp 18:15 I considered the following discharge prescriptions or medication management in the emergency department Medications were administered in the Emergency Department. See MAR. Care significantly affected by the following chronic conditions: Obesity. Counseling: I had a detailed discussion with the patient and/or guardian regarding the historical points, exam findings, and any diagnostic results supporting the discharge/admit diagnosis, the need for outpatient follow up, a family practitioner, to return to the emergency department if symptoms worsen or persist or if there are any questions or concerns that arise at home. Response to treatment: the patient's symptoms have mildly improved after treatment, and as a result, I will discharge patient. Administered Medications: 17:43 Drug: Ketorolac IM 60 mg IM once Route: IM; Site: right vastus lateralis; as6 17:43 Drug: Lidoderm Topical Patch 5 % (700 mg/patch) 1 patches Topical once; leave on for 12 as6 hours; cover most painful area; may cut into smaller pieces Route: Topical; Site: affected area; 17:43 Not Given (Other Intervention Used): [id number] mg IM once; may give if patient is as6 not driving Disposition Summary: 01/09/24 18:16 Discharge Ordered Notes: Location: Home cp Problem: new cp Symptoms: have improved cp Condition: Stable cp Diagnosis - Low back pain cp Followup: cp - With: Private Physician - When: 2 - 3 days - Reason: Recheck today's complaints Discharge Instructions: - Discharge Summary Sheet cp - Chronic Back Pain cp - Heat Therapy cp - Back Exercises cp Forms: - Medication Reconciliation Form cp - Thank You Letter cp - Antibiotic Education cp - Prescription Opioid Use cp - Patient Portal Instructions cp - Leadership Thank You Letter cp Prescriptions: - Lidoderm 5 % Topical adhesive patch, medicated - apply 2 patch TOPICAL route daily leave on most painful area for up to 12 hrs; cp 20 patch; Refills: 0, Product Selection Permitted - Diclofenac Sodium 75 mg Oral Tablet Sustained Release - take 1 tablet ORAL route 2 times per day; 30 tablet; Refills: 0, Product cp Selection Permitted - Medrol ([place]) 4 mg Oral Tablets, Dose Pack - take 1 tablet ORAL route as directed - follow package instructions; 1 packet; cp Refills: 0, Product Selection Permitted - orphenadrine citrate 100 mg Oral Tablet Sustained Release - take 1 tablet ORAL route 2 times per day As needed; 20 tablet; Refills: 0, cp Product Selection Permitted Signatures: Lilly Bazzi RN RN Claude Sanches PA PA cp Sonny Rothman RN RN as6
[2024-01-09 19:06] VITALS: BP 134/80; TEMP 97.8; O2SAT 99
== END ==
LOC: ER 16:33
DX: M54.50 Low back pain, unspecified (principal)
CPT/HCPCS: J2001

== ENCOUNTER 2025-08-11 15:04 | Emergency (ER) | payer SELFPAY ==
[2025-08-11] MEDS ORDERED: KETOROLAC 30 MG/ML INJ ONE (16:35)
[2025-08-11] MEDS ORDERED: CYCLOBENZAPRINE 10 MG TAB ONE (16:36)
--- NOTE | 2025-08-11 17:07 | RAD REPORT ---
EXAMINATION: Lumbar Spine 3 Views CLINICAL INDICATION: Male, 30 years old. PAIN TECHNIQUE: AP, lateral, focused lateral lumbosacral views of the lumbar spine were obtained. [id number]. COMPARISON: No prior exam. FINDINGS: ALIGNMENT: Alignment of the lumbar spine is within normal limits. BONES: Vertebral bodies are normal in height. No aggressive osseous lesions. DEGENERATIVE: Disc heights are maintained. SOFT TISSUE: No soft tissue abnormalities. IMPRESSION: No acute lumbar spine abnormality.
--- NOTE | 2025-08-11 17:22 | ER ---
Nurse's Notes [facility] Name: Felix Frias Age: 30 yrs Sex: Male : 1995 Arrival Date: 08/11/2025 Time: 15:03 Bed 11 Private MD: Diagnosis: Muscle spasm of back Presentation: 08/11 15:23 Chief complaint: Right low back pain that started after bending over for trash bag this morning. Coronavirus screen: At this time, the client does not indicate any symptoms associated with coronavirus-19. Ebola Screen: No symptoms or risks identified at this time. Initial Sepsis Screen: Does the patient meet any 2 criteria? No. Patient's initial sepsis screen is negative. Does the patient have a suspected source of infection? No. Patient's initial sepsis screen is negative. Risk Assessment: Do you want to hurt yourself or someone else? Patient reports no desire to harm self or others. Onset of symptoms was August 11, 2025. 15:23 Method Of Arrival: Wheelchair 15:23 Acuity: PARISH 4 hb Historical: - Allergies: 15:24 No Known Allergies; hb - PMHx: 15:24 Asthma; Depression; Hypertension; hb - PSHx: 15:24 left arm; hb - Immunization history:: Adult Immunizations up to date. - Infectious Disease History:: Denies. - Family history:: not pertinent. - Hospitalizations: : No recent hospitalization is reported. - Social history:: Smoking status: unknown. Screenin:52 [facility] ED Fall Risk Assessment (Adult) History of falling in the last 3 months, jl7 including since admission No falls in past 3 months (0 pts) Confusion or Disorientation No (0 pts) Intoxicated or Sedated No (0 pts) Impaired Gait No (0 pts) Mobility Assist Device Used No (0 pt) Altered Elimination No (0 pt) Score/Fall Risk Level 0 - 2 = Low Risk Oriented to surroundings, Maintained a safe environment. Abuse screen: Denies threats or abuse. Denies injuries from another. Nutritional screening: No deficits noted. Tuberculosis screening: No symptoms or risk factors identified. Assessment: 16:52 General: Appears in no apparent distress. uncomfortable, Behavior is calm, cooperative, jl7 appropriate for age. Pain: Complains of pain in low back area Pain radiates to right low back Pain currently is 9 out of 10 on a pain scale. Quality of pain is described as sharp, shooting, Is continuous. Neuro: Level of Consciousness is awake, alert, obeys commands, Oriented to person, place, time, situation. Cardiovascular: Patient's skin is warm and dry. Respiratory: Airway is patent Respiratory effort is even, unlabored, Respiratory pattern is regular, symmetrical. Derm: Skin is pink, warm \T\ dry. Vital Signs: 15:23 BP 118 / 51; Pulse 77; Resp 18; Temp 97.3; Pulse Ox 100% on R/A; Weight 141.97 kg; hb Height 5 ft. 6 in. ; Pain 9/10; 16:52 BP 130 / 68; Pulse 65; Resp 17; Pulse Ox 95% ; Pain 9/10; jl7 17:45 Pain 7/10; jl7 17:45 Pain 7/10; jl7 17:45 BP 125 / 65; Pulse 65; Resp 15; Pulse Ox 100% ; Pain 7/10; jl7 15:23 Body Mass Index 50.52 (141.97 kg, 167.64 cm) hb 15:23 Pain Scale: Adult hb 16:52 Pain Scale: Adult jl7 17:45 Pain Scale: Adult jl7 17:45 Pain Scale: Adult jl7 17:45 Pain Scale: Adult jl7 ED Course: 15:03 Patient arrived in ED. eb 15:03 Edgar Restrepo MD is Attending Physician. rn 15:24 Triage completed. hb 16:52 Patient has correct armband on for positive identification. Provided Education on: use jl7 of call wood. 16:52 No provider procedures requiring assistance completed. Patient did not have IV access jl7 during this emergency room visit. 17:00 XRAY Lumbar Spine (3 Views) In Process Unspecified. EDMS 17:53 Arm band placed on right wrist. jl7 Administered Medications: 16:52 Drug: Cyclobenzaprine PO 10 mg PO once Route: PO; jl7 17:45 Follow up: Pain 7/10 Adult; Response: No adverse reaction; Pain is decreased; RASS: jl7 Alert and Calm (0) 16:52 Drug: Ketorolac IM 30 mg IM once Route: IM; Site: right deltoid; jl7 17:45 Follow up: Pain 7/10 Adult; Response: No adverse reaction; Pain is decreased jl7 Medication: 16:52 VIS not applicable for this client. jl7 Outcome: 17:21 Discharge ordered by . ty 17:53 Discharged to home ambulatory, vangie 17:53 Condition: stable 17:53 Discharge instructions given to patient, Instructed on discharge instructions, follow up and referral plans. medication usage, Demonstrated understanding of instructions, follow-up care, medications, Prescriptions given X 1, 17:53 Patient left the ED. jlAlena Signatures: Dispatcher [employer] EDMS Edgar Restrepo MD MD rn Baxter, Heather, RN RN hb Leal, Jahala, RN RN jl7 Botello, Elizabeth eb
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
[2025-08-11 18:16] VITALS: TEMP 97.3
[2025-08-11 18:18] VITALS: BP 125/65; O2SAT 100
== END 2025-08-11 17:53 | disposition home or self-care (01) ==
LOC: ER 15:04
DX: M62.830 Muscle spasm of back (principal); M54.9 Dorsalgia, unspecified; G89.29 Other chronic pain; I10 Essential (primary) hypertension; F32.A Depression, unspecified; J45.909 Unspecified asthma, uncomplicated
CPT/HCPCS: 72100; 96372; 99284